=== PATIENT | male | born 1955 | race Asian ===

== ENCOUNTER 2017-01-07 10:03 | Emergency (ER) | payer MEDICARE ==
[~2017-01-07] VITALS: Ht 170.2 cm; Wt 93.2 kg
[~2017-01-07 10:03] MED LIST: AMLO5TAB2 PO; ASPI-973 PO; CALC0.257 PO; CLOP75TA28 PO; FURO-128 PO; INSU100I13 SQ; INSU100I18 SQ; METO25TA6 PO; SIMV40TA5 PO
[2017-01-07 10:14] VITALS: BP 191/102; PULSE 80; RESP 18; O2SAT 98
[2017-01-07] MEDS ORDERED: 0.9% Sodium Chloride 1,000 ML IV ONE (10:26)
--- NOTE | 2017-01-07 10:28 | ED.REPORT ---
HPI-Dizziness / Weakness Date of Service Jan 07, 2017 ED Provider: Cristobal Osorio MD 61 year old male with a history of ND, IDDM and HTN presents to the ER accompanied by his sister referred from urgent care complaining of dizziness onset this morning. Symptoms are described as "wooziness" with ambulation; the sensation of "getting off of a [id number]". Associated symptoms include diaphoresis, and nausea. Patient denies any chest pain, SOB, palpitations, weakness, numbness, tingling, changes in vision, and changes in speech. Currently symptoms are mostly resolved. Similar symptoms with prior ND. He also reports similar episodes in the past, most recently four days ago, but less severe than today. His metoprolol dose was recently adjusted. Nursing Notes Stated Complaint: DIZZY,SWEATING Chief Complaint: Neuro Symptoms/ Deficits Nursing Notes Reviewed: Yes Allergies: Coded Allergies: lisinopril (Verified Adverse Reaction, Unknown, cough, 08/21/16) Scheduled Amlodipine (Amlodipine) 5 Mg Tablet 5 MG PO DAILY Aspirin (Aspirin) 81 Mg Tablet 81 MG PO DAILY Calcitriol (Rocaltrol) 0.25 Mcg Capsule 0.25 MCG PO DAILY Clopidogrel (Clopidogrel) 75 Mg Tablet 75 MG PO DAILY Furosemide (Lasix) 40 Mg Tablet 20 MG PO DAILY Insulin Glargine (Lantus U100 Solostar Insulin Pen) 100 Unit/1 Ml Insuln.pen 40 UNITS SQ DAILY Insulin Lispro (HumaLOG U100 Insulin Pen) 100 Unit/1 Ml Insuln.pen SQ BIDWM Metoprolol Tartrate (Metoprolol Tartrate) 25 Mg Tablet 25 MG PO BID Simvastatin (Simvastatin) 40 Mg Tablet 40 MG PO DAILY General Time Seen by MD: 10:25 Chief Complaint Dizzy Hx Obtained From: Patient Arrived By: Walk-in Onset Occurred: 1 - 4 hours ago Symptom Duration: Since onset Associated with: Reports: Nausea, Denies: Chest pain, Palpitations, Speech problem, Vomiting Related History: Reports: Diabetes mellitus, Hypertension Recent Healthcare: Recent doctor visit Similar Sx Previous: Yes Past Medical History 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 Malave Past Medical History ND Reports: Diabetes mellitus, Hypertension Reports: Renal failure Past Surgical History none reported Smoking History Never Smoker Social History Alcohol Use: "Social" Other Social History: Good social support Ambulatory Status Independent Review of Systems Respiratory: Denies: Non-productive cough, Shortness of breath Cardiovascular: Denies: Chest pain, Palpitations GI: Reports: Nausea, Denies: Vomiting Skin: Reports Diaphoresis Neurologic: Reports: Dizziness, Problem walking, Spinning sensation, Denies: Focal weakness, Numbness, Slurred speech, Syncope Complete sys rev & neg: except as marked. Musculoskeletal: Denies: Extremity swelling Physical Exam Initial Vital Signs Vital Signs (First) Date Time Temp Pulse Resp B/P Pulse Ox O2 Delivery O2 Flow Rate FiO2 01/07/17 10:14 35.9 80 18 191/102 98 Room Air Initial VS: Reviewed Neck: Supple, Non-tender, Full range of motion Abdomen / GI: Soft, Non-tender, No guarding, No rebound, No distention Extremities: Vascular intact, Neuro intact, No swelling, No tenderness Skin: Warm, Dry, No cyanosis Psychiatric: Mood/affect normal, Behavior normal, Normal thought content General/Constitutional: Awake, Alert, Well developed, Well nourished Respiratory / Chest: Breath sounds NL, Breath sounds = bilat, No respiratory distress, No rales, No rhonchi, No wheezing Cardiovascular: Heart rate NL, Regular rhythm, Heart sounds NL, No murmurs, Cap refill not delayed, Peripheral circulation NL Neurologic: Oriented X3, Speech NL, No motor deficits, No sensory deficits, CN II - XII intact, Cerebellar NL Lexx Hallpike test negative. Interpretation & Diagnostics Lab Results Interpretation Result Diagram: 01/07/17 1041 01/07/17 1135 Test 01/07/17 10:41 01/07/17 11:35 01/07/17 13:00 White Blood Count 9.0th/mm3 (3.8-10.1) Red Blood Count 5.01mil/mm3 (4.40-5.80) Hemoglobin 14.5g/dL (13.8-17.2) Hematocrit 42.3% (41.0-50.0) Mean Corpuscular Volume 84.4fL (81-100) Mean Corpuscular Hemoglobin 28.9pg (27.0-35.0) Mean Corpuscular Hemoglobin Concent 34.3% (32.0-37.0) Red Cell Distribution Width 13.9% (12.3-15.4) Platelet Count 219bil/L (150-400) Neutrophils (%) (Auto) 78.4% (40-74) Lymphocytes (%) (Auto) 11.6% (14-46) Monocytes (%) (Auto) 7.8% (4-12) Eosinophils (%) (Auto) 1.9% (0-5) Basophils (%) (Auto) 0.1% (0-3) Sodium Level 138mEq/L (134-144) Potassium Level 4.0mEq/L (3.5-5.2) Chloride Level 104mEq/L (97-108) Carbon Dioxide Level 17mmol/L (18-29) Blood Urea Nitrogen 42mg/dL (8-27) Creatinine 3.15mg/dL (0.76-1.27) Estimat Glomerular Filtration Rate 21mL/min (>59) Glucose Level 267mg/dL (60-99) Calcium Level 8.5mg/dL (8.5-10.1) Magnesium Level 2.0mg/dL (1.6-2.6) Total Bilirubin 0.8mg/dL (0.0-1.2) Aspartate Amino Transf (AST/SGOT) 20U/L (0-50) Alanine Aminotransferase (ALT/SGPT) 21U/L (0-44) Alkaline Phosphatase 91U/L (25-160) Total Protein 6.6g/dL (6.4-8.4) Albumin 3.1g/dL (3.4-5.0) Troponin T 0.041ug/L (0.0-0.011) ECG Interpretation ECG Interpretation: Sinus rhythm, rate [address] T changes Time: 11:14 Interpreted by: ED physician X-Ray Chest Interpretation Chest Xray Interpretation: IMPRESSION: Low lung volumes, interstitial prominence, and cardiomegaly. These findings may be associated with mild fluid overload. Dictated by: Delphine Ford M.D. on 01/07/2017 at 10:52 Approved by: Delphine Ford M.D. on 01/07/2017 at 10:53 View: Portable, 1 view Interpretation / Wet Read by: Interpret - Radiologist Re-Eval/Medical Decision Med Decision/Clinical Course 61-year-old male history of hypertension, diabetes presenting complaining of dizziness today. On arrival his blood pressure was elevated. Gave anti-hypertensive here and his blood pressure was stabilized and his symptoms resolved. He has chronic kidney disease with creatinine of 3. He had initially elevated troponins 0.04. Repeat troponin 2 hours later unchanged. His dizziness resolved. Possibly due to hypertension. His orthostatics were normal. Discussed with cardiology who agrees with stable elevated troponins in the setting of chronic kidney disease okay to discharge home with planned follow-up with primary doctor tomorrow. Return precautions given. Source of Hx: Old records Re-Evaluation/Progress #1: Time of Eval: 10:52 Re-Evaluation/Progress Note: Updated patient on the plan of care. Re-Evaluation/Progress #2: Time of Eval: 15:40 Re-Evaluation/Progress Note: Discussed lab and radiology results and plan to discharge. Patient is amenable to the plan. Return precautions given. All other questions addressed. Consultation : Referral / Consult Name: Blayne Singh MD Consulted With: Cardiology Call Returned at: 15:15 Note: Ok to send home with plan for follow-up. Counseled Regarding: Diagnosis, Lab results, Need for follow-up, When/why to return to ED Patient Discharge & Departure Impression: Primary Impression: Dizziness Disposition: Home Discharge Condition All VS Reviewed: Yes Condition: Stable Additional Instructions: Your dizziness has resolved here in the ER. Call your primary care physician to arrange a follow-up appointment for tomorrow. Return to the ER if you develop worsening dizziness, visual changes, difficulty speaking or swallowing, chest pain, shortness of breath, weakness, tingling, numbness, or any other concerning symptoms. Referrals: Aaron Woods MD (PCP) Carla Rainey MD (Family) Aida Attestation Portions of this note were transcribed by Carlo Hernandez. I, Dr. Osorio, personally performed the history, physical exam and medical decision-making; I reviewed and confirmed the accuracy of the information in the transcribed note. Signed by: Aida Bonilla, 01/07/2017 and 15:36 Carla Rainey MD; Aaron Woods MD, Ben M MD Jan 07, 2017 10:28 CARLO HERNANDEZ Jan 07, 2017 10:50
--- NOTE | 2017-01-07 10:54 | DRSVH ---
PROCEDURE: X-RAY CHEST ONE VIEW, PORTABLE ([id number]) INDICATIONS: dizziness TECHNIQUE: One view of the chest was acquired. COMPARISON: [facility], CR, XR CHEST 1VW (PORTABLE), 08/21/2016, 0:58. FINDINGS: Surgical changes and devices: None. Lungs and pleura: Lung volumes are low. Streaky opacities are present in the bilateral lung bases. Th ere is diffuse interstitial prominence. Mediastinum: Mediastinal contours appear normal. Heart size is enlarged, as before. Bones and chest wall: No suspicious bony lesions. Overlying soft tissues appear unremarkable. IMPRESSION: Low lung volumes, interstitial prominence, and cardiomegaly. These findings may be associ ated with mild fluid overload. Dictated by: Delphine Ford M.D. on 01/07/2017 at 10:52 Approved by: Delphine Ford M.D. on 01/07/2017 at 10:53
[2017-01-07] MEDS ORDERED: hydrALAZINE 20 mg/mL Inj IV ONE (10:55)
[2017-01-07] MEDS ORDERED: Insulin GLARgine 100 Unit/mL Syringe SUBQ ONE (10:55)
[2017-01-07] MEDS ORDERED: Insulin LISPRO 300 Unit/3 mL Inj SUBQ ONE (10:55)
[2017-01-07 10:59] LABS: BASOPHILS % (AUTO) 0.1 % (0-3); EOSINOPHILS % (AUTO) 1.9 % (0-5); MONOCYTES % (AUTO) 7.8 % (4-12); Mean Corpuscular Hemoglobin 28.9 pg (27.0-35.0); Mean Corpuscular Volume 84.4 fL (81-100); NEUTROPHILS % (AUTO) 78.4 % (40-74); Platelet Count 219 bil/L (150-400)
[2017-01-07 11:01] VITALS: BP 166/93; PULSE 82; RESP 21; O2SAT 96
[2017-01-07 11:26] VITALS: BP_SYST 142; BP_SYST 159; BP_SYST 173; BP_DIAS 84; BP_DIAS 85
[2017-01-07 12:39] LABS: TROPONIN T 0.039 ug/L (0.0-0.011)
[2017-01-07 13:26] VITALS: PULSE 91; O2SAT 95
[2017-01-07 15:51] VITALS: BP 163/82; PULSE 88; RESP 20; O2SAT 96
[2017-03-14] MEDS ORDERED: SODI650T PO (10:04)
[2017-03-14] MEDS ORDERED: NITR0.4T SL (10:04)
== END 2017-01-07 15:51 | disposition home or self-care (01) ==
LOC: SED 10:03
DX: R42 Dizziness and giddiness (principal); R61 Generalized hyperhidrosis; R11.0 Nausea; I11.9 Hypertensive heart disease without heart failure; E11.59 Type 2 diabetes mellitus with other circulatory complications; I25.2 Old myocardial infarction; Z79.82 Long term (current) use of aspirin; Z79.4 Long term (current) use of insulin; Z88.8 Allergy status to other drugs, medicaments and biological substances
CPT/HCPCS: 36415; 71010; 80053; 82948; 83735; 84484; 85025; 93005; 96361; 96372; 96374; 99285; J0360; J1815; J7030

== ENCOUNTER 2017-01-27 03:03 | Inpatient (IN) | payer MEDICARE ==
[2017-01-27] VITALS (13 sets, daily range): BP systolic 127–173; BP diastolic 75–93; PULSE 70–109; RESP 20–36; O2SAT 89–98
[~2017-01-27] VITALS: Ht 170.2 cm; Wt 95.5 kg
[2017-01-27] MEDS ORDERED: Albuterol 2.5 mg/3 mL Inhalation Solution NEB ONE (03:19)
[2017-01-27] MEDS ORDERED: Albuterol-Ipratropium 3 mL Inhalation Solution ONE (03:19)
[2017-01-27 03:23] LABS: BASOPHILS % (AUTO) 0.2 % (0-3); EOSINOPHILS % (AUTO) 3.8 % (0-5); MONOCYTES % (AUTO) 10.4 % (4-12); Mean Corpuscular Hemoglobin 28.8 pg (27.0-35.0); Mean Corpuscular Volume 84.9 fL (81-100); NEUTROPHILS % (AUTO) 69.3 % (40-74); Platelet Count 280 bil/L (150-400)
--- NOTE | 2017-01-27 03:35 | ED.REPORT ---
HPI-General Illness Date of Service Jan 27, 2017 ED Provider: Suresh Martinez MD Patient is a 61 year old male with a history of coronary artery disease with prior NSTEMI, hypertension, hyperlipidemia, diabetes mellitus, and chronic kidney disease who presents to the ED via EMS complaining of increasing shortness of breath for the past 2-3 weeks. Patient is on a CPAP at night and states that he awoke from sleep this morning feeling very short of breath. The patient reports dyspnea on exertion, with even short stretches causing him to become short of breath. The patient admits to increased swelling in his legs in conjunction with his shortness of breath. He denies a productive cough, chest pain, fever, or chills. The patient was seen by his PCP on January 23 for this complaint. Nursing Notes Stated Complaint: SHORT OF BREATH Chief Complaint: Respiratory Distress Nursing Notes Reviewed: Yes Allergies: Coded Allergies: lisinopril (Verified Adverse Reaction, Unknown, cough, 01/27/17) Scheduled Amlodipine (Amlodipine) 5 Mg Tablet 5 MG PO BID Aspirin (Aspirin) 81 Mg Tablet 81 MG PO DAILY Atorvastatin (Lipitor) 40 Mg Tablet 40 MG PO HS Calcitriol (Rocaltrol) 0.25 Mcg Capsule 0.5 MCG PO DAILY Cholecalciferol (Vitamin D3) (Vitamin D3) 2,000 Unit Capsule 2,000 UNIT PO DAILY Clopidogrel (Clopidogrel) 75 Mg Tablet 75 MG PO DAILY Furosemide (Lasix) 40 Mg Tablet 20 MG PO DAILY Insulin Glargine (Lantus U100 Solostar Insulin Pen) 100 Unit/1 Ml Insuln.pen 45 UNITS SQ HS Insulin Lispro (HumaLOG U100 Insulin Pen) 100 Unit/1 Ml Insuln.pen SQ BIDWM 18-22 units subcutaneous route two times a day with meals for diabetes Metoprolol Tartrate (Metoprolol Tartrate) 25 Mg Tablet 50 MG PO BID General Time Seen by MD: 03:08 Chief Complaint Breathing problem Hx Obtained From: Patient Arrived By: Ambulance Sudden in Onset?: No Onset Occurred: More than a week ago... 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 Malave Past Medical History CKD stage 3 NSTEMI depression anxiety Reports: Coronary artery disease, Diabetes mellitus, Hypertension Reports: Renal failure Past Surgical History Cardiac Catheterization in 2008 kidney biopsy right toe amputation Smoking History Former Smoker Social History Alcohol Use: "Social" Other Social History: Good social support, Local resident Ambulatory Status Independent Review of Systems Full Review of Systems Constitutional: Denies: Chills, Fever Respiratory: Reports: Dyspnea on exertion, Shortness of breath, Denies: Prod cough, green, Prod cough, yellow Cardiovascular: Denies: Chest pain Musculoskeletal: Reports: Extremity swelling Complete sys rev & neg: except as marked. Physical Exam Vital Signs Vital Signs Date Time Temp Pulse Resp B/P Pulse Ox O2 Delivery O2 Flow Rate FiO2 01/27/17 03:54 84 26 158/75 98 7 01/27/17 03:27 92 30 98 Aerosol Mask 8 01/27/17 03:17 36 97 Nasal Cannula 4 01/27/17 03:11 36.7 92 33 171/93 89 Room Air Initial VS: Reviewed Skin: Warm, Dry, No cyanosis Neurologic: Alert, Oriented, Nonfocal Psychiatric: Mood/affect normal, Behavior normal, Normal thought content General/Constitutional: Awake, Alert, No acute distress Appearance / Presentation: Positive: Obese Head / Eyes: Atraumatic, Normocephalic, PERRL ENT: Airway patent, Mucous membranes moist Neck: Atraumatic, Supple Respiratory / Chest: No respiratory distress, No wheezing Rales / Rhonchi: Positive: Rales bilateral bases Cardiovascular: Heart rate NL, Regular rhythm, Heart sounds NL, No murmurs Abdomen: Soft, Non-tender, No guarding, No rebound Upper Extremities Upper Extremity / MS: No swelling, No edema Lower Extremity / Pelvis / MS: Neurologic intact, Vascular intact 2+ pitting edema to the legs bilaterally, with chronic skin changes Interpretation & Diagnostics Lab Results Interpretation Result Diagram: 01/27/17 0310 01/27/17 0310 Test 01/27/17 03:10 01/27/17 03:15 01/27/17 04:20 White Blood Count 9.1th/mm3 (3.8-10.1) Red Blood Count 4.96mil/mm3 (4.40-5.80) Hemoglobin 14.3g/dL (13.8-17.2) Hematocrit 42.1% (41.0-50.0) Mean Corpuscular Volume 84.9fL (81-100) Mean Corpuscular Hemoglobin 28.8pg (27.0-35.0) Mean Corpuscular Hemoglobin Concent 34.0% (32.0-37.0) Red Cell Distribution Width 14.5% (12.3-15.4) Platelet Count 280bil/L (150-400) Neutrophils (%) (Auto) 69.3% (40-74) Lymphocytes (%) (Auto) 16.0% (14-46) Monocytes (%) (Auto) 10.4% (4-12) Eosinophils (%) (Auto) 3.8% (0-5) Basophils (%) (Auto) 0.2% (0-3) Sodium Level 140mEq/L (134-144) Potassium Level 3.9mEq/L (3.5-5.2) Chloride Level 105mEq/L (97-108) Carbon Dioxide Level 16mmol/L (18-29) Blood Urea Nitrogen 78mg/dL (8-27) Creatinine 4.03mg/dL (0.76-1.27) Estimat Glomerular Filtration Rate 16mL/min (>59) Glucose Level 122mg/dL (60-99) Calcium Level 9.8mg/dL (8.5-10.1) Total Bilirubin 0.8mg/dL (0.0-1.2) Aspartate Amino Transf (AST/SGOT) 29U/L (0-50) Alanine Aminotransferase (ALT/SGPT) 26U/L (0-44) Alkaline Phosphatase 101U/L (25-160) Troponin T 0.072ug/L (0.0-0.011) Pro-B-Type Natriuretic Peptide 1289pg/mL (0-210) Total Protein 8.0g/dL (6.4-8.4) Albumin 4.1g/dL (3.4-5.0) Magnesium Level 2.4mg/dL (1.6-2.6) Hold [place] Top Tube Received (Received) ECG Interpretation ECG Interpretation: Sinus rhythm, Rate 90 Probable left atrial enlargement Right axis deviation Time: 03:30 Interpreted by: ED physician Normal ECG Interpretation: No acute ischemic changes X-Ray Chest Interpretation Chest Xray Interpretation: Impression: Left lower lobe pneumonia. Pleural effusions right lower lobe. Changes consistent with CHF. View: Portable Interpretation / Wet Read by: Wet read ED physician Reviewed Previous Films: Worse Re-Eval/Medical Decision Med Decision/Clinical Course 61-year-old presents with shortness of breath over a two week span worsening today, finally forced in here by female family members. Is a left lower lobe pneumonia on x-ray. Begun with community-acquired pneumonia meds. He will need admission, as he was fairly short of breath, and has acute kidney injury, worsening over the past several months, and some complicating CHF as an issue. Troponin is noted elevated, but probably concomitant with his renal failure. Transported in improved condition. Source of Hx: Old records Time of Eval: 04:13 Patient Status: Condition improved Re-Evaluation/Progress Note: The patient was informed that he has pneumonia. Patient will be admitted to the hospital for further care. Patient understands and agrees with this plan. All questions were addressed. Consultation : Referral / Consult Name: Mary Smith DO Consulted With: Hospitalist Call Returned at: 04:27 Lay Brother: Will see patient, Agrees with eval, Agrees with plan, Accepts admit Note: Spoke with Dr. Smith, hospitalist, who agrees to accept admit. Counseled Regarding: Diagnosis, Lab results, Need for admission Discharge & Departure Primary Impression: Pneumonia Pneumonia type: due to unspecified organism Laterality: left Lung location : lower lobe of lung Qualified Code: J18.9 - Pneumonia, unspecified organism Additional Impressions: CHF (congestive heart failure) Congestive heart failure type: unspecified congestive heart failure type Congestive heart failure chronicity: acute Qualified Code: I50.9 - Heart failure, unspecified Elevated troponin Disposition: ADMITTED TO HOSPITAL Discharge Condition All VS Reviewed: Yes Condition: Stable Referrals: Aaron Woods MD (PCP) Carla Rainey MD (Family) Aida Attestation Portions of this note were transcribed by Philomena Ludwig. I, Dr. Martinez personally performed the history, physical exam and medical decision-making; I reviewed and confirmed the accuracy of the information in the transcribed note. Signed by: Aida Whyte, 01/27/2017 0537 copies to: Aaron Woods MD, Christopher W MD Jan 27, 2017 03:35 Philomena Ludwig Jan 27, 2017 03:37
[2017-01-27] MEDS ORDERED: cefTRIAXone Inj 2,000 MG in Dextrose 5% Minibag Plus 50 ML IV ONE (04:05)
[2017-01-27] MEDS ORDERED: Azithromycin Inj 500 MG in Dextrose 5% w/Vial Mate 250 ML IV ONE (04:05)
[2017-01-27 04:23] LABS: TROPONIN T 0.072 ug/L (0.0-0.011)
[2017-01-27] MEDS ORDERED: Alum-Mag Hydrox-Simeth 30 mL Suspension PO PRN (04:30)
[2017-01-27] MEDS ORDERED: Polyethylene Glycol (PEG) 17 Gm Powder PO PRN (04:30)
[2017-01-27] MEDS ORDERED: Ondansetron 2 mg/mL 2 mL Inj IVPUSH PRN (04:30)
--- NOTE | 2017-01-27 05:23 | PCM.HPMED ---
Subjective Date of Service Jan 27, 2017 Primary Provider: Admitting Physician: Mary Smith DO Primary Care Physician: Aaron Woods MD Attending Physician: Mary Smith DO Admit Status: From the Emergency Department Chief Complaint: Shortness of breath History of Present Illness: 61 year old man with history of HTN, DM2 with retinopathy and neuropathy, hyperlipidemia, CAD s/p catheterization in 2007 and prior NSTEMI who presented to the ED via EMS with the complaint of shortness of breath for the last 2-3 weeks. Associated symptoms include dyspnea on exertion, worsening bilateral lower extremity edema and mild nausea. He states that he has never had anything like this before and he initially attibuted his shortness of breath to allergies with the change in weather. However, his symptoms gradually have become worse until today when he states that he could barely walk 10feet to the bathroom without significant difficulty breathing. He denies chest pain, fever, chills, productive cough, recent illness or sick contacts, change in medications , GI or symptoms. In the ED, afebrile with a temperature of 36.7, hypertensive with BP 171/93 and pulse of 84 and tachypneic with a respiratory rate of 26-33. SpO2 98% on 4L nasal cannula. Labs were significant for an initial troponin of 0.072, proBNP 1289, WBC of 9.1, Hgb/Hct of 14.3/42.1, sodium 140, potassium 3.9, chloride 105 , bicarb 16, BUN 78, creatinine 4.03, serum glucose of 122, magnesium 2.4. EKG showing sinus rhythm, rate 90 with right axis deviation and probable left atrial enlargement but no acute ischemic changes. Wet read of chest xray in the ED showing right-sided pleural effusion and LLL consolidation. Review of Systems: A comprehensive review of systems was conducted with the patient and found to be negative except as above in the History of Present Illness. Allergies Coded Allergies: lisinopril (Verified Adverse Reaction, Unknown, cough, 01/27/17) Home Medications Amlodipine 5 MG PO DAILY Aspirin 81 MG PO DAILY Calcitriol (Rocaltrol) 0.25 MCG PO DAILY Clopidogrel 75 MG PO DAILY Furosemide 20 MG PO DAILY Insulin Glargine 40 UNITS SQ DAILY Insulin Lispro 100 Unit/1 Ml Insuln.pen SQ BIDWM Metoprolol Tartrate 25 MG PO BID Simvastatin 40 MG PO DAILY PMH CKD stage 3 Coronary artery disease s/p catheterization in 2007 Diabetes mellitus type 2 w/retinopathy and neuropathy Hypertension Hyperlipidemia NSTEMI Obesity Surgical History Cardiac Catheterization in 2007 Family History Several close male relatives with DM2 Sister with breast cancer in remission Social History Hx Alcohol Use: Yes (socially) Hx Substance Use: No Hx Tobacco Use: No Smoking Status: Never Smoker Living Arrangement: with Family Exam Vital Signs Vital Sign - Last Date Time Temp Pulse Resp B/P Pulse Ox O2 Delivery O2 Flow Rate FiO2 01/27/17 03:54 84 26 158/75 98 7 01/27/17 03:27 Aerosol Mask 01/27/17 03:11 36.7 Exam General: Well-developed, well-nourished, in no acute distress, appropriately interactive HEENT: Normocephalic, atraumatic. PERRLA, anicteric sclerae, moist conjunctivae , and no lid lag. Oropharynx free of erythema and cobble stoning with moist mucosa. Neck: Supple with full range of motion. No jugular venous distension. No bruits. No lymphadenopathy or thyromegaly. Cardiovascular: Regular rate and rhythm with no murmurs, rubs, or gallops appreciated Pulmonary: Diminished breath sounds diminished at the bases bilaterally, crackles at the left base, no wheezes, no use of accessory muscles. Abdomen: Bowel tones present. Soft, nontender, nondistended. No hepatosplenomegaly or masses appreciated. Extremities: Bilateral pitting edema to the knee, chronic skin changes, no clubbing, cyanosis Skin: Normal temperature, turgor, and texture; no rash, ulcers, or subcutaneous nodules appreciated. Neurological: Cranial nerves grossly intact. Normal muscle strength, tone, and bulk. Reflexes, coordination, and sensory function within normal limits. No known gait impairment. Psychiatric: Normal mood and affect. Alert and oriented to person, place, and time. Lab and Diagnostics Labs Laboratory Tests Test 01/27/17 03:10 01/27/17 03:15 01/27/17 04:20 White Blood Count 9.1th/mm3 (3.8-10.1) Red Blood Count 4.96mil/mm3 (4.40-5.80) Hemoglobin 14.3g/dL (13.8-17.2) Hematocrit 42.1% (41.0-50.0) Mean Corpuscular Volume 84.9fL (81-100) Mean Corpuscular Hemoglobin 28.8pg (27.0-35.0) Mean Corpuscular Hemoglobin Concent 34.0% (32.0-37.0) Red Cell Distribution Width 14.5% (12.3-15.4) Platelet Count 280bil/L (150-400) Neutrophils (%) (Auto) 69.3% (40-74) Lymphocytes (%) (Auto) 16.0% (14-46) Monocytes (%) (Auto) 10.4% (4-12) Eosinophils (%) (Auto) 3.8% (0-5) Basophils (%) (Auto) 0.2% (0-3) Sodium Level 140mEq/L (134-144) Potassium Level 3.9mEq/L (3.5-5.2) Chloride Level 105mEq/L (97-108) Carbon Dioxide Level 16mmol/L (18-29) Blood Urea Nitrogen 78mg/dL (8-27) Creatinine 4.03mg/dL (0.76-1.27) Estimat Glomerular Filtration Rate 16mL/min (>59) Glucose Level 122mg/dL (60-99) Calcium Level 9.8mg/dL (8.5-10.1) Total Bilirubin 0.8mg/dL (0.0-1.2) Aspartate Amino Transf (AST/SGOT) 29U/L (0-50) Alanine Aminotransferase (ALT/SGPT) 26U/L (0-44) Alkaline Phosphatase 101U/L (25-160) Troponin T 0.072ug/L (0.0-0.011) Pro-B-Type Natriuretic Peptide 1289pg/mL (0-210) Total Protein 8.0g/dL (6.4-8.4) Albumin 4.1g/dL (3.4-5.0) Magnesium Level 2.4mg/dL (1.6-2.6) Hold [place] Top Tube Received (Received) Microbiology 01/27/17 Blood Culture, Received Pending Result Diagram: 01/27/1730901/27/17309 Microbiology Blood cultures- pending. Assessment & Plan 61 y/o male with DM2 insulin-using, hypertension, hyperlipidemia, CAD s/p catheterization in 2007, and CKD stage 3 who presented to the ED via EMS c/o SOB and admitted for further evaluation and treatment of possible community pneumonia, CHF exacerbation and possible NSTEMI. 1. Possible community acquired pneumonia, present on admission. Active. -Afebrile. WBC 9.1. Tachypneic on admission w/ SpO2 98% on 4L nasal cannula. -CXR w/initial read showing right-sided pleural effusion and possible LLL consolidation. -Received IV rocephin/azithromycin in the ED. -Blood cultures pending, sputum culture ordered. -Repeat CXR in am. -Continue IV antibiotics. 2. Probable CHF exacerbation, present on admission. Active. -Echo on 08/21/2016 showed mild-moderate LVH, EF 50-55%, grade 2 diastolic dysfunction. -Pt clinically hypervolemic w/ right-sided pleural effusion noted on initial CXR -Continue home amlodipine, metoprolol tartrate -Lasix 40 mg IV daily 3. Elevated troponin, present on admission. Active -Pt w/hx of prior NSTEMI, CAD s/p catheterization in 2007. -EKG with no acute ischemic changes and concern for NSTEMI. -Initial troponin 0.072, will trend. -Start telemetry, supplemental O2 as needed. -Continue home statin, aspirin and plavix. -Consider Cardiology consultation if Troponins trend upward 4. Acute kidney injury, present on admission. Active. -Etiology unclear, possibly ATN. 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 -Holding fluid resuscitation secondary to active diuresis -Consider Nephrology consult if creatinine trends up 5. Chronic diabetes mellitus type 2, insulin-using, present on admission. Active -Last A1c 7.3 on 08/21/16. Serum glucose on admission 122 -Home insulin regimen: Insulin Glargine 40 UNITS SQ DAILY; Insulin Lispro 100 Unit/1 Ml Insuln.pen SQ BIDWM -Lispro low dose correctional scale ordered. -Start insulin glargine for basal coverage, 20Units sq daily. 6. Chronic Hypertension, present on admission. Active. -BP on admission, 150s-170s/70s-90s. -Continue home dosing amlodipine, metoprolol -Lasix as above. 7. Chronic hyperlipidemia, present on admission. Presumed stable. -Continue home statin. - Acetaminophen as needed for mild pain/fever/headache - Bowel regimen as needed - Antiemetic as needed Patient is admitted under inpatient status with expected length of stay greater than 2 midnights due to severity of presenting symptoms, risk of adverse event, and complexity of treatment plan. Pain Evaluation: Adequate Pain Control VTE Prophylaxis Indicated: Meets Criteria for Anticoag Therapy VTE Prophylaxis: Sub-Q Heparin (Unfractionated) VTE Mechanical Devices: Intermittant Pneumatic CD Resuscitation Status: CPR: Attempt Resuscitation Attending Statement The patient was seen and examined together with house staff on 01/27/17 and I agree with the history, exam and plan as outlined in the note above. Radha Dalton DO Jan 27, 2017 05:23 Mary Smith DO Jan 28, 2017 05:47 -Start insulin glargine for basal coverage, 20Units sq daily. 6. Chronic Hypertension, present on admission. Active. -BP on admission, 150s-170s/70s-90s. -Continue home dosing amlodipine, metoprolol -Lasix as above. 7. Chronic hyperlipidemia, present on admission. Presumed stable. -Continue home statin. - Acetaminophen as needed for mild pain/fever/headache - Bowel regimen as needed - Antiemetic as needed Patient is admitted under inpatient status with expected length of stay greater than 2 midnights due to severity of presenting symptoms, risk of adverse event, and complexity of treatment plan. Pain Evaluation: Adequate Pain Control VTE Prophylaxis Indicated: Meets Criteria for Anticoag Therapy VTE Prophylaxis: Sub-Q Heparin (Unfractionated) VTE Mechanical Devices: Intermittant Pneumatic CD Resuscitation Status: CPR: Attempt Resuscitation Radha Dalton DO Jan 27, 2017 05:23 280bil/L (150-400) Neutrophils (%) (Auto) 69.3% (40-74) Lymphocytes (%) (Auto) 16.0% (14-46) Monocytes (%) (Auto) 10.4% (4-12) Eosinophils (%) (Auto) 3.8% (0-5) Basophils (%) (Auto) 0.2% (0-3) Sodium Level 140mEq/L (134-144) Potassium Level 3.9mEq/L (3.5-5.2) Chloride Level 105mEq/L (97-108) Carbon Dioxide Level 16mmol/L (18-29) Blood Urea Nitrogen 78mg/dL (8-27) Creatinine 4.03mg/dL (0.76-1.27) Estimat Glomerular Filtration Rate 16mL/min (>59) Glucose Level 122mg/dL (60-99) Calcium Level 9.8mg/dL (8.5-10.1) Total Bilirubin 0.8mg/dL (0.0-1.2) Aspartate Amino Transf (AST/SGOT) 29U/L (0-50) Alanine Aminotransferase (ALT/SGPT) 26U/L (0-44) Alkaline Phosphatase 101U/L (25-160) Troponin T 0.072ug/L (0.0-0.011) Pro-B-Type Natriuretic Peptide 1289pg/mL (0-210) Total Protein 8.0g/dL (6.4-8.4) Albumin 4.1g/dL (3.4-5.0) Magnesium Level 2.4mg/dL (1.6-2.6) Hold [place] Top Tube Received (Received) Microbiology 01/27/17 Blood Culture, Received Pending Result Diagram: 01/27/1730901/27/17309 Radha Dalton DO Jan 27, 2017 05:23
[2017-01-27] MEDS ORDERED: CHOL200047 PO (06:16)
[2017-01-27] MEDS ORDERED: LIP40 PO (06:18)
--- NOTE | 2017-01-27 07:24 | NUR ---
Arrival to [facility] Pt arrived to [facility] at 0550. Placed pt on tele. Pt on 4L O2 NC, RR 34, oxygen sat in the 90's. Med rec completed by med list. Admit questions not completed, report given to day shift RN.
[2017-01-27] MEDS: Heparin 5,000 Unit/mL Inj SUBQ SCH ×2 (08:11→16:59)
[2017-01-27] MEDS: Furosemide 10 mg/mL 4 mL Inj IVPUSH SCH (08:11)
--- NOTE | 2017-01-27 08:23 | DRSVH ---
PROCEDURE: X-RAY CHEST ONE VIEW, PORTABLE ([id number]) INDICATIONS: SOB TECHNIQUE: One view of the chest was acquired. COMPARISON: 07/18/2012 FINDINGS: Surgical changes and devices: None. Lungs and pleura: No pleural effusions or pneumothorax. There is mild interstitial prominence in the right lower lobe. Infiltrate and atelectasis is present in the left lower lobe, obscuring the descen ding aorta and portion of the left hemidiaphragm. Mediastinum: Mediastinal contours appear normal. Heart size is normal. Aortic calcifications. Bones and chest wall: No suspicious bony lesions. Thoracic spondylosis. Overlying soft tissues appe ar unremarkable. IMPRESSION: 1. Left lower lobe and possibly right lower lobe pneumonia Dictated by: George Garcia M.D. on 01/27/2017 at 8:20 Approved by: George Garcia M.D. on 01/27/2017 at 8:22
--- NOTE | 2017-01-27 10:04 | NUR ---
oxygen Lowered patient from 4.5L NC with Sp02 95% to 3L NC. Will re-check Sp02 at new level. RR 26 Addendum: 01/27/17 at 1338 by LATOYA MERLOS RN Re-assessed at 3L and pts Sp02 was at 96%. Lowered to 2L NC
[2017-01-27] MEDS ORDERED: Insulin LISPRO 300 Unit/3 mL Inj SUBQ PRN (13:45)
[2017-01-27] MEDS ORDERED: Furosemide 10 mg/mL 4 mL Inj IVPUSH ONE (13:45)
--- NOTE | 2017-01-27 13:45 | PCM.PNMED ---
Subjective Date of Service Jan 27, 2017 Subjective Overall feeling a bit better, did diurese with the IV Lasix. No productive cough or sputum production, Exam Vital Signs Vital Sign - Last Date Time Temp Pulse Resp B/P Pulse Ox O2 Delivery O2 Flow Rate FiO2 01/27/17 13:16 36.4 97 28 146/89 96 Nasal Cannula 3.00 Exam Eyes; jacques, eom intact ENMT; good hydration, moist mucus membranes CV; S1S2 present, soft systolic murmur, no S3 Resp; decreased breath sound bases, few crackles, no wheezing GI; soft and benign Skin; no rashes, dry Neuro; 2-12 intact, no focal motor defects Lab and Diagnostics Result Diagram: 01/27/1730901/27/17309 Microbiology Blood cultures- pending. Assessment & Plan 61 y/o male with DM2 insulin-using, hypertension, hyperlipidemia, CAD s/p catheterization in 2007, and CKD stage 3 who presented to the ED via EMS c/o SOB and admitted for further evaluation and treatment of possible community pneumonia, CHF exacerbation and possible NSTEMI. 1. Possible community acquired pneumonia, present on admission. Active. -given antibiotic in ER, then not continued. -Will continue to hold antibiotics and check a procalcitonin and CBC 2. Probable CHF exacerbation, present on admission. Active. -Echo on 08/21/2016 showed mild-moderate LVH, EF 50-55%, grade 2 diastolic dysfunction. -give additional dose lasix watch I&Os -repeat bnp and cxr in am 3. exertionl chest pain, present on admission, active -Pt w/hx of prior NSTEMI, CAD s/p catheterization in 2007. -EKG with no acute ischemic changes and concern for NSTEMI. -Initial troponin 0.072, will trend. -Start telemetry, supplemental O2 as needed. -Continue home statin, aspirin and plavix. -Consider Cardiology consultation 4. Acute on chronic kidney injury, present on admission. Active. 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 -will diurese and if creatinine does not iomprove consider nephrology consultation 5. Chronic diabetes mellitus type 2, insulin-using, present on admission. Active -Last A1c 7.3 on 08/21/16. Serum glucose on admission 122 -Home insulin regimen: Insulin Glargine 40 UNITS SQ AM; Humalog 12-22 unitics bid AC -Lantus 8 now then 45 q AM and Humalog 12-22 units AC tid patient to pick own dose 6. Chronic Hypertension, present on admission. Active. -BP on admission, 150s-170s/70s-90s. -Continue home dosing amlodipine, metoprolol -Lasix as above. 7. Chronic hyperlipidemia, present on admission. Presumed stable. -Continue home statin. - Acetaminophen as needed for mild pain/fever/headache - Bowel regimen as needed - Antiemetic as needed Patient is admitted under inpatient status with expected length of stay greater than 2 midnights due to severity of presenting symptoms, risk of adverse event, and complexity of treatment plan. VTE Prophylaxis: Sub-Q Heparin (Unfractionated) VTE Mechanical Devices: Intermittant Pneumatic CD Resuscitation Status: CPR: Attempt Resuscitation Julia Melo MD Jan 27, 2017 13:45
[2017-01-27] MEDS ORDERED: Insulin GLARgine 100 Unit/mL Syringe SUBQ ONE (15:00)
[2017-01-27 16:12] LABS: APPEARANCE,URINE CLEAR (CLEAR,HAZY); COLOR,URINE YELLOW (YELLOW); OCCULT BLOOD,URINE MODERATE (NEGATIVE)
[2017-01-27 16:13] LABS: UROBILINOGEN,URINE NORMAL (NORMAL)
--- NOTE | 2017-01-27 16:18 | NUR ---
Social Work - Initial Assessment Data:See initial assessment. Pt is a 61 y/o male who was admitted on 01/27/17 for community aacquired pneumonia per H&P. Pt's insurance is Medicare and PCP is Aaron Woods MD. EMR Reviewed. Pt's readmission score is not available. SW met with pt at bedside to discuss discharge planning, SW role explained. Pt is alert and oriented x3. Pt resides at home with mother for whom he provides 24/7 care in a single level home with one step to enter. Pt remains independent with basic ADLs, uses no DME and drives POV. Pt has no HH or SNF history. Pt reports he has completed DPOA/ advanced directive and SW requested he provide the hospital with a copy. Pt has skilled nursing care benefits and doesn't have VA benefits. Pt's sister to provide transport home at discharge. SW provided phone number and plan on white board in room. SW will continue to follow. Assessment:Pt who resides at home with mother and is independent at baseline. Plan:Pt to likely discharge home with no needs. SW will continue to follow. DALJIT Mulligan
--- NOTE | 2017-01-27 17:39 | NUR ---
Chest pain C/O sternum pain 01/03. Denies pain radiating to LUE. Pain does cause increased SOB. O2 increased to 4LPM NC. Lungs diminished anterior. Intermittent non productive cough. C/o increased lethargy. Per awake overnight monitor sinus 90's. notified. Stat EKG obtained. Nitro x 1 dose given at 1744. Lab notified to obtain stat PTT to start heparin GTT which was drawn.
[2017-01-27] MEDS: Heparin 25K Unit/500mL 0.45 NS 25,000 UNIT in IV Premix 1 EACH IV SCH (17:51)
--- NOTE | 2017-01-27 18:13 | NUR ---
chest pain resolved rechecked pt s bp after ntg and vs changed from BP 173/91 P102 RR30 Sp02 93% on 3L to BP 138/78 P94 RR33 Sp02 96% on 4L. Pt stated that chest pain was resolve 0. MD notified and nitro paste held. Heparin drip started after baseline PTT. Pt is eating food and has mp30 set up
[2017-01-27] MEDS ORDERED: Nitroglycerin 2% 1 Gm Ointment TOPICAL ONE (18:30)
[2017-01-28] VITALS (9 sets, daily range): BP systolic 108–151; BP diastolic 69–117; PULSE 66–85; RESP 19–23; O2SAT 86–95
[2017-01-28] MEDS: Heparin 5,000 Unit/mL Inj IVPUSH PRN ×3 (00:11→19:28)
--- NOTE | 2017-01-28 04:43 | NUR ---
Trops: Pt's troponin continues to climb. Cooks page sent to night resident, no new orders. Pt is on a heparin drip, denies chest pain through the night. Cardiology consult ordered. Pt states breathing seems to have improved since arriving to the hospital. While awake, pt was on 3.5L NC, sats mid 90s. Tolerated home CPAP thus far tonight, states this is fairly new for him. While sleeping with CPAP, sats mostly over 92%, at times dipping to 88% briefly.
[2017-01-28 06:45] LABS: BASOPHILS % (AUTO) 0.3 % (0-3); EOSINOPHILS % (AUTO) 5.4 % (0-5); MONOCYTES % (AUTO) 11.2 % (4-12); Mean Corpuscular Hemoglobin 28.7 pg (27.0-35.0); Mean Corpuscular Volume 85.6 fL (81-100); NEUTROPHILS % (AUTO) 63.6 % (40-74); Platelet Count 212 bil/L (150-400)
[2017-01-28 08:27] LABS: TROPONIN T 1.54 ug/L (0.0-0.011)
[2017-01-28] MEDS: Furosemide 10 mg/mL 4 mL Inj IVPUSH SCH (09:21)
--- NOTE | 2017-01-28 09:26 | DRSVH ---
PROCEDURE: X-RAY CHEST ONE VIEW, PORTABLE ([id number]) INDICATIONS: SHORT OF BREATH TECHNIQUE: One view of the chest was acquired. COMPARISON: 01/27/2017 FINDINGS: Surgical changes and devices: None. Lungs and pleura: Small bilateral pleural effusions, no pneumothorax. Bilateral lower lobe infiltrate s left greater than right with no significant change Mediastinum: Mediastinal contours appear normal. Heart size is normal. Bones and chest wall: No suspicious bony lesions. Overlying soft tissues appear unremarkable. IMPRESSION: Bilateral lower lobe pneumonia. Small bilateral parapneumonic effusions. Dictated by: George Garcia M.D. on 01/28/2017 at 9:24 Approved by: George Garcia M.D. on 01/28/2017 at 9:25
--- NOTE | 2017-01-28 09:28 | PCM.PNMED ---
Subjective Date of Service Jan 28, 2017 Subjective Late yesterday afternoon patient had chest pain that resolved with SL NTG,, patient now on a Heparin drip, troponin has gone up to 1.35. I again reviewed case with Dr. Moore this morning, he will see patient shortly and is updated. Overnight patient has done well with no further chest pain or other complaints. Exam Vital Signs Vital Sign - Last Date Time Temp Pulse Resp B/P Pulse Ox O2 Delivery O2 Flow Rate FiO2 01/28/17 06:52 36.6 67 23 151/88 94 CPAP 01/27/17 17:52 4.00 Intake and Output 01/27/17 01/27/17 01/28/17 Cumulative From/Thru 15:00 23:00 07:00 01/27/17 03:11 - 01/28/17 06:44 Intake Total 1293 ml 243 ml 1536 ml Output Total 2225 ml 2225 ml Balance -932 ml 243 ml -689 ml Intake Oral 1293 ml 1293 ml IV Total 243 ml 243 ml Output Urine Total 2225 ml 2225 ml # Bowel Movements 0 0 Exam Eyes; jacques, eom intact ENMT; good hydration, no lesions CV; S1S2 present with soft systolic murmur Resp; decreased breath sounds bases but less crackles and rales in bases GI: soft, non-acute benign, non tender Skin; no rashes, dry Neuro; 2-12 intact no motor defects IVs and Medications Medications Reviewed: Medications were reviewed in detail Lab and Diagnostics Result Diagram: 01/28/1762401/28/17624 Microbiology Blood cultures- pending. Assessment & Plan 61 y/o male with DM2 insulin-using, hypertension, hyperlipidemia, CAD s/p catheterization in 2007, and CKD stage 3 who presented to the ED via EMS c/o SOB and admitted for further evaluation and treatment of possible community pneumonia, CHF exacerbation and possible NSTEMI. 1. Possible community acquired pneumonia, present on admission. never had pneumonia -given antibiotic in ER, then not continued. -in retrospect patient did not have pneumonia 2. Probable CHF exacerbation, present on admission. Active. -Echo on 08/21/2016 showed mild-moderate LVH, EF 50-55%, grade 2 diastolic dysfunction. -diuresed a bit with the lasix, CXR no change -repeat echo pending, Cardiology will see 3.Acute NSTEMI, present on admission, active -Pt w/hx of prior NSTEMI, CAD s/p catheterization in 2007. -Continue home statin, aspirin, plavix, lipitor, IV Heparin -Cardiology will see 4. Acute on chronic kidney injury, present on admission. Active. 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 -creatinine worse today, 4.36 -discussed with nephrology who will see patient and advise, concern also is possible cardiac cath 5. Chronic diabetes mellitus type 2, insulin-using, present on admission. Active -Last A1c 7.3 on 08/21/16. Serum glucose on admission 122 -Home insulin regimen: Insulin Glargine 40 UNITS SQ AM; Humalog 12-22 unitics bid AC -Lantus 8 now then 45 q AM and Humalog 12-22 units AC tid patient to pick own dose 6. Chronic Hypertension, present on admission. Active. -BP on admission, 150s-170s/70s-90s. -Continue home dosing amlodipine, metoprolol -Lasix as above. 7. Chronic hyperlipidemia, present on admission. Presumed stable. -Continue home statin. - Acetaminophen as needed for mild pain/fever/headache - Bowel regimen as needed - Antiemetic as needed Patient is admitted under inpatient status with expected length of stay greater than 2 midnights due to severity of presenting symptoms, risk of adverse event, and complexity of treatment plan. VTE Prophylaxis: Sub-Q Heparin (Unfractionated) VTE Mechanical Devices: Intermittant Pneumatic CD Resuscitation Status: CPR: Attempt Resuscitation Julia Melo MD Jan 28, 2017 09:28 Julia Melo MD Jan 28, 2017 09:28
--- NOTE | 2017-01-28 10:55 | PCM.CHPMED ---
Subjective Date of Service: Jan 28, 2017 Provider requesting consult: Julia Melo MD Primary Physician: Admitting Physician: Mary Smith DO Primary Care Physician: Aaron Woods MD Attending Physician: Mary Smith DO Admit Status: From the Emergency Department Chief Complaint: Chief Complaint: shortness of breath and chest pressure History of Present Illness: Nephrology Consultation Note 61-year-old male with past medical history remarkable for chronic kidney disease stage [address] Ghotra, coronary artery disease and diastolic CHF followed by Dr. Friend, presents with 2 weeks of worsening shortness of breath culminating in severe dyspnea on exertion and chest pressure at 2 AM December 27. The patient states that he got up to go to the restroom at 2 AM and felt significant chest pressure with severe shortness of breath at which point he called his sister and EMS. The patient states that he was seen by his primary care physician a few days prior and was checked out without issue other than mild hypertension. The patient denies fever or chills, chronic cough, pain on inspiration or worsening leg swelling. The patient states that he does not regularly check his legs for swelling though. The patient has loss to toes on his right foot due to infections associated with his diabetes. The patient actually had a kidney biopsy done at [facility] by Dr. Ghotra but he is unsure of the results at this time. The patient states at that time Dr. Ghotra discontinued losartan and decreased his daily Lasix pill and increased his cholesterol pill. The patient admits that he seems to respond very well to Lasix and produces a lot of urine after being given this medication. The patient was on losartan which was stopped due to hyperkalemia. The patient has been a type two diabetic since college in the 1970s and states that he has had retinopathy and neuropathy. The patient was scheduled to see his front sight attacher Dr. Friend as an outpatient tomorrow. Review of Systems: A comprehensive review of systems was obtained and all are negative except for what is included in the history of present illness. 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 Coronary artery disease s/p catheterization in 2007 Diabetes mellitus type 2 w/retinopathy, neuropathy, and nephropathy Hypertension Hyperlipidemia NSTEMI Obesity diastolic CHF Obstructive Sleep Apnea Hx Diabetes: YesBedside Blood Glucose: 171 Surgical History Coronary artery catheterization in 2008 without PCI Kidney biopsy in 2016 at [facility] records requested Home Medications Amlodipine 5 MG PO BID Aspirin 81 MG PO DAILY Atorvastatin 40 MG PO HS Calcitriol 0.5 MCG PO DAILY Cholecalciferol 2,000 UNIT PO DAILY Clopidogrel 75 MG PO DAILY Furosemide 20 MG PO DAILY Insulin Glargine 45 UNITS SQ HS Insulin Lispro 18-22 units SQ BIDWM Metoprolol Tartrate 50 MG PO BID Allergies: Coded Allergies: lisinopril (Verified Adverse Reaction, Unknown, cough, 01/27/17) Family History Family History Several with DM2 Sister with breast cancer in remission Social History Hx Alcohol Use: Yes (socially)Hx Substance Use: NoHx Tobacco Use: No Smoking Status: Former Smoker Living Arrangement: with Family Exam Vital Signs Vital Sign - Last Date Time Temp Pulse Resp B/P Pulse Ox O2 Delivery O2 Flow Rate FiO2 01/28/17 10:42 73 01/28/17 09:26 20 132/117 86 Room Air 01/28/17 06:52 36.6 01/27/17 17:52 4.00 Intake and Output 01/27/17 01/27/17 01/28/17 Cumulative From/Thru 15:00 23:00 07:00 01/27/17 03:11 - 01/28/17 06:44 Intake Total 1293 ml 243 ml 1536 ml Output Total 2225 ml 2225 ml Balance -932 ml 243 ml -689 ml Intake Oral 1293 ml 1293 ml IV Total 243 ml 243 ml Output Urine Total 2225 ml 2225 ml # Bowel Movements 0 0 Additional Information: General: Well-developed, well-nourished, in no acute distress, appropriately interactive Eyes: Pupils equal round and reactive to light, anicteric sclera, noninjected conjunctiva HEENT: Normocephalic, atraumatic. Moist mucous membranes without central cyanosis,. Oropharynx free of erythema and cobble stoning Neck: Supple, short and thick neck No jugular venous distension. No bruits. No lymphadenopathy or thyromegaly. Cardiovascular: Distant heart sounds noted but Regular rate and rhythm with no murmurs, rubs, or gallops appreciated Pulmonary: Diminished breath sounds right worse than left at the bases bilaterally with crackles noted worse on the left base than the right, no wheezes, no use of accessory muscles. Abdomen: Bowel tones present. Soft, nontender, nondistended. No hepatosplenomegaly or masses appreciated. Extremities: Bilateral pitting edema above the knee, chronic skin changes, no clubbing, cyanosis, first and second digits amputated on the right lower extremity Skin: Minor venous stasis changes noted in the left lower extremity with darkening and mild induration noted. Warm and dry; no rash, ulcers, or subcutaneous nodules appreciated. Neurological: Cranial nerves grossly intact. Normal muscle strength, tone, and bulk. Reflexes, coordination, and sensory function within normal limits. No known gait impairment. Psychiatric: Normal mood and affect. Alert and oriented to person, place, and time. Lab and Diagnostics Result Diagram: 01/28/1762401/28/17 06 X-Rays, CTs and MRIs X-RAY CHEST ONE VIEW, PORTABLE IMPRESSION: 1. Left lower lobe and possibly right lower lobe pneumonia Dictated by: George Garcia M.D. on 01/27/2017 at 8:20 Approved by: George Garcia M.D. on 01/27/2017 at 8:22 X-RAY CHEST ONE VIEW, PORTABLE IMPRESSION: Bilateral lower lobe pneumonia. Small bilateral parapneumonic effusions. Dictated by: George Garcia M.D. on 01/28/2017 at 9:24 Approved by: George Garcia M.D. on 01/28/2017 at 9:25 12-lead ECG Sinus rhythm Borderline prolonged PA interval Biphasic P waves in V1 and V2 consistent with Left atrial enlargement Borderline Right axis deviation Nonspecific T abnormalities, lateral leads - terminally positive biphasic T waves in precordial lateral leads V5 and V6 mildly in V4 Additional Diagnostics: Echocardiogram ordered and pending Assessment & Plan Assessment 61-year-old male with past medical history remarkable for chronic kidney disease stage 4 and coronary artery disease and diastolic CHF presents with 2 weeks of worsening shortness of breath culminating in severe dyspnea on exertion and chest pressure at 2 AM December 27. Hospital Day 2 1. Likely Acute Kidney Injury on Chronic Kidney Disease, present on admission, under evaluation - Patient records indicate CKD is Stage 4 with last CMP preformed by his warp dresser Dr. 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 Possible Non-ST Segment Elevation Myocardial Infarction, present on admission - Troponins continue to rise now up to 1.5 which in not consistent with chronic troponin leak of CKD - nonspecific biphasic Twaves in precordial leads V4-V6 can indicate ischemia - cardiology consulted - if the patient requires a cardiac catheterization please limit the contrast volume given and please use isotonic contrast - Patient is already on a heparin drip, as well as aspirin, clopidogrel, atorvastatin, and metoprolol - nephrology service will defer to cardiology if a catheterization procedure is required 3. acute exacerbation of chronic diastolic congestive heart failure (HFpEF), present on admission - Patient is clinically mildly hypervolemic currently - patient has already received two doses of Lasix 40mg - Hold further diuretics given the likely possibility of cardiac catheterization 4. Diabetes Mellitus type 2, present on admission, chronic - continue patient's regular home insulin therapy including Lantus and Lispro 5. Obstructive Sleep Apnea, present on admission, chronic - continue CPAP at night Thank you for this very interesting consult. The Nephrology service will be available to coordinate care with the Cardiology team. Patient was seen and examined. Agreed with Dr. Goodman' assessment and plan as outlined. Thank you for the consultation. Problems: Pain Evaluation: Adequate Pain Control VTE Prophylaxis Indicated: Meets Criteria for Anticoag Therapy VTE Prophylaxis: Sub-Q Heparin (Unfractionated) VTE Mechanical Devices: Intermittant Pneumatic CD Resuscitation Status: CPR: Attempt Resuscitation Rashaad Goodman DO Jan 28, 2017 10:55 Estela Nichols MD Jan 29, 2017 08:46
[2017-01-28] MEDS: Insulin GLARgine 100 Unit/mL Syringe SUBQ SCH (12:15)
[2017-01-28] MEDS ORDERED: Furosemide 10 mg/mL 4 mL Inj IVPUSH ONE (14:10)
--- NOTE | 2017-01-28 14:43 | PCM.CHPCAR ---
Consult Subjective Date of service Jan 28, 2017 Date of admit Jan 27, 2017 at 05:00 Provider Requesting Consult Requesting Provider: Julia Melo MD Primary Care Physician Primary Care Physician: Aaron Woods MD Chief Complaint NSTEMI, heart failure History of Present Illness 61 yo M h/o diabetes, HTN, stage 4 CKD, and CAD admitted with NSTEMI. Patient states that he is relatively active at home at his baseline, including doing yard work. Over the past 2 weeks, patient started having chest pain and shortness of breath with exertion. This has progressively gotten worse to the point that she cannot even get out of bed. He came to [facility] emergency room for evaluation and management. Yesterday, he received IV furosemide 40 mg once and had a reasonable urine for about a liter. He felt a little better. Today, his dyspnea has gotten progressively worse again. His diuretics were stopped due to slight increase in his creatinine. Patient's other symptoms include lightheadedness with this chest discomfort, fatigue, and occasional nausea. Denies palpitations, syncope, vomiting, fevers , or chills. Review of Systems Review of Systems Per history of present illness and otherwise unremarkable PMH Past Medical History # CAD: Cath 2007 showed diffuse CAD including 70% stenosis of the proximal LCx, 70% stenosis of the OM2, and 50% stenosis of the OM3, 50% stenosis of the mid to distal LAD, and 70% stenosis of the small distal RCA. # HTN # Diabetes # Stage 4 CKD: not on HD Bedside Blood Glucose: 129 Scheduled Amlodipine (Amlodipine) 5 Mg Tablet 5 MG PO BID (Reported) Aspirin (Aspirin) 81 Mg Tablet 81 MG PO DAILY (Reported) Atorvastatin (Lipitor) 40 Mg Tablet 40 MG PO HS (Reported) Calcitriol (Rocaltrol) 0.25 Mcg Capsule 0.5 MCG PO DAILY (Reported) Cholecalciferol (Vitamin D3) (Vitamin D3) 2,000 Unit Capsule 2,000 UNIT PO DAILY (Reported) Clopidogrel (Clopidogrel) 75 Mg Tablet 75 MG PO DAILY Furosemide (Lasix) 40 Mg Tablet 20 MG PO DAILY (Reported) Insulin Glargine (Lantus U100 Solostar Insulin Pen) 100 Unit/1 Ml Insuln.pen 45 UNITS SQ HS (Reported) Insulin Lispro (HumaLOG U100 Insulin Pen) 100 Unit/1 Ml Insuln.pen SQ BIDWM ( Reported) 18-22 units subcutaneous route two times a day with meals for diabetes Metoprolol Tartrate (Metoprolol Tartrate) 25 Mg Tablet 50 MG PO BID (Reported) Discontinued Medications Simvastatin (Simvastatin) 40 Mg Tablet 40 MG PO DAILY (Reported) Current Inpatient Medications Current Medications Heparin Sodium (Porcine) 5,000 unit Q8 SUBQ Last administered on 01/27/17 16:59 ; Admin Dose 5,000 UNIT; Start 01/27/17 at 08:30; Stop 01/27/17 at 17:04; Status DC Al Hydrox/Mg Hydrox/Simethicone 30 ml Q6H PRN PO; Start 01/27/17 at 04:30 Ondansetron HCl 4 to 8 mg Q4H PRN IVPUSH; Start 01/27/17 at 04:30 Senna 17.2 mg BID PRN PO; Start 01/27/17 at 04:30 Polyethylene Glycol 17 gm DAILY PRN PO; Start 01/27/17 at 04:30 Acetaminophen 650 mg Q4H PRN PO; Start 01/27/17 at 04:30 Furosemide 40 mg DAILY IVPUSH Last administered on 01/28/17 09:21; Admin Dose 40 MG; Start 01/27/17 at 08:30 Insulin Glargine 45 unit MORNING SUBQ Last administered on 01/28/17 12:15; Admin Dose 45 UNIT; Start 01/28/17 at 08:30 Insulin Human Lispro patient to pick own dose TIDAC PRN SUBQ; Start 01/27/17 at 13:45 Amlodipine Besylate 5 mg BID PO Last administered on 01/28/17 09:21; Admin Dose 5 MG; Start 01/27/17 at 20:30 Aspirin 81 mg DAILY PO Last administered on 01/28/17 09:21; Admin Dose 81 MG; Start 01/28/17 at 08:30 Atorvastatin Calcium 40 mg HS PO Last administered on 01/27/17 19:48; Admin Dose 40 MG; Start 01/27/17 at 21:00 Calcitriol 0.5 mcg DAILY PO Last administered on 01/28/17 09:21; Admin Dose 0.5 MCG; Start 01/28/17 at 08:30 Clopidogrel Bisulfate 75 mg DAILY PO Last administered on 01/28/17 09:21; Admin Dose 75 MG; Start 01/28/17 at 08:30 Metoprolol Tartrate 50 mg BID PO Last administered on 01/28/17 09:21; Admin Dose 50 MG; Start 01/27/17 at 20:30 Cholecalciferol 2,000 unit DAILY PO Last administered on 01/28/17 09:21; Admin Dose 2,000 UNIT; Start 01/28/17 at 08:30 Heparin Sodium (Porcine) Per Protocol for a... PRN PRN IVPUSH Last administered on 01/28/17 12:24; Admin Dose 1,000 UNIT; Start 01/27/17 at 17:00 Nitroglycerin 0.4 mg Q5MIN PRN SL; Start 01/27/17 at 18:30 Allergies: Coded Allergies: lisinopril (Verified Adverse Reaction, Unknown, cough, 01/27/17) Family History Family History Dad had OK in his 40s and from HF and smoking related pulmonary issues Social History Hx Alcohol Use: Yes (socially)Hx Substance Use: NoHx Tobacco Use: No Smoking Status: Former Smoker Living Arrangement: with Family Exam Vital Signs Vital Sign - Last Date Time Temp Pulse Resp B/P Pulse Ox O2 Delivery O2 Flow Rate FiO2 01/28/17 12:48 37.0 70 22 136/79 94 Room Air 01/27/17 17:52 4.00 Intake and Output 01/27/17 01/27/17 01/28/17 Cumulative From/Thru 15:00 23:00 07:00 01/27/17 03:11 - 01/28/17 06:44 Intake Total 1293 ml 243 ml 1536 ml Output Total 2225 ml 2225 ml Balance -932 ml 243 ml -689 ml Intake Oral 1293 ml 1293 ml IV Total 243 ml 243 ml Output Urine Total 2225 ml 2225 ml # Bowel Movements 0 0 Objective General appearance: in mild respiratory distress, well-nourished, pleasant, cooperative HEET: Normocephalic atraumatic, no scleral icterus, tongue midline, mucous membranes moist Neck: supple, no carotid bruits Cardiovascular: RRR, normal S1 and normal S2, no murmurs/ rubs/gallops, PMI nondisplaced, no JVD, 1+ peripheral edema Respiratory: poor aeration, speaking in 4 word sentences, diffuse rhonchi, coarse diffusely, tight Abdomen: Soft, nontender, nondistended, + bowel sounds Neuro: Alert, no facial droop, tongue midline, no gross motor deficits Psych: appropriate affect Skin: no rashes on face, neck, and lower extremities Lab and Diagnostics Labs Troponin 0.073 -> 0.24 -> 0.42 -> 0.35 -> 1.54 Result Diagram: 01/28/1762401/28/17624 X-Rays, CTs and MRIs CXR on admission shows interstitial and pulmonary edema Assessment & Plan Assessment 61 yo M h/o diabetes, HTN, stage 4 CKD, and CAD admitted with NSTEMI # NSTEMI: Patient has known coronary artery disease and is presenting with typical symptoms of angina and dyspnea for heart failure related to ischemic cardiomyopathy. Troponin rising and now at 1.54. Cath 2007 showed diffuse CAD including 70% stenosis of the proximal LCx, 70% stenosis of the OM2, and 50% stenosis of the OM3, 50% stenosis of the mid to distal LAD, and 70% stenosis of the small distal RCA. I spent significant time the patient about his condition and he prefers to undergo invasive procedures to make him more comfortable. I also spoke with Dr. Bhakta (primary team) and Dr. Friend (primary economic research assistant) who recommended that we diuresed the patient so that he can lay flat for that patient undergo coronary angiography. Nephrology is aware and is willing to start the patient on dialysis which will likely happen sooner especially if we proceed with coronary angiography. Plan as below: - Continue aspirin 81mg daily - Continue heparin gtt - Continue atorvastatin 40mg qhs - Continue amlodipine 5mg bid - Echo pending - Once patient able to lay flat, he can proceed with coronary angiography with Dr. Friend # HF, acute: from ischemic cardiomyopathy. EF unknown at this time but was low normal last year. He is NYHA class IV. Plan: - Echo pending - Diurese with IV furosemide to improve his dyspnea. # HTN: well controlled. # Diabetes: on insulin. Defer to primary team. # Stage 4 CKD: not on HD yet. Etiology is diabetic and hypertensive nephropathy. Defer to nephrology for management but suspect that the patient will need dialysis soon. Thank you for the interesting consultation. Cardiology will continue to follow. Pain Evaluation: Adequate Pain Control VTE Prophylaxis Indicated: Meets Criteria for Anticoag Therapy VTE Prophylaxis: Sub-Q Heparin (Unfractionated) VTE Mechanical Devices: Intermittant Pneumatic CD Resuscitation Status: CPR: Attempt Resuscitation Narcisa Moore MD Jan 28, 2017 14:43
--- NOTE | 2017-01-28 16:17 | NUR ---
Shift: VSS, tele SR 60s-80s, RA O2 sats 86%, pt reminded to keep oxygen on, O2 sats 94% on 4L NC. Pt has had two BMs this shift, guaiac sent, up to BSC with SBA. Heparin gtt continues infusing, see flowsheet for details, echo completed, report in chart. Lantus given late r/t delivery delay, blood sugars WNL. Pt turns independently in bed, care ongoing.
[2017-01-28] MEDS: Heparin 25K Unit/500mL 0.45 NS 25,000 UNIT in IV Premix 1 EACH IV SCH (17:37)
[2017-01-29] VITALS (7 sets, daily range): BP systolic 103–134; BP diastolic 61–88; PULSE 58–75; RESP 12–20; O2SAT 92–93
--- NOTE | 2017-01-29 01:28 | NUR ---
Resp Pt had required 2-3 L oxygen via NC earlier this evening. CPAP currently in place. No oxygen bleed. Saturations are 95% Will cont to monitor
--- NOTE | 2017-01-29 04:46 | NUR ---
Blood Sugar Blood sugar is 86. Pt is asymptomatic. Given cranberry juice. Plan to retake in one hour
[2017-01-29 06:54] LABS: BASOPHILS % (AUTO) 0.1 % (0-3); EOSINOPHILS % (AUTO) 6.9 % (0-5); MONOCYTES % (AUTO) 7.3 % (4-12); Mean Corpuscular Hemoglobin 28.3 pg (27.0-35.0); Mean Corpuscular Volume 85.6 fL (81-100); Platelet Count 218 bil/L (150-400)
[2017-01-29] MEDS: Furosemide 10 mg/mL 4 mL Inj IVPUSH SCH (08:16)
[2017-01-29] MEDS: Insulin GLARgine 100 Unit/mL Syringe SUBQ SCH (08:17)
--- NOTE | 2017-01-29 08:23 | PCM.PNNEPH ---
Subjective Date of Service Jan 29, 2017 Subjective The patient today says that his legs seem significantly improved from yesterday. The patient states that his breathing is better today but admits that yesterday after he was seen by nephrology he became acutely short of breath in the afternoon and was given a second dose of Lasix. The patient is unsure if he will have a cardiac catheterization today. The patient understands the plan will be for cardiology to dictate if he needs to have a cardiac catheterization and the nephrology service will respond appropriately to his kidney function after any cardiac procedures. Exam Vital Signs Vital Sign - Last Date Time Temp Pulse Resp B/P Pulse Ox O2 Delivery O2 Flow Rate FiO2 01/29/17 04:39 36.8 68 18 133/88 92 Room Air 01/27/17 17:52 4.00 Intake and Output 01/28/17 01/28/17 01/29/17 Cumulative From/Thru 15:00 23:00 07:00 01/27/17 03:11 - 01/29/17 06:11 Intake Total 1025 ml 1398 ml 650 ml 4609 ml Output Total 1400 ml 1475 ml 1025 ml 6125 ml Balance -375 ml -77 ml -375 ml -1516 ml Intake Oral 1025 ml 1140 ml 400 ml 3858 ml IV Total 258 ml 250 ml 751 ml Output Urine Total 1400 ml 1475 ml 1025 ml 6125 ml # Bowel Movements 3 1 4 Exam General: Well-developed, well-nourished, in no acute distress, appropriately interactive Eyes: Pupils equal round and reactive to light, anicteric sclera, noninjected conjunctiva HEENT: Normocephalic, atraumatic. Moist mucous membranes without central cyanosis,. Oropharynx free of erythema and cobble stoning Neck: Supple, short and thick neck No jugular venous distension. No bruits. No lymphadenopathy or thyromegaly. Cardiovascular: Distant heart sounds noted but Regular rate and rhythm with no murmurs, rubs, or gallops appreciated Pulmonary: Diminished breath sounds right worse than left at the bases bilaterally with crackles noted worse on the left base than the right, no wheezes, no use of accessory muscles. Abdomen: Bowel tones present. Soft, nontender, nondistended. No hepatosplenomegaly or masses appreciated. Extremities: improved mild bilateral pitting edema below the knee, chronic skin changes, no clubbing, cyanosis, first and second digits amputated on the right lower extremity Skin: Minor venous stasis changes noted in the left lower extremity with darkening and mild induration noted. Warm and dry; no rash, ulcers, or subcutaneous nodules appreciated. Neurological: Cranial nerves grossly intact. Normal muscle strength, tone, and bulk. Reflexes, coordination, and sensory function within normal limits. No known gait impairment. Psychiatric: Normal mood and affect. Alert and oriented to person, place, and time. IVs and Medications Medications Reviewed: Medications were reviewed in detail Lab and Diagnostics Result Diagram: 01/29/17 0635 01/28/17 0625 Microbiology Blood cultures- negative to date Viral Nasal PCR negative X-Rays, CTs and MRIs X-RAY CHEST ONE VIEW, PORTABLE ([id number]) IMPRESSION: Bilateral lower lobe pneumonia. Small bilateral parapneumonic effusions. Dictated by: George Garcia M.D. on 01/28/2017 at 9:24 Approved by: George Garcia M.D. on 01/28/2017 at 9:25 Cardiac Echo Impressions Echocardiogram Report Interpretation Summary The left ventricle is normal in size. Left ventricular systolic function is borderline reduced. The ejection fraction is estimated to be 50-55%. There has been no significant change since the previous study. There is hypokinesis along the basal to mid inferior wall and akinesis along the basal to mid anterolateral and inferolateral wall. LV wall motion has not changed significantly. Assessment of diastolic parameters indicates a restrictive filling pattern of the left ventricle consistent with significantly elevated filling pressures. Diastolic function has decreased since prior echo study. The right ventricle is normal size. Right ventricular systolic function is borderline reduced. Pulmonary artery pressures cannot be estimated because of the lack of a measurable TR jet velocity. The left atrium is moderately dilated. Right atrial size is normal. There is no significant valvular heart disease. The aortic root is normal size. There are moderate-sized bilateral pleural effusions noted. Reading Physician:GABRIELA Hernández Impression 61-year-old male with past medical history remarkable for chronic kidney disease stage 4 and coronary artery disease and diastolic CHF presents with 2 weeks of worsening shortness of breath culminating in severe dyspnea on exertion and chest pressure at 2 AM December 27. 1. Likely Acute Kidney Injury on Chronic Kidney Disease, present on admission, under evaluation stable 2. Possible Non-ST Segment Elevation Myocardial Infarction, present on admission 3. acute exacerbation of chronic diastolic congestive heart failure (HFpEF), present on admission 4. Diabetes Mellitus type 2, present on admission, chronic 5. Obstructive Sleep Apnea, present on admission, chronic Plan: 1. Likely Acute Kidney Injury on Chronic Kidney Disease, present on admission, under evaluation - Patient records indicate CKD is Stage 4 with last CMP preformed by his food service lead Dr. 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, IgA nephropathy - DAJUAN may be likely cardiorenal due to poor cardiac output with possible acute NSTEMI/acute CHF exacerbation - Patient has VERY mild hypervolemia right now with mild peripheral edema, moderate bilateral pleural effusions with will not likely respond dramatically to aggressive diuresis, and no JVD - HOLD Diuretics until cardiology decides how to proceed with their CAD evaluation, this patient will need to be well hydrated to avoid significant contrast induced nephropathy, and the bilateral pleural effusions which are causing some dyspnea will not dramatically respond to diuretics even if over diuresed. Pleural effusions will need time to resolve or require thoracentesis. 2. Possible Non-ST Segment Elevation Myocardial Infarction, present on admission - Troponins continue to rise now up to 1.5 which in not consistent with chronic troponin leak of CKD - nonspecific biphasic Twaves in precordial leads V4-V6 can indicate ischemia - cardiology consulted - if the patient requires a cardiac catheterization please limit the contrast volume given and please use isotonic contrast - Patient is already on a heparin drip, as well as aspirin, clopidogrel, atorvastatin, and metoprolol - nephrology service will defer to cardiology if a catheterization procedure is required 3. acute exacerbation of chronic diastolic congestive heart failure (HFpEF), present on admission - Patient is clinically Very mildly hypervolemic currently not accounting for the moderate sized pleural effusions which respond slowly to diuretics - patient has already received several doses of Lasix over the course of this hospitalization - Echo shows worsening diastolic dysfunction with intact EF - Hold further diuretics given the likely possibility of cardiac catheterization 4. Diabetes Mellitus type 2, present on admission, chronic - continue patient's regular home insulin therapy including Lantus and Lispro 5. Obstructive Sleep Apnea, present on admission, chronic - continue CPAP at night Thank you for this very interesting consult. The Nephrology service will be available to coordinate care with the Cardiology team. Rashaad Goodman DO Jan 29, 2017 08:23
[2017-01-29 08:29] LABS: TROPONIN T 0.829 ug/L (0.0-0.011)
--- NOTE | 2017-01-29 09:07 | DRSVH ---
[facility] [address] [place] [address] Echocardiogram Report Name: NAZIA STEVEN LStudy Date : 01/28/2017 Height: 67 in Hospital Exam Location: [facility] Weight: 210 lb Gender: Male BSA: 2.1 m2 : 1955 Age: 61 yrs BP: 151/88 mmHg Reason For Study: SHORTNESS OF BREATH, EDEMA, CHF Ordering Physician: HOSPITALIST [facility] Performed By: Chance Quinn Referring Physician: Lianet SERRATO Interpretation Summary The left ventricle is normal in size. Left ventricular systolic function is borderline reduced. The ejection fraction is estimated to be 50-55%. There has been no significant change since the previous study. There is hypokinesis along the basal to mid inferior wall and akinesis along the basal to mid anterolateral and inferolateral wall. LV wall motion has not changed significantly. Assessment of diastolic parameters indicates a restrictive filling pattern of the left ventricle consistent with significantly elevated filling pressures. Diastolic function has decreased since prior echo study. The right ventricle is normal size. Right ventricular systolic function is borderline reduced. Pulmonary artery pressures cannot be estimated because of the lack of a measurable TR jet velocity. The left atrium is moderately dilated. Right atrial size is normal. There is no significant valvular heart disease. The aortic root is normal size. There are moderate-sized bilateral pleural effusions noted. Procedure: A two-dimensional transthoracic echocardiogram with color flow and Doppler was performed. The study quality was technically adequate. Comparison is made with the echocardiogram of 08/21/16. A contrast injection of Definity was performed to improve assessment of LV function. The patient was in normal sinus rhythm during the exam. Left Ventricle: The left ventricle is normal in size. There is mild asymmetric left ventricular hypertrophy. Left ventricular systolic function is borderline reduced. The ejection fraction is estimated to be 50-55%. There has been no significant change since the previous study. There is hypokinesis along the basal to mid inferior wall and akinesis along the basal to mid anterolateral and inferolateral wall. LV wall motion has not changed significantly. Assessment of diastolic parameters indicates a restrictive filling pattern of the left ventricle consistent with significantly elevated filling pressures. Right Ventricle: The right ventricle is normal size. Right ventricular systolic function is borderline reduced. Atria: The left atrium is moderately dilated. Right atrial size is normal. The interatrial septum is intact with no evidence for an atrial septal defect. Mitral Valve: The mitral valve is normal in structure and function. There is mild mitral annular calcification. There is trace mitral regurgitation. Aortic Valve: The aortic valve is trileaflet. The aortic valve is mildly calcified. The aortic valve opens well. No aortic regurgitation is present. Tricuspid Valve: The tricuspid valve is normal in structure and function. There is trace tricuspid regurgitation. Pulmonary artery pressures cannot be estimated because of the lack of a measurable TR jet velocity. Pulmonic Valve: The pulmonic valve is normal in structure and function. There is trace pulmonic regurgitation. There is no significant valvular heart disease. Great Vessels: The aortic root is normal size. The dimensions of the ascending aorta are normal. The pulmonary artery is normal size. The IVC is dilated (diameter is greater than 2.1 cm) yet it collapses greater than 50% with a sniff. This suggests a right atrial pressure of 8 mm Hg. Pericardium/ Pleura There is no pericardial effusion. There are moderate- sized bilateral pleural effusions noted. MMode/2D Measurements & Calculations LVIDd: 4.8 cm LA dimension: 4.1 cm RA long axis: 5.2 cm LVOT diam LVIDs: 3.5 cm FS: 27.5 % LA A2 area: 25.2 cm RA area: 18.9 cm Ao root diam EPSS: 0.77 cm LA A4 area: 26.0 cm RA vol: 58.3 ml IVSd: 1.4 cm LA length (vol): 6.5 cm RA : 28.2 ml/m2 Aortic Jxn LVPWd: 1.0 cm LA vol: 85.7 ml LA vol index asc Aorta Diam: 2.8 cm IVC diam: 2.6 cm EDV(MOD-sp2) LV mota. diameter/BSA LV sys. diameter/BSA RVD1 (basal) : 115.3 ml (cm/m^2): 2.3 (cm/m^2): 1.7 : 4.1 cm RVD2 (mid) : 3.5 cm Doppler Measurements & Calculations Ao V2 max MV E max andrea MV E/A: 4.1 PA V2 max : 115.1 cm/sec : 126.3 cm/sec Med Peak E' Andrea : 59.4 cm/sec Ao max P.3 mmHg MV A max andrea PA mean PG Ao mean P.1 mmHg : 30.6 cm/sec E/E' med: 28.7 : 0.96 mmHg LVOT Max Andrea Lat Peak E' Andrea PA Accel Time : 94.4 cm/sec MVA(VTI): 2.9 cm2 : 0.08 sec E/E' lat: 16.1 BAR(I,D): 2.5 cm E/e' average sev ratio: 0.73 Pulm A Revs Dur MV A dur : 0.08 sec MV V2 mean Ao V2 mean LV V1 max PG PA V2 mean : 52.8 cm/sec : 85.1 cm/sec : 47.8 cm/sec MV mean P.7 mmHg Ao V2 VTI: 23.6 cm LV V1 VTI PA pr(Accel) MV V2 VTI: 19.9 cm : 17.1 cm : 41.6 mmHg MV dec time: 0.13 secAVA(V,D): 2.8 cm2 BAR indexed to BSA Pulm A Revs Dur - MV A (cm^2/m^2): 1.2 Dur: 0.01 msec Reading Physician:GABRIELA
--- NOTE | 2017-01-29 11:25 | PCM.PNMED ---
Subjective Date of Service Jan 29, 2017 Subjective Overall feeling better. No CP. Off O2 now. I discussed patient with nephrology today. No new problems. Exam Vital Signs Vital Sign - Last Date Time Temp Pulse Resp B/P Pulse Ox O2 Delivery O2 Flow Rate FiO2 01/29/17 10:26 36.6 67 20 103/61 92 Room Air 01/27/17 17:52 4.00 Intake and Output 01/28/17 01/28/17 01/29/17 Cumulative From/Thru 15:00 23:00 07:00 01/27/17 03:11 - 01/29/17 06:11 Intake Total 1025 ml 1398 ml 650 ml 4609 ml Output Total 1400 ml 1475 ml 1025 ml 6125 ml Balance -375 ml -77 ml -375 ml -1516 ml Intake Oral 1025 ml 1140 ml 400 ml 3858 ml IV Total 258 ml 250 ml 751 ml Output Urine Total 1400 ml 1475 ml 1025 ml 6125 ml # Bowel Movements 3 1 4 Exam Eyes; jacques, eom intact ENMT; good hydration, no lesions CV; S1S2 present with soft systolic murmur, no obvious JVD Resp; decreased breath sounds bases but less crackles and rales in bases GI: soft, non-acute benign, non tender Skin; no rashes, dry Neuro; 2-12 intact no motor defects Lab and Diagnostics Result Diagram: 01/29/1735 01/29/17634 Microbiology Blood cultures- negative to date Viral Nasal PCR negative X-Rays, CTs and MRIs X-RAY CHEST ONE VIEW, PORTABLE ([id number]) IMPRESSION: Bilateral lower lobe pneumonia. Small bilateral parapneumonic effusions. Dictated by: George Garcia M.D. on 01/28/2017 at 9:24 Approved by: George Garcia M.D. on 01/28/2017 at 9:25 Assessment & Plan 61 y/o male with DM2 insulin-using, hypertension, hyperlipidemia, CAD s/p catheterization in 2007, and CKD stage 3 who presented to the ED via EMS c/o SOB and admitted for further evaluation and treatment of possible community pneumonia, CHF exacerbation and possible NSTEMI. 1. Possible community acquired pneumonia, present on admission. never had pneumonia -given antibiotic in ER, then not continued. -in retrospect patient did not have pneumonia 2. Probable CHF exacerbation secondary to diastolic dysfunction, present on admission. Active. -Echo on 08/21/2016 showed mild-moderate LVH, EF 50-55%, grade 2 diastolic dysfunction. -diuresed a bit with the lasix, CXR no change -echo show normal LV function but increased diastolic dysfunction 3.Acute NSTEMI, present on admission, active -Pt w/hx of prior NSTEMI, CAD s/p catheterization in 2007. -Continue home statin, aspirin, plavix, lipitor, IV Heparin -Cardiology deciding to possible do cath, talking with nephrology 4. Acute on chronic kidney injury, present on admission. Active. -base line creatinine runs 2 to 3 -Pt w/ CKD stage 3, [employer]- Dr. Rainey. -creatinine worse today, 4.36 -discussed with nephrology who will see patient and advise, concern also is possible cardiac cath 5. Chronic diabetes mellitus type 2, insulin-using, present on admission. Active -Last A1c 7.3 on 08/21/16. Serum glucose on admission 122 -Home insulin regimen: Insulin Glargine 40 UNITS SQ AM; Humalog 12-22 unitics bid AC -Lantus 8 now then 45 q AM and Humalog 12-22 units AC tid patient to pick own dose 6. Chronic Hypertension, present on admission. Active. -BP on admission, 150s-170s/70s-90s. -Continue home dosing amlodipine, metoprolol -Lasix as above. 7. Chronic hyperlipidemia, present on admission. Presumed stable. -Continue home statin. - Acetaminophen as needed for mild pain/fever/headache - Bowel regimen as needed - Antiemetic as needed Patient is admitted under inpatient status with expected length of stay greater than 2 midnights due to severity of presenting symptoms, risk of adverse event, and complexity of treatment plan. VTE Prophylaxis: Sub-Q Heparin (Unfractionated) VTE Mechanical Devices: Intermittant Pneumatic CD Resuscitation Status: CPR: Attempt Resuscitation Attending Statement 1. Possible community acquired pneumonia, present on admission. never had pneumonia -given antibiotic in ER, then not continued. -in retrospect patient did not have pneumonia 2. Probable CHF exacerbation, present on admission. Active. -Echo on 08/21/2016 showed mild-moderate LVH, EF 50-55%, grade 2 diastolic dysfunction. -diuresed a bit with the lasix, CXR no change 3.Acute NSTEMI, present on admission, active -Pt w/hx of prior NSTEMI, CAD s/p catheterization in 2007. -Continue home statin, aspirin, plavix, lipitor, IV Heparin -Cardiology will see 4. Acute on chronic kidney injury, present on admission. Active. -base line creatinine runs 2 to 3 -Pt w/ CKD stage 3, [employer]- Dr. Rainey. -creatinine worse today, 4.36 -discussed with nephrology who will see patient and advise, concern also is possible cardiac cath 5. Chronic diabetes mellitus type 2, insulin-using, present on admission. Active -Last A1c 7.3 on 08/21/16. Serum glucose on admission 122 -Home insulin regimen: Insulin Glargine 40 UNITS SQ AM; Humalog 12-22 unitics bid AC -Lantus 8 now then 45 q AM and Humalog 12-22 units AC tid patient to pick own dose 6. Chronic Hypertension, present on admission. Active. -BP on admission, 150s-170s/70s-90s. -Continue home dosing amlodipine, metoprolol -Lasix as above. 7. Chronic hyperlipidemia, present on admission. Presumed stable. -Continue home statin. - Acetaminophen as needed for mild pain/fever/headache - Bowel regimen as needed - Antiemetic as needed Patient is admitted under inpatient status with expected length of stay greater than 2 midnights due to severity of presenting symptoms, risk of adverse event, and complexity of treatment plan. VTE Prophylaxis: Sub-Q Heparin (Unfractionated) VTE Mechanical Devices: Intermittant Pneumatic CD Resuscitation Status: CPR: Attempt Resuscitation Julia Melo MD Jan 29, 2017 11:25
[2017-01-29] MEDS: Heparin 25K Unit/500mL 0.45 NS 25,000 UNIT in IV Premix 1 EACH IV SCH (14:20)
[2017-01-29] MEDS: Heparin 5,000 Unit/mL Inj IVPUSH PRN (16:08)
--- NOTE | 2017-01-29 17:11 | PCM.PNCARD ---
Subjective Date of service Jan 29, 2017 Chief Complaint NSTEMI, heart failure History of Present Illness 61 yo M h/o diabetes, HTN, stage 4 CKD, and CAD admitted with NSTEMI. Patient states that he is relatively active at home at his baseline, including doing yard work. Over the past 2 weeks, patient started having chest pain and shortness of breath with exertion. This has progressively gotten worse to the point that she cannot even get out of bed. He came to [facility] emergency room for evaluation and management. Yesterday, he received IV furosemide 40 mg once and had a reasonable urine for about a liter. He felt a little better. Today, his dyspnea has gotten progressively worse again. His diuretics were stopped due to slight increase in his creatinine. Patient's other symptoms include lightheadedness with this chest discomfort, fatigue, and occasional nausea. Denies palpitations, syncope, vomiting, fevers , or chills. Subjective: With IV diuresis, patient feels much better from breathing standpoint. He is no longer needing oxygen and can lay flat without any difficulty. PROBLEM LIST: # CAD: Cath 2007 showed diffuse CAD including 70% stenosis of the proximal LCx, 70% stenosis of the OM2, and 50% stenosis of the OM3, 50% stenosis of the mid to distal LAD, and 70% stenosis of the small distal RCA. # HTN # Diabetes # Stage 4 CKD: not on HD Exam Vital Signs Vital Sign - Last Date Time Temp Pulse Resp B/P Pulse Ox O2 Delivery O2 Flow Rate FiO2 01/29/17 13:49 36.7 64 18 117/66 92 Room Air 01/27/17 17:52 4.00 Intake and Output 01/28/17 01/28/17 01/29/17 Cumulative From/Thru 15:00 23:00 07:00 01/27/17 03:11 - 01/29/17 06:11 Intake Total 1025 ml 1398 ml 650 ml 4609 ml Output Total 1400 ml 1475 ml 1025 ml 6125 ml Balance -375 ml -77 ml -375 ml -1516 ml Intake Oral 1025 ml 1140 ml 400 ml 3858 ml IV Total 258 ml 250 ml 751 ml Output Urine Total 1400 ml 1475 ml 1025 ml 6125 ml # Bowel Movements 3 1 4 General appearance: NAD, well-nourished, pleasant, cooperative HEET: Normocephalic atraumatic, no scleral icterus, tongue midline, mucous membranes moist Neck: supple, no carotid bruits Cardiovascular: RRR, normal S1 and normal S2, no murmurs/ rubs/gallops, PMI nondisplaced, JVP +11cm H20, trace peripheral edema Respiratory: fair aeration, able to talk in complete sentences, diffuse rhonchi , coarse diffusely Abdomen: Soft, nontender, nondistended, + bowel sounds Neuro: Alert, no facial droop, tongue midline, no gross motor deficits Psych: appropriate affect Lab and Diagnostics Labs Troponin 0.073 -> 0.24 -> 0.42 -> 0.35 -> 1.54 -> 0.83 Result Diagram: 01/29/17 0635 01/29/1735 X-Rays, CTs and MRIs Echo 01/28/2017: The left ventricle is normal in size. Left ventricular systolic function is borderline reduced. The ejection fraction is estimated to be 50-55%. There has been no significant change since the previous study. There is hypokinesis along the basal to mid inferior wall and akinesis along the basal to mid anterolateral and inferolateral wall. LV wall motion has not changed significantly. Assessment of diastolic parameters indicates a restrictive filling pattern of the left ventricle consistent with significantly elevated filling pressures. Diastolic function has decreased since prior echo study. The right ventricle is normal size. Right ventricular systolic function is borderline reduced. Pulmonary artery pressures cannot be estimated because of the lack of a measurable TR jet velocity. The left atrium is moderately dilated. Right atrial size is normal. There is no significant valvular heart disease. The aortic root is normal size. There are moderate-sized bilateral pleural effusions noted. Assessment & Plan Assessment 61 yo M h/o diabetes, HTN, stage 4 CKD, and CAD admitted with NSTEMI # NSTEMI: Patient has known coronary artery disease and is presenting with typical symptoms of angina and dyspnea for heart failure related to ischemic cardiomyopathy. Troponin T peaked at 1.54 and now downtrending. Cath 2008 showed diffuse CAD including 70% stenosis of the proximal LCx, 70% stenosis of the OM2, and 50% stenosis of the OM3, 50% stenosis of the mid to distal LAD, and 70% stenosis of the small distal RCA. I spent significant time the patient about his condition and he prefers to undergo invasive procedures to make him more comfortable. I also spoke with Dr. Bhakta (primary team) and Dr. Friend ( primary audit manager) who recommended that we diuresed the patient so that he can lay flat for that patient undergo coronary angiography. Nephrology is aware and is willing to start the patient on dialysis which will likely happen sooner especially if we proceed with coronary angiography. Plan as below: - Continue aspirin 81mg daily - Continue heparin gtt - Continue atorvastatin 40mg qhs - Continue amlodipine 5mg bid - Coronary angiography with Dr. Friend on 01/31/2017 with the hope that Cr may improve in the next 24-48 hours # HF, acute: from ischemia and diastolic heart failure. Patient's dyspnea has improved significantly with IV diuresis. He is NYHA class III now. He remains hypervolemic but nephrology doesn't want to diurese him further to prevent DAJUAN. Plan: - Consider low dose IV furosemide tomorrow if BUN/Cr allow # HTN: well controlled. # Diabetes: on insulin. Defer to primary team. # Stage 4 CKD: not on HD yet. Etiology is diabetic and hypertensive nephropathy. Defer to nephrology for management but suspect that the patient will need dialysis soon. Thank you for the interesting consultation. Problems: Pain Evaluation: Adequate Pain Control VTE Prophylaxis: Sub-Q Heparin (Unfractionated) VTE Mechanical Devices: Intermittant Pneumatic CD Resuscitation Status: CPR: Attempt Resuscitation Narcisa Moore MD Jan 29, 2017 17:11
--- NOTE | 2017-01-29 17:13 | NUR ---
Heparin drip Pt has remained free from chest pain this shift. VS have remained stable. Continues to have heparin drip infusion. At start of shift, drip was infusing at 1225 units/hr. 0900 PTT 56.3, drip increased to 1250 unit/hr. PTT redrawn at 1500, with result 40.1. 3000 unit heparin bolus given, and rate increased to 1350 units/hr. Next PTT to be drawn at 2100.
[2017-01-30] VITALS (8 sets, daily range): BP systolic 110–153; BP diastolic 69–82; PULSE 48–72; RESP 18–24; O2SAT 93–97
--- NOTE | 2017-01-30 04:54 | NUR ---
Activity Pt independent to BSC. Pt denies chest pain. CPAP while sleeping. Heparin drip infusing at 1350 units/hour. Call light within reach, frequent rounding.
[2017-01-30] MEDS: Insulin GLARgine 100 Unit/mL Syringe SUBQ SCH (08:08)
[2017-01-30] MEDS: Heparin 25K Unit/500mL 0.45 NS 25,000 UNIT in IV Premix 1 EACH IV SCH (09:16)
--- NOTE | 2017-01-30 14:16 | NUR ---
Social Work: Readiness for d/c Data: Pt is on day 3 of hospitalization. EMR reviewed. Pt discussed in rounds. MD states that pt likely to d/c in 1-2 days. Cath scheduled for tomorrow per MD. No d/c planning needs anticipated at this time. HUMAN RESOURCES ASSOCIATE will continue to follow if needs arise. Assessment: Pt who is independent at baseline. Plan: Pt will d/c home via POV when medically stable, likely in 1-2 days per MD. No d/c planning needs anticipated at this time. HUMAN RESOURCES ASSOCIATE will continue to follow if needs arise. DALJIT Kaur
--- NOTE | 2017-01-30 16:01 | PCM.PNMED ---
Subjective Date of Service Jan 30, 2017 Subjective Clinically doing pretty well, more stable. Off O2, up for a few hours in chair , and ambulating around room with no further chest pain. Creatinine a bit better, not worse today. Plan is for cath in AM. Exam Vital Signs Vital Sign - Last Date Time Temp Pulse Resp B/P Pulse Ox O2 Delivery O2 Flow Rate FiO2 01/30/17 13:40 36.7 51 20 125/71 97 Room Air 01/27/17 17:52 4.00 Intake and Output 01/29/17 01/29/17 01/30/17 Cumulative From/Thru 15:00 23:00 07:00 01/27/17 03:11 - 01/30/17 06:37 Intake Total 1557 ml 591 ml 6757 ml Output Total 1075 ml 525 ml 7725 ml Balance 482 ml 66 ml -968 ml Intake Oral 1237 ml 250 ml 5345 ml IV Total 320 ml 341 ml 1412 ml Output Urine Total 1075 ml 525 ml 7725 ml # Bowel Movements 2 6 Exam Eyes; jacques, eom intact ENMT; good hydration, no lesions CV; S1S2 present with soft systolic murmur, no obvious JVD, 1+ edema Resp; decreased breath sounds bases, corse breath sound, no rales today GI: soft, non-acute benign, non tender Skin; no rashes, dry Neuro; 2-12 intact no motor defects Lab and Diagnostics Result Diagram: 01/29/17 0635 01/30/17 0548 Microbiology Blood cultures- negative to date Viral Nasal PCR negative X-Rays, CTs and MRIs X-RAY CHEST ONE VIEW, PORTABLE ([id number]) IMPRESSION: Bilateral lower lobe pneumonia. Small bilateral parapneumonic effusions. Dictated by: George Garcia M.D. on 01/28/2017 at 9:24 Approved by: George Garcia M.D. on 01/28/2017 at 9:25 Cardiac Echo Impressions Echocardiogram Report Interpretation Summary The left ventricle is normal in size. Left ventricular systolic function is borderline reduced. The ejection fraction is estimated to be 50-55%. There has been no significant change since the previous study. There is hypokinesis along the basal to mid inferior wall and akinesis along the basal to mid anterolateral and inferolateral wall. LV wall motion has not changed significantly. Assessment of diastolic parameters indicates a restrictive filling pattern of the left ventricle consistent with significantly elevated filling pressures. Diastolic function has decreased since prior echo study. The right ventricle is normal size. Right ventricular systolic function is borderline reduced. Pulmonary artery pressures cannot be estimated because of the lack of a measurable TR jet velocity. The left atrium is moderately dilated. Right atrial size is normal. There is no significant valvular heart disease. The aortic root is normal size. There are moderate-sized bilateral pleural effusions noted. Reading Physician:GABRIELA Assessment & Plan 61 y/o male with DM2 insulin-using, hypertension, hyperlipidemia, CAD s/p catheterization in 2007, and CKD stage 3 who presented to the ED via EMS c/o SOB and admitted for further evaluation and treatment of possible community pneumonia, CHF exacerbation and possible NSTEMI. 1. Acute CHF exacerbation secondary to diastolic dysfunction, present on admission. improving. -Echo on 08/21/2016 showed mild-moderate LVH, EF 50-55%, grade 2 diastolic dysfunction. -diuresed a bit with the lasix, CXR no change -echo show normal LV function but increased diastolic dysfunction -continue with current po lasix today 2.Acute NSTEMI, present on admission, improving -Pt w/hx of prior NSTEMI, CAD s/p catheterization in 2007. -Continue home statin, aspirin, plavix, lipitor, IV Heparin -tentative heart cath in am 3. Acute on chronic kidney injury, present on admission. Active. 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 -creatinine worse today, 4.36 -discussed with nephrology who will see patient and advise, concern also is possible cardiac cath 4. Chronic diabetes mellitus type 2, insulin-using, present on admission. Active -Last A1c 7.3 on 08/21/16. Serum glucose on admission 122 -Home insulin regimen: Insulin Glargine 40 UNITS SQ AM; Humalog 12-22 unitics bid AC -Lantus 8 now then 45 q AM and Humalog 12-22 units AC tid patient to pick own dose 5. Chronic Hypertension, present on admission. Active. -BP on admission, 150s-170s/70s-90s. -Continue home dosing amlodipine, metoprolol -Lasix as above. 6- Chronic hyperlipidemia, present on admission. Presumed stable. -Continue home statin. 8. Possible community acquired pneumonia, present on admission. never had pneumonia -given antibiotic in ER, then not continued. -in retrospect patient did not have pneumonia - Acetaminophen as needed for mild pain/fever/headache - Bowel regimen as needed - Antiemetic as needed Patient is admitted under inpatient status with expected length of stay greater than 2 midnights due to severity of presenting symptoms, risk of adverse event, and complexity of treatment plan. VTE Prophylaxis: Sub-Q Heparin (Unfractionated) VTE Mechanical Devices: Intermittant Pneumatic CD Resuscitation Status: CPR: Attempt Resuscitation Julia Melo MD Jan 30, 2017 16:01
--- NOTE | 2017-01-30 17:30 | PCM.PNNEPH ---
Subjective Date of Service Jan 30, 2017 Subjective The patient states that he is pain-free today and has had no further chest pain. Discussed with cardiology and the plans for cardiac catheterization and with the patient the wrist of benefit. At this point he is also already at stage V chronic kidney disease or dialysis is not that far away. Ultimately he can live without his renal function however he cannot live without his cardiac function and this was explained to the patient. The patient and his sister both understood this and wished to proceed. Exam Vital Signs Vital Sign - Last Date Time Temp Pulse Resp B/P Pulse Ox O2 Delivery O2 Flow Rate FiO2 01/30/17 13:40 36.7 51 20 125/71 97 Room Air 01/27/17 17:52 4.00 Intake and Output 01/29/17 01/29/17 01/30/17 Cumulative From/Thru 15:00 23:00 07:00 01/27/17 03:11 - 01/30/17 06:37 Intake Total 1557 ml 591 ml 6757 ml Output Total 1075 ml 525 ml 7725 ml Balance 482 ml 66 ml -968 ml Intake Oral 1237 ml 250 ml 5345 ml IV Total 320 ml 341 ml 1412 ml Output Urine Total 1075 ml 525 ml 7725 ml # Bowel Movements 2 6 Exam Neck is supple without adenopathy, thyromegaly, or jugular venous distention. Lungs were clear to auscultation. Heart is regular rhythm with a soft systolic murmur. Abdomen is soft without any tenderness rebound guarding masses or hepatosplenomegaly. Extremities show any evidence of any clubbing cyanosis there is some mild edema. His skin SHOWS evidence of extensive brawny induration of both distal lower extremities and lipodystrophy diabetic chloroma. Lab and Diagnostics Result Diagram: 01/29/17 0635 01/30/17 0548 Microbiology Blood cultures- negative to date Viral Nasal PCR negative X-Rays, CTs and MRIs X-RAY CHEST ONE VIEW, PORTABLE ([id number]) IMPRESSION: Bilateral lower lobe pneumonia. Small bilateral parapneumonic effusions. Dictated by: George Garcia M.D. on 01/28/2017 at 9:24 Approved by: George Garcia M.D. on 01/28/2017 at 9:25 Cardiac Echo Impressions Echocardiogram Report Interpretation Summary The left ventricle is normal in size. Left ventricular systolic function is borderline reduced. The ejection fraction is estimated to be 50-55%. There has been no significant change since the previous study. There is hypokinesis along the basal to mid inferior wall and akinesis along the basal to mid anterolateral and inferolateral wall. LV wall motion has not changed significantly. Assessment of diastolic parameters indicates a restrictive filling pattern of the left ventricle consistent with significantly elevated filling pressures. Diastolic function has decreased since prior echo study. The right ventricle is normal size. Right ventricular systolic function is borderline reduced. Pulmonary artery pressures cannot be estimated because of the lack of a measurable TR jet velocity. The left atrium is moderately dilated. Right atrial size is normal. There is no significant valvular heart disease. The aortic root is normal size. There are moderate-sized bilateral pleural effusions noted. Reading Physician:GABRIELA Plan Impression Impression #1 diabetic nephropathy with stage V kidney disease #2 type IV renal tubular acidosis #3 hypertension with hypertensive heart disease and hypertensive nephrosclerosis and coronary artery disease Recommendations #1 continued follow his renal function quite closely following his cardiac catheterization would be my hope with improved cardiac function we may delay the inevitable end stage renal disease however we need to observe the patient over the next few days following his cath. Burak Herrera DO Jan 30, 2017 17:30
[2017-01-31] VITALS (14 sets, daily range): BP systolic 116–163; BP diastolic 69–87; PULSE 47–69; RESP 16–23; O2SAT 92–97
[2017-01-31] MEDS: Heparin 25K Unit/500mL 0.45 NS 25,000 UNIT in IV Premix 1 EACH IV SCH (05:20)
--- NOTE | 2017-01-31 06:05 | NUR ---
Heart Rate Pt's heart rate dropped to 30's while sleeping per satellite project site monitor, did not sustain. Pt otherwise S-maggie HR in the 40-50's while sleeping. Call light within reach, frequent rounding.
[2017-01-31] MEDS ORDERED: Heparin 1,000 Unit/mL 10 mL Inj ONE ×2 (08:25→11:57)
[2017-01-31] MEDS ORDERED: Heparin 1,000 Units/500 mL NS Premix IV ONE ×4 (08:25→14:03)
[2017-01-31] MEDS ORDERED: Heparin 5,000 Units/500 mL NS Premix IV ONE ×2 (08:25→11:24)
[2017-01-31] MEDS ORDERED: Nitroglycerin 50,000 mcg/250 mL D5W Premix IV ONE ×2 (08:25→11:57)
[2017-01-31] MEDS ORDERED: Sodium Bicarb 8.4% 150 mEq/1,000 mL D5W IV ONE ×2 (10:10)
[2017-01-31] MEDS: Insulin GLARgine 100 Unit/mL Syringe SUBQ SCH (10:39)
[2017-01-31] MEDS ORDERED: 0.9% Sodium Chloride 2,000 ML ONE (11:57)
--- NOTE | 2017-01-31 12:29 | NUR ---
Pre-Heart Cath Pt denied any pain or discomfort today, VSS, SpO2 95% on RA. Pt now taken to labor commissioner.
[2017-01-31] MEDS ORDERED: fentaNYL-PF 50 mCg/mL 2 mL Inj ONE ×2 (12:42→14:00)
--- NOTE | 2017-01-31 13:09 | PCM.PNMED ---
Subjective Date of Service Jan 31, 2017 Subjective No problems overnight. No chest pain. Creatinine better this AM at 4.08. Patient going for cardiac cath today. Exam Vital Signs Vital Sign - Last Date Time Temp Pulse Resp B/P Pulse Ox O2 Delivery O2 Flow Rate FiO2 01/31/17 10:05 36.8 67 20 140/71 95 Room Air 01/31/17 04:49 21 01/27/17 17:52 4.00 Intake and Output 01/30/17 01/30/17 01/31/17 Cumulative From/Thru 15:00 23:00 07:00 01/27/17 03:11 - 01/31/17 06:17 Intake Total 1769 ml 336 ml 8862 ml Output Total 200 ml 600 ml 8525 ml Balance -200 ml 1169 ml 336 ml 337 ml Intake Oral 1460 ml 6805 ml IV Total 309 ml 336 ml 2057 ml Output Urine Total 200 ml 350 ml 8275 ml Urine/Stool Mix 250 ml 250 ml # Bowel Movements 1 7 Exam Eyes; jacques, eom intact ENMT; good hydration, no lesions CV; S1S2 present with soft systolic murmur, no obvious JVD, 1+ edema Resp; decreased breath sounds bases, corse breath sound, scattered crackles GI: soft, non-acute benign, non tender Skin; no rashes, dry Neuro; 2-12 intact no motor defects Lab and Diagnostics Result Diagram: 01/29/17 0635 01/31/17 0625 Microbiology Blood cultures- negative to date Viral Nasal PCR negative X-Rays, CTs and MRIs X-RAY CHEST ONE VIEW, PORTABLE ([id number]) IMPRESSION: Bilateral lower lobe pneumonia. Small bilateral parapneumonic effusions. Dictated by: George Garcia M.D. on 01/28/2017 at 9:24 Approved by: George Garcia M.D. on 01/28/2017 at 9:25 Cardiac Echo Impressions Echocardiogram Report Interpretation Summary The left ventricle is normal in size. Left ventricular systolic function is borderline reduced. The ejection fraction is estimated to be 50-55%. There has been no significant change since the previous study. There is hypokinesis along the basal to mid inferior wall and akinesis along the basal to mid anterolateral and inferolateral wall. LV wall motion has not changed significantly. Assessment of diastolic parameters indicates a restrictive filling pattern of the left ventricle consistent with significantly elevated filling pressures. Diastolic function has decreased since prior echo study. The right ventricle is normal size. Right ventricular systolic function is borderline reduced. Pulmonary artery pressures cannot be estimated because of the lack of a measurable TR jet velocity. The left atrium is moderately dilated. Right atrial size is normal. There is no significant valvular heart disease. The aortic root is normal size. There are moderate-sized bilateral pleural effusions noted. Reading Physician:AM Assessment & Plan 61 y/o male with DM2 insulin-using, hypertension, hyperlipidemia, CAD s/p catheterization in 2007, and CKD stage 3 who presented to the ED via EMS c/o SOB and admitted for further evaluation and treatment of possible community pneumonia, CHF exacerbation and possible NSTEMI. 1. Acute CHF exacerbation secondary to diastolic dysfunction, present on admission. improving. -Echo on 08/21/2016 showed mild-moderate LVH, EF 50-55%, grade 2 diastolic dysfunction. -diuresed a bit with the lasix, CXR no change -echo show normal LV function but increased diastolic dysfunction -continue with current po lasix 2.Acute NSTEMI, present on admission, improving -Pt w/hx of prior NSTEMI, CAD s/p catheterization in 2007. -Continue home statin, aspirin, plavix, lipitor, IV Heparin -heart cath today 3. Acute on chronic kidney injury, present on admission. Active. 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 -creatinine better today 4.08 -discussed with nephrology who will see patient and advise, concern also is possible cardiac cath 4. Chronic diabetes mellitus type 2, insulin-using, present on admission. Active -Last A1c 7.3 on 08/21/16. Serum glucose on admission 122 -Home insulin regimen: Insulin Glargine 40 UNITS SQ AM; Humalog 12-22 unitics bid AC -Lantus 8 now then 45 q AM and Humalog 12-22 units AC tid patient to pick own dose 5. Chronic Hypertension, present on admission. Active. -BP on admission, 150s-170s/70s-90s. -Continue home dosing amlodipine, metoprolol -Lasix as above. 6- Chronic hyperlipidemia, present on admission. Presumed stable. -Continue home statin. 8. Possible community acquired pneumonia, present on admission. never had pneumonia -given antibiotic in ER, then not continued. -in retrospect patient did not have pneumonia - Acetaminophen as needed for mild pain/fever/headache - Bowel regimen as needed - Antiemetic as needed Patient is admitted under inpatient status with expected length of stay greater than 2 midnights due to severity of presenting symptoms, risk of adverse event, and complexity of treatment plan. VTE Prophylaxis: Sub-Q Heparin (Unfractionated) VTE Mechanical Devices: Intermittant Pneumatic CD Resuscitation Status: CPR: Attempt Resuscitation Julia Melo MD Jan 31, 2017 13:09
--- NOTE | 2017-01-31 13:55 | NUR ---
[facility]I PT WAS RECEIVED FROM COMBAT SYSTEMS OPERATOR [facility] AT 1345. RIGHT GROIN PERCLOSE COVERED WITH OPSITE IS SOFT, NON TENDER, NO BLEEDING NOTED. RIGHT DP 2+. BICARB IV RUNNING AT 50ML/HR. PT IS ALERT AND TAKING SOME SIPS PO FLUIDS. HE IS AWARE OF ACTIVITY RESTRICTIONS. CONTINUE TO MONITOR CLOSELY.
--- NOTE | 2017-01-31 14:08 | CS94 ---
[address] [address] DIAGNOSTIC CARDIAC CATHETERIZATION PATIENT: NAZIA STEVEN : 1955 MR#: [id number] ADMIT: 01/27/2017 JOB ID: [id number] SERVICE DATE: 01/31/2017 PATIENT PROFILE: The patient is a 61-year-old male with history of diabetes, hypertension, hyperlipidemia. He has chronic kidney disease, stage IV. The patient presented with non ST elevated myocardial infarction. PROCEDURE: 1. Retrograde left heart catheterization. 2. Selective coronary angiography. VASCULAR CLOSURE DEVICE: Perclose. COMPLICATION: None. METHOD: Retrograde left heart catheterization was performed from the right groin under 1% lidocaine local anesthesia using a 6-Greenlandic sheath. Selective coronary angiogram was performed in multiple projections, including cranial caudal angulations with hand injected contrast via JL4 and 3DRC catheters. A 5-Greenlandic angulated pigtail catheter was advanced to the left ventricle and left ventricular pressure was obtained. Right femoral angiogram was performed. Following sheath removal, hemostasis was achieved by using a Perclose device. The patient tolerated the procedure well. He was transferred to ICU in good condition. TOTAL CONTRAST USED: 25 cc. FLUOROSCOPY TIME: 0.7 minutes. TOTAL RADIATION DOSE: 285 mGy. RESULTS: 1. Selective coronary angiogram: a. Left main coronary artery is calcified and has minor irregularity. b. The left anterior descending artery is transapical with heavy tubular calcification throughout the entire artery with diffuse irregularity and 70%-80% stenosis in the mid to distal portion. All diagonal branches are quite small and have diffuse disease. c. The circumflex artery has 95% stenosis in the mid portion with heavy calcification. The obtuse marginal branches are quite small and have diffuse disease. d. The dominant right coronary artery is heavily calcified and has diffuse disease of 50%-70% stenosis. 2. Aortic pressure is 157/75 mmHg. Left ventricular pressure is 157/9 mmHg. 3. Left ventricular end-diastolic is 43 mmHg. CONCLUSION: 1. Heavily calcified coronary arteries with diffuse disease. 2. Small vessel disease. 3. LVEDP is 43 mmHg. PLAN: Conservative medical management. His anatomy is not too suitable for percutaneous coronary intervention or coronary bypass surgery. [facility] CENTERJulia
--- NOTE | 2017-01-31 14:30 | PCM.PNNEPH ---
Subjective Date of Service Jan 31, 2017 Subjective Mr. Gutierrez is doing well as morning. His cath is scheduled for today and he is going to be given a short course of IV fluids. In light of his proteinuria as well as renal and heart status I would caution in excessive amounts of fluid. Otherwise he denies any chest pain or shortness of breath, cough or wheezing. Exam Vital Signs Vital Sign - Last Date Time Temp Pulse Resp B/P Pulse Ox O2 Delivery O2 Flow Rate FiO2 01/31/17 14:15 51 21 122/70 92 Room Air 01/31/17 10:05 36.8 01/31/17 04:49 21 01/27/17 17:52 4.00 Intake and Output 01/30/17 01/30/17 01/31/17 Cumulative From/Thru 15:00 23:00 07:00 01/27/17 03:11 - 01/31/17 06:17 Intake Total 1769 ml 336 ml 8862 ml Output Total 200 ml 600 ml 8525 ml Balance -200 ml 1169 ml 336 ml 337 ml Intake Oral 1460 ml 6805 ml IV Total 309 ml 336 ml 2057 ml Output Urine Total 200 ml 350 ml 8275 ml Urine/Stool Mix 250 ml 250 ml # Bowel Movements 1 7 Exam Neck is supple without adenopathy thyromegaly or jugular venous distention. Once again the patient demonstrates extensive acanthosis nigricans throughout his neck. Lungs were clear to auscultations are somewhat diminished. Heart is regular with a soft systolic murmur. Abdomen is soft without any tenderness or rebound guarding masses or hepatosplenomegaly. Extremities showed some mild pitting lower extremity edema with chronic skin changes. Lab and Diagnostics Result Diagram: 01/29/17 0635 01/31/17 0625 Microbiology Blood cultures- negative to date Viral Nasal PCR negative X-Rays, CTs and MRIs X-RAY CHEST ONE VIEW, PORTABLE ([id number]) IMPRESSION: Bilateral lower lobe pneumonia. Small bilateral parapneumonic effusions. Dictated by: George Garcia M.D. on 01/28/2017 at 9:24 Approved by: George Garcia M.D. on 01/28/2017 at 9:25 Cardiac Echo Impressions Echocardiogram Report Interpretation Summary The left ventricle is normal in size. Left ventricular systolic function is borderline reduced. The ejection fraction is estimated to be 50-55%. There has been no significant change since the previous study. There is hypokinesis along the basal to mid inferior wall and akinesis along the basal to mid anterolateral and inferolateral wall. LV wall motion has not changed significantly. Assessment of diastolic parameters indicates a restrictive filling pattern of the left ventricle consistent with significantly elevated filling pressures. Diastolic function has decreased since prior echo study. The right ventricle is normal size. Right ventricular systolic function is borderline reduced. Pulmonary artery pressures cannot be estimated because of the lack of a measurable TR jet velocity. The left atrium is moderately dilated. Right atrial size is normal. There is no significant valvular heart disease. The aortic root is normal size. There are moderate-sized bilateral pleural effusions noted. Reading Physician:GABRIELA Hernández Impression Impression #1 chronic kidney disease stage V #2 diabetic nephropathy #3 hypertension with hypertensive heart disease hypertensive nephrosclerosis #4 coronary artery disease Recommendations #1 we will continue to follow his lab along with his intake and output over the next several days. Burak Herrera DO Jan 31, 2017 14:30
--- NOTE | 2017-01-31 15:18 | NUR ---
[facility] TRANSFER REPORT CALLED TO BILLIE Dowd RN AND PT AND HIS NURSING CARE WERE TRANSFERRED BACK TO ROOM 3030 AT 1520. BEDREST UNTIL 1730.
--- NOTE | 2017-01-31 16:31 | NUR ---
Assumed Care/BG: Received report from Ame @approx 1500. Patient arrived to room @ approx 1530. Alert & oriented, denies pain, cath site check C/D/I, no bleeding, bruising or swelling. Bedrest until 173. Patient aware. BG check 60. Cranberry juice provided. Patient states he feels "shaky". Will continue to monitor. Addendum: 01/31/17 at 1722 by BILLIE WILDE RN Recheck of BG 104. Patient now eating dinner.
[2017-02-01] VITALS (8 sets, daily range): BP systolic 114–146; BP diastolic 62–80; PULSE 50–68; RESP 16–20; O2SAT 93–97
[2017-02-01] MEDS: Insulin GLARgine 100 Unit/mL Syringe SUBQ SCH (08:23)
--- NOTE | 2017-02-01 09:00 | PCM.PNMED ---
Subjective Date of Service Feb 01, 2017 Subjective No roblems overnight. Cath done. Creatinine actually better this AM. No CP. Other lab OK. Exam Vital Signs Vital Sign - Last Date Time Temp Pulse Resp B/P Pulse Ox O2 Delivery O2 Flow Rate FiO2 02/01/17 05:58 21 02/01/17 05:38 68 02/01/17 05:05 36.8 18 142/80 93 Room Air 01/27/17 17:52 4.00 Intake and Output 01/31/17 01/31/17 02/01/17 Cumulative From/Thru 15:00 23:00 07:00 01/27/17 03:11 - 02/01/17 05:36 Intake Total 986 ml 1055 ml 400 ml 49010 ml Output Total 1050 ml 1000 ml 950 ml 22701 ml Balance -64 ml 55 ml -550 ml -222 ml Intake Oral 600 ml 520 ml 400 ml 8325 ml IV Total 386 ml 535 ml 2978 ml Output Urine Total 1050 ml 1000 ml 950 ml 21199 ml Urine/Stool Mix 250 ml # Bowel Movements 0 7 Exam Eyes; jacques, eom intact ENMT; good hydration, no lesions CV; S1S2 present with soft systolic murmur, no obvious JVD, minimal edema today Resp; decreased breath sounds bases, coarse breath sound, scattered crackles GI: soft, non-acute benign, non tender Skin; no rashes, dry Neuro; 2-12 intact no motor defects Lab and Diagnostics Result Diagram: 02/01/17 0536 02/01/17 0536 Microbiology Blood cultures- negative to date Viral Nasal PCR negative X-Rays, CTs and MRIs X-RAY CHEST ONE VIEW, PORTABLE ([id number]) IMPRESSION: Bilateral lower lobe pneumonia. Small bilateral parapneumonic effusions. Dictated by: George Garcia M.D. on 01/28/2017 at 9:24 Approved by: George Garcia M.D. on 01/28/2017 at 9:25 Cardiac Echo Impressions Echocardiogram Report Interpretation Summary The left ventricle is normal in size. Left ventricular systolic function is borderline reduced. The ejection fraction is estimated to be 50-55%. There has been no significant change since the previous study. There is hypokinesis along the basal to mid inferior wall and akinesis along the basal to mid anterolateral and inferolateral wall. LV wall motion has not changed significantly. Assessment of diastolic parameters indicates a restrictive filling pattern of the left ventricle consistent with significantly elevated filling pressures. Diastolic function has decreased since prior echo study. The right ventricle is normal size. Right ventricular systolic function is borderline reduced. Pulmonary artery pressures cannot be estimated because of the lack of a measurable TR jet velocity. The left atrium is moderately dilated. Right atrial size is normal. There is no significant valvular heart disease. The aortic root is normal size. There are moderate-sized bilateral pleural effusions noted. Reading Physician:GABRIELA Assessment & Plan 61 y/o male with DM2 insulin-using, hypertension, hyperlipidemia, CAD s/p catheterization in 2007, and CKD stage 3 who presented to the ED via EMS c/o SOB and admitted for further evaluation and treatment of possible community pneumonia, CHF exacerbation and possible NSTEMI. 1. Acute CHF exacerbation secondary to diastolic dysfunction, present on admission. improving. -Echo on 08/21/2016 showed mild-moderate LVH, EF 50-55%, grade 2 diastolic dysfunction. -echo show normal LV function but increased diastolic dysfunction -lasix on hold for Cath, resume soon 2.Acute NSTEMI, present on admission, improving -Pt w/hx of prior NSTEMI, CAD s/p catheterization in 2007. -Continue home statin, aspirin, plavix, lipitor -IV heparin discontinued -heart cath, not cantidate for stent or CABG -maximize medical management (statin, asa, plavix, b princess 3. Acute on chronic kidney injury, present on admission. improving. -base line creatinine runs 2 to 3 -Pt w/ CKD stage 3, [employer]- Dr. Rainey. -creatinine better today 3.75 4. Chronic diabetes mellitus type 2, insulin-using, present on admission. Active -Last A1c 7.3 on 08/21/16. Serum glucose on admission 122 -Home insulin regimen: Insulin Glargine 40 UNITS SQ AM; Humalog 12-22 unitics bid AC -Lantus 8 now then 45 q AM and Humalog 12-22 units AC tid patient to pick own dose 5. Chronic Hypertension, present on admission. Active. -BP on admission, 150s-170s/70s-90s. -Continue home dosing amlodipine, metoprolol 6- Chronic hyperlipidemia, present on admission. Presumed stable. -Continue home statin. 8. Possible community acquired pneumonia, present on admission. never had pneumonia -given antibiotic in ER, then not continued. -in retrospect patient did not have pneumonia - Acetaminophen as needed for mild pain/fever/headache - Bowel regimen as needed - Antiemetic as needed Patient is admitted under inpatient status with expected length of stay greater than 2 midnights due to severity of presenting symptoms, risk of adverse event, and complexity of treatment plan. VTE Prophylaxis: Sub-Q Heparin (Unfractionated) VTE Mechanical Devices: Intermittant Pneumatic CD Resuscitation Status: CPR: Attempt Resuscitation Julia Melo MD Feb 01, 2017 09:00
--- NOTE | 2017-02-01 12:18 | PCM.PNNEPH ---
Subjective Date of Service Feb 01, 2017 Subjective I have reviewed the cardiac catheterization report and appears there is nothing that is easily amenable to any type of therapy. Patient states that he feels well estimated today and denies any chest pain shortness of breath or wheezing. Cecal E his creatinine improved somewhat to a level III.75 today. I strongly suspect this is more due to pre-and postcatheterization hydration. The last 24 hours he has had 23 7710 and 2050 out. His blood pressures have been good. Exam Vital Signs Vital Sign - Last Date Time Temp Pulse Resp B/P Pulse Ox O2 Delivery O2 Flow Rate FiO2 02/01/17 10:12 64 02/01/17 09:38 36.9 20 118/68 95 Room Air 02/01/17 05:58 21 01/27/17 17:52 4.00 Intake and Output 01/31/17 01/31/17 02/01/17 Cumulative From/Thru 15:00 23:00 07:00 01/27/17 03:11 - 02/01/17 05:36 Intake Total 986 ml 1055 ml 400 ml 75840 ml Output Total 1050 ml 1000 ml 950 ml 57306 ml Balance -64 ml 55 ml -550 ml -222 ml Intake Oral 600 ml 520 ml 400 ml 8325 ml IV Total 386 ml 535 ml 2978 ml Output Urine Total 1050 ml 1000 ml 950 ml 13322 ml Urine/Stool Mix 250 ml # Bowel Movements 0 7 Exam Neck is supple without adenopathy thyromegaly or jugular venous distention. Lungs are clear to auscultation. Heart is regular and rhythmical with a soft systolic murmur. Abdomen is soft without any tenderness rebound guarding masses or hepatosplenomegaly. Extremities do not show any evidence of any clubbing cyanosis or edema. Skin turgor is good. Lab and Diagnostics Result Diagram: 02/01/17 0536 02/01/17 0536 Microbiology Blood cultures- negative to date Viral Nasal PCR negative X-Rays, CTs and MRIs X-RAY CHEST ONE VIEW, PORTABLE ([id number]) IMPRESSION: Bilateral lower lobe pneumonia. Small bilateral parapneumonic effusions. Dictated by: George Garcia M.D. on 01/28/2017 at 9:24 Approved by: George Garcia M.D. on 01/28/2017 at 9:25 Cardiac Echo Impressions Echocardiogram Report Interpretation Summary The left ventricle is normal in size. Left ventricular systolic function is borderline reduced. The ejection fraction is estimated to be 50-55%. There has been no significant change since the previous study. There is hypokinesis along the basal to mid inferior wall and akinesis along the basal to mid anterolateral and inferolateral wall. LV wall motion has not changed significantly. Assessment of diastolic parameters indicates a restrictive filling pattern of the left ventricle consistent with significantly elevated filling pressures. Diastolic function has decreased since prior echo study. The right ventricle is normal size. Right ventricular systolic function is borderline reduced. Pulmonary artery pressures cannot be estimated because of the lack of a measurable TR jet velocity. The left atrium is moderately dilated. Right atrial size is normal. There is no significant valvular heart disease. The aortic root is normal size. There are moderate-sized bilateral pleural effusions noted. Reading Physician:GABRIELA Plan Impression Impression #1 stage V chronic kidney disease #2 coronary artery disease #3 diabetic nephropathy #4 hypertension with hypertensive heart disease and hypertensive nephrosclerosis. Mentation #1 would like to continue to monitor his lab values and if these are stable he can be discharged tomorrow. Burak Herrera DO Feb 01, 2017 12:18
--- NOTE | 2017-02-01 16:19 | NUR ---
Cardiac/Activity Pt HR SB high 50s to 60s, per electromechanical technician. Post scheduled PO metoprolol pt SB high 40s-low 60s. Pt denies dizziness/lightheadedness. R groin site soft, no oozing, distal pulses palpable, denies pain. Denies CP/Pressure. Up in room independently, gait steady. SpO2 mid 90s on RA.
[2017-02-02 00:09] VITALS: BP 176/81; PULSE 71; RESP 18; O2SAT 95
[2017-02-02 04:48] VITALS: BP 114/76; PULSE 52; RESP 18; O2SAT 96
--- NOTE | 2017-02-02 05:27 | NUR ---
Heart Rate Patients heart rate 48-55's over night. HS dose of metoprolol held due to low HR. patient non-symptomatic. BP stable. Will continue to monitor.
[2017-02-02 06:23] VITALS: PULSE 56
--- NOTE | 2017-02-02 09:00 | NUR ---
SAMARA signed. DALJIT Mulligan
[2017-02-02 09:17] VITALS: PULSE 80
[2017-02-02] MEDS: Insulin GLARgine 100 Unit/mL Syringe SUBQ SCH (09:22)
[2017-02-02 10:18] VITALS: BP 129/72; PULSE 52; RESP 18; O2SAT 98
--- NOTE | 2017-02-02 11:44 | PCM.DIMED ---
Discharge Instructions Date of Service Feb 02, 2017 Dates of Hospitalization Jan 27, 2017 at 05:00 Discharge Diagnosis Discharge Diagnosis 1. Acute CHF exacerbation secondary to diastolic dysfunction, present on admission. improving. 2.Acute NSTEMI, present on admission, improving 3. Acute on chronic kidney injury, present on admission. improving. 4. Chronic diabetes mellitus type 2, insulin-using, present on admission. Active 5. Chronic Hypertension, present on admission. Active. 6- Chronic hyperlipidemia, present on admission. Presumed stable. 8. Possible community acquired pneumonia, present on admission. never had pneumonia Diet Low fat, Low Sodium Activity Limited until seen by PCP Patient Instructions Weigh yourself every morning nd lópez down the weight on your John, you can adjust you diuretic to keep you weight stable. Take these weights to you doctors office so he can review. Follow-up plan Follow up with Dr. Brandin low. Also follow up with you primary care provider. Follow-up with PCP in: 1 week Julia Melo MD Feb 02, 2017 11:44
--- NOTE | 2017-02-02 11:51 | PCM.DC.MED ---
Discharge Summary Date of Service Feb 02, 2017 Dates of Hospitalization Date of Hospital Admission Jan 27, 2017 at 05:00 Date of Discharge: Feb 02, 2017 Providers: Admitting Physician: Mary Smith DO Primary Care Physician: Aaron Woods MD Attending Physician: Mary Smith DO Diagnosis at Time of Discharge Diagnosis at Time of Discharge 1. Acute CHF exacerbation secondary to diastolic dysfunction, present on admission. improving. 2. Acute NSTEMI, present on admission, improving 3. Acute on chronic kidney injury, stage 4, present on admission. improving. 4. Chronic diabetes mellitus type 2, insulin-using, present on admission. Active 5. Chronic Hypertension, present on admission. Active. 6- Chronic hyperlipidemia, present on admission. Presumed stable. 8. Possible community acquired pneumonia, present on admission. never had pneumonia Consultations Consult Subjective Date of service Jan 28, 2017 Date of admit Jan 27, 2017 at 05:00 Provider Requesting Consult Requesting Provider: Julia Melo MD Primary Care Physician Primary Care Physician: Aaron Woods MD Chief Complaint NSTEMI, heart failure History of Present Illness 61 yo M h/o diabetes, HTN, stage 4 CKD, and CAD admitted with NSTEMI. Patient states that he is relatively active at home at his baseline, including doing yard work. Over the past 2 weeks, patient started having chest pain and shortness of breath with exertion. This has progressively gotten worse to the point that she cannot even get out of bed. He came to [facility] emergency room for evaluation and management. Yesterday, he received IV furosemide 40 mg once and had a reasonable urine for about a liter. He felt a little better. Today, his dyspnea has gotten progressively worse again. His diuretics were stopped due to slight increase in his creatinine. Patient's other symptoms include lightheadedness with this chest discomfort, fatigue, and occasional nausea. Denies palpitations, syncope, vomiting, fevers , or chills. Review of Systems Review of Systems Per history of present illness and otherwise unremarkable H Past Medical History # CAD: Cath 2008 showed diffuse CAD including 70% stenosis of the proximal LCx, 70% stenosis of the OM2, and 50% stenosis of the OM3, 50% stenosis of the mid to distal LAD, and 70% stenosis of the small distal RCA. # HTN # Diabetes # Stage 4 CKD: not on HD Bedside Blood Glucose: 129 Scheduled Amlodipine (Amlodipine) 5 Mg Tablet 5 MG PO BID (Reported) Aspirin (Aspirin) 81 Mg Tablet 81 MG PO DAILY (Reported) Atorvastatin (Lipitor) 40 Mg Tablet 40 MG PO HS (Reported) Calcitriol (Rocaltrol) 0.25 Mcg Capsule 0.5 MCG PO DAILY (Reported) Cholecalciferol (Vitamin D3) (Vitamin D3) 2,000 Unit Capsule 2,000 UNIT PO DAILY (Reported) Clopidogrel (Clopidogrel) 75 Mg Tablet 75 MG PO DAILY Furosemide (Lasix) 40 Mg Tablet 20 MG PO DAILY (Reported) Insulin Glargine (Lantus U100 Solostar Insulin Pen) 100 Unit/1 Ml Insuln.pen 45 UNITS SQ HS (Reported) Insulin Lispro (HumaLOG U100 Insulin Pen) 100 Unit/1 Ml Insuln.pen SQ BIDWM ( Reported) 18-22 units subcutaneous route two times a day with meals for diabetes Metoprolol Tartrate (Metoprolol Tartrate) 25 Mg Tablet 50 MG PO BID (Reported) Discontinued Medications Simvastatin (Simvastatin) 40 Mg Tablet 40 MG PO DAILY (Reported) Current Inpatient Medications Current Medications Heparin Sodium (Porcine) 5,000 unit Q8 SUBQ Last administered on 01/27/17 16:59 ; Admin Dose 5,000 UNIT; Start 01/27/17 at 08:30; Stop 01/27/17 at 17:04; Status DC Al Hydrox/Mg Hydrox/Simethicone 30 ml Q6H PRN PO; Start 01/27/17 at 04:30 Ondansetron HCl 4 to 8 mg Q4H PRN IVPUSH; Start 01/27/17 at 04:30 Senna 17.2 mg BID PRN PO; Start 01/27/17 at 04:30 Polyethylene Glycol 17 gm DAILY PRN PO; Start 01/27/17 at 04:30 Acetaminophen 650 mg Q4H PRN PO; Start 01/27/17 at 04:30 Furosemide 40 mg DAILY IVPUSH Last administered on 01/28/17 09:21; Admin Dose 40 MG; Start 01/27/17 at 08:30 Insulin Glargine 45 unit MORNING SUBQ Last administered on 01/28/17 12:15; Admin Dose 45 UNIT; Start 01/28/17 at 08:30 Insulin Human Lispro patient to pick own dose TIDAC PRN SUBQ; Start 01/27/17 at 13:45 Amlodipine Besylate 5 mg BID PO Last administered on 01/28/17 09:21; Admin Dose 5 MG; Start 01/27/17 at 20:30 Aspirin 81 mg DAILY PO Last administered on 01/28/17 09:21; Admin Dose 81 MG; Start 01/28/17 at 08:30 Atorvastatin Calcium 40 mg HS PO Last administered on 01/27/17 19:48; Admin Dose 40 MG; Start 01/27/17 at 21:00 Calcitriol 0.5 mcg DAILY PO Last administered on 01/28/17 09:21; Admin Dose 0.5 MCG; Start 01/28/17 at 08:30 Clopidogrel Bisulfate 75 mg DAILY PO Last administered on 01/28/17 09:21; Admin Dose 75 MG; Start 01/28/17 at 08:30 Metoprolol Tartrate 50 mg BID PO Last administered on 01/28/17 09:21; Admin Dose 50 MG; Start 01/27/17 at 20:30 Cholecalciferol 2,000 unit DAILY PO Last administered on 01/28/17 09:21; Admin Dose 2,000 UNIT; Start 01/28/17 at 08:30 Heparin Sodium (Porcine) Per Protocol for a... PRN PRN IVPUSH Last administered on 01/28/17 12:24; Admin Dose 1,000 UNIT; Start 01/27/17 at 17:00 Nitroglycerin 0.4 mg Q5MIN PRN SL; Start 01/27/17 at 18:30 Allergies: Coded Allergies: lisinopril (Verified Adverse Reaction, Unknown, cough, 01/27/17) Family History Family History Dad had IA in his 40s and from HF and smoking related pulmonary issues Social History Hx Alcohol Use: Yes (socially)Hx Substance Use: NoHx Tobacco Use: No Smoking Status: Former Smoker Living Arrangement: with Family Exam Vital Signs Vital Sign - Last Date Time Temp Pulse Resp B/P Pulse Ox O2 Delivery O2 Flow Rate FiO2 01/28/17 12:48 37.0 70 22 136/79 94 Room Air 01/27/17 17:52 4.00 Intake and Output 01/27/17 01/27/17 01/28/17 Cumulative From/Thru 15:00 23:00 07:00 01/27/17 03:11 - 01/28/17 06:44 Intake Total 1293 ml 243 ml 1536 ml Output Total 2225 ml 2225 ml Balance -932 ml 243 ml -689 ml Intake Oral 1293 ml 1293 ml IV Total 243 ml 243 ml Output Urine Total 2225 ml 2225 ml # Bowel Movements 0 0 Objective General appearance: in mild respiratory distress, well-nourished, pleasant, cooperative HEET: Normocephalic atraumatic, no scleral icterus, tongue midline, mucous membranes moist Neck: supple, no carotid bruits Cardiovascular: RRR, normal S1 and normal S2, no murmurs/ rubs/gallops, PMI nondisplaced, no JVD, 1+ peripheral edema Respiratory: poor aeration, speaking in 4 word sentences, diffuse rhonchi, coarse diffusely, tight Abdomen: Soft, nontender, nondistended, + bowel sounds Neuro: Alert, no facial droop, tongue midline, no gross motor deficits Psych: appropriate affect Skin: no rashes on face, neck, and lower extremities Lab and Diagnostics Labs Troponin 0.073 -> 0.24 -> 0.42 -> 0.35 -> 1.54 Result Diagram: 01/28/1762401/28/17624 X-Rays, CTs and MRIs CXR on admission shows interstitial and pulmonary edema Assessment & Plan Assessment 61 yo M h/o diabetes, HTN, stage 4 CKD, and CAD admitted with NSTEMI # NSTEMI: Patient has known coronary artery disease and is presenting with typical symptoms of angina and dyspnea for heart failure related to ischemic cardiomyopathy. Troponin rising and now at 1.54. Cath 2007 showed diffuse CAD including 70% stenosis of the proximal LCx, 70% stenosis of the OM2, and 50% stenosis of the OM3, 50% stenosis of the mid to distal LAD, and 70% stenosis of the small distal RCA. I spent significant time the patient about his condition and he prefers to undergo invasive procedures to make him more comfortable. I also spoke with Dr. Bhakta (primary team) and Dr. Friend (primary advertising photographer) who recommended that we diuresed the patient so that he can lay flat for that patient undergo coronary angiography. Nephrology is aware and is willing to start the patient on dialysis which will likely happen sooner especially if we proceed with coronary angiography. Plan as below: - Continue aspirin 81mg daily - Continue heparin gtt - Continue atorvastatin 40mg qhs - Continue amlodipine 5mg bid - Echo pending - Once patient able to lay flat, he can proceed with coronary angiography with Dr. Friend # HF, acute: from ischemic cardiomyopathy. EF unknown at this time but was low normal last year. He is NYHA class IV. Plan: - Echo pending - Diurese with IV furosemide to improve his dyspnea. # HTN: well controlled. # Diabetes: on insulin. Defer to primary team. # Stage 4 CKD: not on HD yet. Etiology is diabetic and hypertensive nephropathy. Defer to nephrology for management but suspect that the patient will need dialysis soon. Thank you for the interesting consultation. Cardiology will continue to follow. Pain Evaluation: Adequate Pain Control VTE Prophylaxis Indicated: Meets Criteria for Anticoag Therapy VTE Prophylaxis: Sub-Q Heparin (Unfractionated) VTE Mechanical Devices: Intermittant Pneumatic CD Resuscitation Status: CPR: Attempt Resuscitation Narcisa Moore MD History of Present Illness: Nephrology Consultation Note 61-year-old male with past medical history remarkable for chronic kidney disease stage [address] Ghotra, coronary artery disease and diastolic CHF followed by Dr. Friend, presents with 2 weeks of worsening shortness of breath culminating in severe dyspnea on exertion and chest pressure at 2 AM December 27. The patient states that he got up to go to the restroom at 2 AM and felt significant chest pressure with severe shortness of breath at which point he called his sister and EMS. The patient states that he was seen by his primary care physician a few days prior and was checked out without issue other than mild hypertension. The patient denies fever or chills, chronic cough, pain on inspiration or worsening leg swelling. The patient states that he does not regularly check his legs for swelling though. The patient has loss to toes on his right foot due to infections associated with his diabetes. The patient actually had a kidney biopsy done at [facility] by Dr. Ghotra but he is unsure of the results at this time. The patient states at that time Dr. Ghotra discontinued losartan and decreased his daily Lasix pill and increased his cholesterol pill. The patient admits that he seems to respond very well to Lasix and produces a lot of urine after being given this medication. The patient was on losartan which was stopped due to hyperkalemia. The patient has been a type two diabetic since college in the 1970s and states that he has had retinopathy and neuropathy. The patient was scheduled to see his advertising photographer Dr. Friend as an outpatient tomorrow. Review of Systems: A comprehensive review of systems was obtained and all are negative except for what is included in the history of present illness. 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 Coronary artery disease s/p catheterization in 2007 Diabetes mellitus type 2 w/retinopathy, neuropathy, and nephropathy Hypertension Hyperlipidemia NSTEMI Obesity diastolic CHF Obstructive Sleep Apnea Hx Diabetes: YesBedside Blood Glucose: 171 Surgical History Coronary artery catheterization in 2007 without PCI Kidney biopsy in 2016 at [facility] records requested Home Medications Amlodipine 5 MG PO BID Aspirin 81 MG PO DAILY Atorvastatin 40 MG PO HS Calcitriol 0.5 MCG PO DAILY Cholecalciferol 2,000 UNIT PO DAILY Clopidogrel 75 MG PO DAILY Furosemide 20 MG PO DAILY Insulin Glargine 45 UNITS SQ HS Insulin Lispro 18-22 units SQ BIDWM Metoprolol Tartrate 50 MG PO BID Allergies: Coded Allergies: lisinopril (Verified Adverse Reaction, Unknown, cough, 01/27/17) Family History Family History Several with DM2 Sister with breast cancer in remission Social History Hx Alcohol Use: Yes (socially)Hx Substance Use: NoHx Tobacco Use: No Smoking Status: Former Smoker Living Arrangement: with Family Exam Vital Signs Vital Sign - Last Date Time Temp Pulse Resp B/P Pulse Ox O2 Delivery O2 Flow Rate FiO2 01/28/17 10:42 73 01/28/17 09:26 20 132/117 86 Room Air 01/28/17 06:52 36.6 01/27/17 17:52 4.00 Intake and Output 01/27/17 01/27/17 01/28/17 Cumulative From/Thru 15:00 23:00 07:00 01/27/17 03:11 - 01/28/17 06:44 Intake Total 1293 ml 243 ml 1536 ml Output Total 2225 ml 2225 ml Balance -932 ml 243 ml -689 ml Intake Oral 1293 ml 1293 ml IV Total 243 ml 243 ml Output Urine Total 2225 ml 2225 ml # Bowel Movements 0 0 Additional Information: General: Well-developed, well-nourished, in no acute distress, appropriately interactive Eyes: Pupils equal round and reactive to light, anicteric sclera, noninjected conjunctiva HEENT: Normocephalic, atraumatic. Moist mucous membranes without central cyanosis,. Oropharynx free of erythema and cobble stoning Neck: Supple, short and thick neck No jugular venous distension. No bruits. No lymphadenopathy or thyromegaly. Cardiovascular: Distant heart sounds noted but Regular rate and rhythm with no murmurs, rubs, or gallops appreciated Pulmonary: Diminished breath sounds right worse than left at the bases bilaterally with crackles noted worse on the left base than the right, no wheezes, no use of accessory muscles. Abdomen: Bowel tones present. Soft, nontender, nondistended. No hepatosplenomegaly or masses appreciated. Extremities: Bilateral pitting edema above the knee, chronic skin changes, no clubbing, cyanosis, first and second digits amputated on the right lower extremity Skin: Minor venous stasis changes noted in the left lower extremity with darkening and mild induration noted. Warm and dry; no rash, ulcers, or subcutaneous nodules appreciated. Neurological: Cranial nerves grossly intact. Normal muscle strength, tone, and bulk. Reflexes, coordination, and sensory function within normal limits. No known gait impairment. Psychiatric: Normal mood and affect. Alert and oriented to person, place, and time. Lab and Diagnostics Result Diagram: 01/28/1762401/28/17624 X-Rays, CTs and MRIs X-RAY CHEST ONE VIEW, PORTABLE IMPRESSION: 1. Left lower lobe and possibly right lower lobe pneumonia Dictated by: George Garcia M.D. on 01/27/2017 at 8:20 Approved by: George Garcia M.D. on 01/27/2017 at 8:22 X-RAY CHEST ONE VIEW, PORTABLE IMPRESSION: Bilateral lower lobe pneumonia. Small bilateral parapneumonic effusions. Dictated by: George Garcia M.D. on 01/28/2017 at 9:24 Approved by: George Garcia M.D. on 01/28/2017 at 9:25 12-lead ECG Sinus rhythm Borderline prolonged SD interval Biphasic P waves in V1 and V2 consistent with Left atrial enlargement Borderline Right axis deviation Nonspecific T abnormalities, lateral leads - terminally positive biphasic T waves in precordial lateral leads V5 and V6 mildly in V4 Additional Diagnostics: Echocardiogram ordered and pending Assessment & Plan Assessment 61-year-old male with past medical history remarkable for chronic kidney disease stage 4 and coronary artery disease and diastolic CHF presents with 2 weeks of worsening shortness of breath culminating in severe dyspnea on exertion and chest pressure at 2 AM December 3. Hospital Day 2 1. Likely Acute Kidney Injury on Chronic Kidney Disease, present on admission, under evaluation - Patient records indicate CKD is Stage 4 with last CMP preformed by his instrument room technician Dr. 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 Possible Non-ST Segment Elevation Myocardial Infarction, present on admission - Troponins continue to rise now up to 1.5 which in not consistent with chronic troponin leak of CKD - nonspecific biphasic Twaves in precordial leads V4-V6 can indicate ischemia - cardiology consulted - if the patient requires a cardiac catheterization please limit the contrast volume given and please use isotonic contrast - Patient is already on a heparin drip, as well as aspirin, clopidogrel, atorvastatin, and metoprolol - nephrology service will defer to cardiology if a catheterization procedure is required 3. acute exacerbation of chronic diastolic congestive heart failure (HFpEF), present on admission - Patient is clinically mildly hypervolemic currently - patient has already received two doses of Lasix 40mg - Hold further diuretics given the likely possibility of cardiac catheterization 4. Diabetes Mellitus type 2, present on admission, chronic - continue patient's regular home insulin therapy including Lantus and Lispro 5. Obstructive Sleep Apnea, present on admission, chronic - continue CPAP at night Thank you for this very interesting consult. The Nephrology service will be available to coordinate care with the Cardiology team. Patient was seen and examined. Agreed with Dr. Goodman' assessment and plan as outlined. Thank you for the consultation. Problems: Pain Evaluation: Adequate Pain Control VTE Prophylaxis Indicated: Meets Criteria for Anticoag Therapy VTE Prophylaxis: Sub-Q Heparin (Unfractionated) VTE Mechanical Devices: Intermittant Pneumatic CD Resuscitation Status: CPR: Attempt Resuscitation Rashaad Goodman DO Jan 28, 2017 10:55 Estela Nichols MD Procedures XRay, CTs & MRIs X-RAY CHEST ONE VIEW, PORTABLE ([id number]) IMPRESSION: Bilateral lower lobe pneumonia. Small bilateral parapneumonic effusions. Dictated by: George Garcia M.D. on 01/28/2017 at 9:24 Approved by: George Garcia M.D. on 01/28/2017 at 9:25 Cardiac Echo Impression Echocardiogram Report Interpretation Summary The left ventricle is normal in size. Left ventricular systolic function is borderline reduced. The ejection fraction is estimated to be 50-55%. There has been no significant change since the previous study. There is hypokinesis along the basal to mid inferior wall and akinesis along the basal to mid anterolateral and inferolateral wall. LV wall motion has not changed significantly. Assessment of diastolic parameters indicates a restrictive filling pattern of the left ventricle consistent with significantly elevated filling pressures. Diastolic function has decreased since prior echo study. The right ventricle is normal size. Right ventricular systolic function is borderline reduced. Pulmonary artery pressures cannot be estimated because of the lack of a measurable TR jet velocity. The left atrium is moderately dilated. Right atrial size is normal. There is no significant valvular heart disease. The aortic root is normal size. There are moderate-sized bilateral pleural effusions noted. Reading Physician:GABRIELA Invasive Procedures DIAGNOSTIC CARDIAC CATHETERIZATION PATIENT: NAZIA STEVEN : 1955 MR#: [id number] ADMIT: 01/27/2017 JOB ID: [id number] SERVICE DATE: 01/31/2017 PATIENT PROFILE: The patient is a 61-year-old male with history of diabetes, hypertension, hyperlipidemia. He has chronic kidney disease, stage IV. The patient presented with non ST elevated myocardial infarction. PROCEDURE: 1. Retrograde left heart catheterization. 2. Selective coronary angiography. VASCULAR CLOSURE DEVICE: Perclose. COMPLICATION: None. METHOD: Retrograde left heart catheterization was performed from the right groin under 1% lidocaine local anesthesia using a 6-Pashto sheath. Selective coronary angiogram was performed in multiple projections, including cranial caudal angulations with hand injected contrast via JL4 and 3DRC catheters. A 5-Pashto angulated pigtail catheter was advanced to the left ventricle and left ventricular pressure was obtained. Right femoral angiogram was performed. Following sheath removal, hemostasis was achieved by using a Perclose device. The patient tolerated the procedure well. He was transferred to ICU in good condition. TOTAL CONTRAST USED: 25 cc. FLUOROSCOPY TIME: 0.7 minutes. TOTAL RADIATION DOSE: 285 mGy. RESULTS: 1. Selective coronary angiogram: a. Left main coronary artery is calcified and has minor irregularity. b. The left anterior descending artery is transapical with heavy tubular calcification throughout the entire artery with diffuse irregularity and 70%-80% stenosis in the mid to distal portion. All diagonal branches are quite small and have diffuse disease. c. The circumflex artery has 95% stenosis in the mid portion with heavy calcification. The obtuse marginal branches are quite small and have diffuse disease. d. The dominant right coronary artery is heavily calcified and has diffuse disease of 50%-70% stenosis. 2. Aortic pressure is 157/75 mmHg. Left ventricular pressure is 157/9 mmHg. 3. Left ventricular end-diastolic is 43 mmHg. CONCLUSION: 1. Heavily calcified coronary arteries with diffuse disease. 2. Small vessel disease. 3. LVEDP is 43 mmHg. PLAN: Conservative medical management. His anatomy is not too suitable for percutaneous coronary intervention or coronary bypass surgery. Madhuri Eckert MD 01/31/17 0171 Brief History 61 yo M h/o diabetes, HTN, stage 4 CKD, and CAD admitted with NSTEMI. Patient states that he is relatively active at home at his baseline, including doing yard work. Over the past 2 weeks, patient started having chest pain and shortness of breath with exertion. This has progressively gotten worse to the point that she cannot even get out of bed. He came to [facility] emergency room for evaluation and management. Yesterday, he received IV furosemide 40 mg once and had a reasonable urine for about a liter. He felt a little better. Today, his dyspnea has gotten progressively worse again. His diuretics were stopped due to slight increase in his creatinine. Patient's other symptoms include lightheadedness with this chest discomfort, fatigue, and occasional nausea. Denies palpitations, syncope, vomiting, fevers , or chills. Hospital Course 61 y/o male with DM2 insulin-using, hypertension, hyperlipidemia, CAD s/p catheterization in 2007, and CKD stage 3 who presented to the ED via EMS c/o SOB and admitted for further evaluation and treatment of possible community pneumonia, CHF exacerbation and possible NSTEMI. 1. Acute CHF exacerbation secondary to diastolic dysfunction, present on admission. improving. -Echo on 08/21/2016 showed mild-moderate LVH, EF 50-55%, grade 2 diastolic dysfunction. -echo show normal LV function but increased diastolic dysfunction -dc home, weigh yourself daily and take those weights to your doctors office -I have increased the lasix from 20 to 40 daily 2.Acute NSTEMI, present on admission, improving -Pt w/hx of prior NSTEMI, CAD s/p catheterization in 2007. -Continue home statin, aspirin, plavix, lipitor -IV heparin discontinued -heart cath, not candidate for stent or CABG -maximize medical management (statin, asa, plavix, b princess) 3. Acute on chronic kidney injury, present on admission. improving. -base line creatinine runs 2 to 3 -Pt w/ CKD stage 4, Is/It Project Manager- Dr. Rainey. -creatinine better today 3.75 4. Chronic diabetes mellitus type 2, insulin-using, present on admission. Active -Last A1c 7.3 on 08/21/16. Serum glucose on admission 122 -Home insulin regimen: Insulin Glargine 40 UNITS SQ AM; Humalog 12-22 unitics bid AC 5. Chronic Hypertension, present on admission. Active. -BP on admission, 150s-170s/70s-90s. -Continue home dosing amlodipine, metoprolol 6- Chronic hyperlipidemia, present on admission. Presumed stable. -Continue home statin. 8. Possible community acquired pneumonia, present on admission. never had pneumonia -given antibiotic in ER, then not continued. -in retrospect patient did not have pneumonia - Acetaminophen as needed for mild pain/fever/headache - Bowel regimen as needed - Antiemetic as needed Patient is admitted under inpatient status with expected length of stay greater than 2 midnights due to severity of presenting symptoms, risk of adverse event, and complexity of treatment plan. Exam Vital Signs (Last) Date Time Temp Pulse Resp B/P Pulse Ox O2 Delivery O2 Flow Rate FiO2 02/02/17 10:18 36.8 52 18 129/72 98 Room Air 02/01/17 05:58 21 01/27/17 17:52 4.00 Exam Eyes; jacques, eom intact ENMT; good hydration, no lesions CV; S1S2 present with soft systolic murmur, no obvious JVD, minimal edema today Resp; decreased breath sounds bases, coarse breath sound GI: soft, non-acute benign, non tender Skin; no rashes, dry Neuro; 2-12 intact no motor defects Looks good ambulating off O2 in the room with no difficulty Test 01/27/17 03:10 01/27/17 03:15 01/27/17 04:20 01/27/17 15:46 Hemoglobin A1c 6.9% (4.8-5.6) Total Bilirubin 0.8mg/dL (0.0-1.2) Aspartate Amino Transf (AST/SGOT) 29U/L (0-50) Alanine Aminotransferase (ALT/SGPT) 26U/L (0-44) Alkaline Phosphatase 101U/L (25-160) Total Protein 8.0g/dL (6.4-8.4) Albumin 4.1g/dL (3.4-5.0) Magnesium Level 2.4mg/dL (1.6-2.6) Hold [place] Top Tube Received (Received) Urine Color Yellow (YELLOW) Urine Appearance Clear (CLEAR,HAZY) Urine pH 5.0 (5.0-8.0) Urine Specific Dowell 1.025 (1.003-1.035) Urine Protein 100mg/dL (NEG,TRACE) Urine Glucose (UA) 250mg/dL (NEGATIVE) Urine Ketones Negativemg/dL (NEGATIVE) Urine Occult Blood Moderate (NEGATIVE) Urine Nitrite Negative (NEGATIVE) Urine Bilirubin Negative (NEGATIVE) Urine Urobilinogen Normalmg/dL (NORMAL) Urine Leukocyte Esterase Negative (NEGATIVE) Urine RBC 3-10/hpf (0-2) Urine WBC 0-5/hpf (0-5) Urine Epithelial Cells Few/hpf (NONE-MOD) Urine Crystals Amorphous urates (NONE Urine Bacteria Few/hpf (NONE-FEW) Urine Hyaline Casts None/lpf (NONE) Urine Granular Casts None seen (NONE SEEN) Urine Waxy Casts None seen (NONE SEEN) Urine Red Blood Cell Casts None seen (NONE SEEN) Urine White Blood Cell Casts None seen (NONE SEEN) Urine Mucus None seen (None Seen) Urine Trichomonas None seen (NONE SEEN) Urine Yeast None (NONE SEEN) Urinalysis Comment None Urine Culture Reflexed Not indicated Test 01/28/17 06:25 01/29/17 06:35 01/29/17 11:10 02/01/17 05:36 Pro-B-Type Natriuretic Peptide 1479pg/mL (0-210) Procalcitonin 0.16ng/mL (0.00-0.08) White Blood Count 7.1th/mm3 (3.8-10.1) Red Blood Count 4.31mil/mm3 (4.40-5.80) Mean Corpuscular Volume 85.6fL (81-100) Mean Corpuscular Hemoglobin 28.3pg (27.0-35.0) Mean Corpuscular Hemoglobin Concent 33.1% (32.0-37.0) Red Cell Distribution Width 14.4% (12.3-15.4) Platelet Count 218bil/L (150-400) Neutrophils (%) (Auto) 63.0% (40-74) Lymphocytes (%) (Auto) 22.4% (14-46) Monocytes (%) (Auto) 7.3% (4-12) Eosinophils (%) (Auto) 6.9% (0-5) Basophils (%) (Auto) 0.1% (0-3) Phosphorus Level 5.1mg/dL (2.5-4.9) Total Creatine Kinase 364U/L (21-232) Troponin T 0.829ug/L (0.0-0.011) Vitamin D 25-Hydroxy 31.9ng/mL (30.0-100.0) Parathyroid Hormone (Intact) 99pg/mL (15-65) Hemoglobin 12.6g/dL (13.8-17.2) Hematocrit 38.1% (41.0-50.0) Activated Partial Thromboplast Time 26.2sec (22.8-33.0) Test 02/02/17 06:46 Sodium Level 137mEq/L (134-144) Potassium Level 5.2mEq/L (3.5-5.2) Chloride Level 104mEq/L (97-108) Carbon Dioxide Level 17mmol/L (18-29) Blood Urea Nitrogen 48mg/dL (8-27) Creatinine 3.80mg/dL (0.76-1.27) Estimat Glomerular Filtration Rate 17mL/min (>59) Glucose Level 102mg/dL (60-99) Calcium Level 9.3mg/dL (8.5-10.1) Microbiology Results Blood cultures- negative to date Viral Nasal PCR negative Discharge Medications Discharge Medications Amlodipine (Amlodipine) 5 Mg Tablet 5 MG PO BID (Reported) Aspirin (Aspirin) 81 Mg Tablet 81 MG PO DAILY (Reported) Atorvastatin (Lipitor) 40 Mg Tablet 40 MG PO HS (Reported) Calcitriol (Rocaltrol) 0.25 Mcg Capsule 0.5 MCG PO DAILY (Reported) Cholecalciferol (Vitamin D3) (Vitamin D3) 2,000 Unit Capsule 2,000 UNIT PO DAILY (Reported) Clopidogrel (Clopidogrel) 75 Mg Tablet 75 MG PO DAILY Prescribed by: BREA RAMIREZ DO Furosemide (Lasix) 40 Mg Tablet 40 MG PO DAILY Prescribed by: Julia MELO MD Insulin Glargine (Lantus U100 Solostar Insulin Pen) 100 Unit/1 Ml Insuln.pen 45 UNITS SQ HS (Reported) Insulin Lispro (HumaLOG U100 Insulin Pen) 100 Unit/1 Ml Insuln.pen SQ BIDWM ( Reported) 18-22 units subcutaneous route two times a day with meals for diabetes Metoprolol Tartrate (Metoprolol Tartrate) 25 Mg Tablet 50 MG PO BID (Reported) Followup Plan Follow-up plan Follow up with Dr. Brandin low. Also follow up with you primary care provider. Discharge Diet: Low fat, Low Sodium Discharge Activity: Limited until seen by PCP Patient Instructions Weigh yourself every morning nd lópez down the weight on your John, you can adjust you diuretic to keep you weight stable. Take these weights to you doctors office so he can review. Follow-up with PCP in: 1 week Time spent I spent 40 minutes time discharging patient today, current time is 11:57 am. copies to: Carla Rainey MD; Aaron Woods MD, D Geoffrey MD Feb 02, 2017 11:51
[2017-02-02] MEDS ORDERED: FURO-128 PO (11:55)
--- NOTE | 2017-02-02 12:00 | NUR ---
Social Work - Discharge Data: Pt is on day 6 of hospitalization for RLL community acquired pneumonia. EMR reviewed. Pt has been medically cleared to discharge and is up and independent in room. SW met with pt to confirm plan to discharge home via family.No d/c planning needs anticipated at this time. Assessment: Pt who is independent at baseline. Plan: Pt will d/c home via POV. No d/c planning needs anticipated at this time. DALJIT Mulligan
--- NOTE | 2017-02-02 12:04 | PCM.PNNEPH ---
Subjective Date of Service Feb 02, 2017 Subjective Patient continues to improve. Offers no new complaints and denies any chest pain, shortness of breath, nausea or vomiting. His blood pressures are good and his intake and output last 24 hours shows 1276 in and 1450 out. This morning his sodium is 137, potassium 5.2, chloride of 104, bicarbonate of 17 and his creatinine is 3.8. Exam Vital Signs Vital Sign - Last Date Time Temp Pulse Resp B/P Pulse Ox O2 Delivery O2 Flow Rate FiO2 02/02/17 10:18 36.8 52 18 129/72 98 Room Air 02/01/17 05:58 21 01/27/17 17:52 4.00 Intake and Output 02/01/17 02/01/17 02/02/17 Cumulative From/Thru 15:00 23:00 07:00 01/27/17 03:11 - 02/02/17 04:48 Intake Total 876 ml 350 ml 48357 ml Output Total 500 ml 500 ml 56556 ml Balance 376 ml -150 ml 4 ml Intake Oral 876 ml 350 ml 9551 ml IV Total 2978 ml Output Urine Total 500 ml 500 ml 09979 ml Urine/Stool Mix 250 ml # Bowel Movements 1 8 Exam HEENT examination is remarkable for pale sclera. Lungs are somewhat diminished. Heart is regular and rhythmical with a soft systolic murmur. Abdomen soft without any tenderness rebound guarding masses or hepatosplenomegaly. Extremities show any evidence of any clubbing cyanosis or edema. Lab and Diagnostics Result Diagram: 02/01/17 0536 02/02/17 0646 Microbiology Blood cultures- negative to date Viral Nasal PCR negative X-Rays, CTs and MRIs X-RAY CHEST ONE VIEW, PORTABLE ([id number]) IMPRESSION: Bilateral lower lobe pneumonia. Small bilateral parapneumonic effusions. Dictated by: George Garcia M.D. on 01/28/2017 at 9:24 Approved by: George Garcia M.D. on 01/28/2017 at 9:25 Cardiac Echo Impressions Echocardiogram Report Interpretation Summary The left ventricle is normal in size. Left ventricular systolic function is borderline reduced. The ejection fraction is estimated to be 50-55%. There has been no significant change since the previous study. There is hypokinesis along the basal to mid inferior wall and akinesis along the basal to mid anterolateral and inferolateral wall. LV wall motion has not changed significantly. Assessment of diastolic parameters indicates a restrictive filling pattern of the left ventricle consistent with significantly elevated filling pressures. Diastolic function has decreased since prior echo study. The right ventricle is normal size. Right ventricular systolic function is borderline reduced. Pulmonary artery pressures cannot be estimated because of the lack of a measurable TR jet velocity. The left atrium is moderately dilated. Right atrial size is normal. There is no significant valvular heart disease. The aortic root is normal size. There are moderate-sized bilateral pleural effusions noted. Reading Physician:GABRIELA Plan Impression Impression #1 stage V kidney disease number to diabetic nephropathy #3 hypertension with hypertensive heart disease and hypertensive nephrosclerosis for anemia secondary to chronic kidney disease Recommendations #1 from my point of view he will be discharged today with recommendations to follow up with nephrology in a month. Most likely he would need to be continued on his erythropoietin. Burak Herrera DO Feb 02, 2017 12:04
--- NOTE | 2017-02-02 13:50 | NUR ---
Discharge Patient discharge to home with all belongings at 1252. Explained to patient new medications (Lasix), when next medications are due and discharge instructions. Patient verbalized understanding. Dc'd IV intact x2. Dc'd telemetry. Vitals stable. Patient left floor via wheelchair accompanied by daughter and REHAB THERAPY MANAGER with no signs of distress.
[2017-03-14] MEDS ORDERED: NITR0.4T SL (10:04)
[2017-03-14] MEDS ORDERED: SODI650T PO (10:04)
== END 2017-02-02 12:52 | disposition home or self-care (01) | DRG 280 ==
LOC: SED 03:03 → MPC 05:00
PROVIDERS: ADMIT Internal Medicine; ATTEND Internal Medicine
PROC: 4A023N7 Measurement of Cardiac Sampling and Pressure, Left Heart, Percutaneous Approach (ICD-10-PCS; principal; 2017-01-31)
PROC: B2111ZZ Fluoroscopy of Multiple Coronary Arteries using Low Osmolar Contrast (ICD-10-PCS; 2017-01-31)
DX: I21.4 Non-ST elevation (NSTEMI) myocardial infarction (principal); I50.33 Acute on chronic diastolic (congestive) heart failure; N17.0 Acute kidney failure with tubular necrosis; I13.2 Hypertensive heart and chronic kidney disease with heart failure and with stage 5 chronic kidney disease, or end stage renal disease; N18.5 Chronic kidney disease, stage 5; Z79.4 Long term (current) use of insulin; Z87.891 Personal history of nicotine dependence; E11.40 Type 2 diabetes mellitus with diabetic neuropathy, unspecified; E11.319 Type 2 diabetes mellitus with unspecified diabetic retinopathy without macular edema; E78.5 Hyperlipidemia, unspecified; I25.10 Atherosclerotic heart disease of native coronary artery without angina pectoris; G47.33 Obstructive sleep apnea (adult) (pediatric)

== ENCOUNTER 2017-03-19 12:50 | Day surgery (SDC) | payer MEDICARE ==
--- NOTE | 2017-03-14 14:24 | PCM.ANEPRE ---
Anesthesia Pre-Op Review Reason for Review: CARDIAC HX/PNEUMONIA 01/2017 Additional Comments 61 year old male with history of DM, HTN, stage 4 kidney disease, and CAD scheduled for right arm AV fistula creation. He was admitted to hospital for non-STEMI, CHF,and pneumonia. Echocardiogram 01/28/2017 shows LVEF = 50-55 % with some diastolic dysfunction. Cardiac cath 01-31-17 significant stenosis not amenable to stenting and/or bypass. No further cardiac testing would be beneficial. He is at above average risk of niyah-operative ischemia (NSQIP estimates 0.6%) but no additional treatment will improve suitability. Surgery may be performed under MAC with local anesthesia pending update exam by anesthesiologist on DOS, Chart Reviewed by: Joshua Oakes MD March 14, 2017 14:24
[~2017-03-19] VITALS: Ht 170.2 cm; Wt 89.5 kg
[~2017-03-19 12:50] MED LIST changes: +0.9% Sodium Chloride 500 ML IV SCH; +CHOL200047 PO; +Dexamethasone 4 mg/mL Inj IVPUSH PRN; +EPHEDrine Sulfate 50 mg/mL Inj IVPUSH PRN; +HYDROmorphone 1 mg/mL Inj IVPUSH PRN; +LIP40 PO; +Labetalol 5 mg/mL 4 mL Inj IV PRN; +Lactated Ringer's 1,000 ML IV SCH; +Lactated Ringer's 500 ML IV PRN; +MetoCLOpramide 5 mg/mL 2 mL Inj IVPUSH PRN; +NITR0.4T SL; +Ondansetron 2 mg/mL 2 mL Inj IVPUSH PRN; +Phenylephrine 10,000 mCg/mL Inj IVPUSH PRN; -SIMV40TA5 PO; +SODI650T PO; +fentaNYL-PF 50 mCg/mL 2 mL Inj IVPUSH PRN; +hydrALAZINE 20 mg/mL Inj IVPUSH PRN
[2017-03-19 13:25] VITALS: BP 153/86; PULSE 58; RESP 16; O2SAT 98
[2017-03-19] MEDS ORDERED: Dextrose 10% 250 ML IV ONE (15:00)
== END 2017-03-19 23:59 | disposition home or self-care (01) ==
LOC: SAS 12:50
PROVIDERS: ATTEND Surgery
DX: N18.4 Chronic kidney disease, stage 4 (severe) (principal); Z53.8 Procedure and treatment not carried out for other reasons

== ENCOUNTER 2017-04-01 12:33 | Day surgery (SDC) | payer MEDICARE ==
[~2017-04-01] VITALS: Ht 170.2 cm; Wt 86.8 kg
[~2017-04-01 12:33] MED LIST changes: -Dexamethasone 4 mg/mL Inj IVPUSH PRN; -EPHEDrine Sulfate 50 mg/mL Inj IVPUSH PRN; -HYDROmorphone 1 mg/mL Inj IVPUSH PRN; -Labetalol 5 mg/mL 4 mL Inj IV PRN; -Lactated Ringer's 1,000 ML IV SCH; -Lactated Ringer's 500 ML IV PRN; -MetoCLOpramide 5 mg/mL 2 mL Inj IVPUSH PRN; -Ondansetron 2 mg/mL 2 mL Inj IVPUSH PRN; -Phenylephrine 10,000 mCg/mL Inj IVPUSH PRN; -fentaNYL-PF 50 mCg/mL 2 mL Inj IVPUSH PRN; -hydrALAZINE 20 mg/mL Inj IVPUSH PRN
[2017-04-01] MEDS ORDERED: Dexamethasone 4 mg/mL Inj ONE (12:34)
[2017-04-01] MEDS ORDERED: fentaNYL-PF 50 mCg/mL 2 mL Inj ONE (12:34)
[2017-04-01] MEDS ORDERED: Propofol 10,000 mCg/mL 20 mL Inj ONE (12:34)
[2017-04-01] MEDS ORDERED: Dextrose 10% 250 ML IV ONE (13:25)
[2017-04-01] MEDS ORDERED: Dextrose 10% 250 ML IV SCH (13:30)
[2017-04-01 13:50] VITALS: BP 138/73; PULSE 60; RESP 16; O2SAT 97
[2017-04-01] MEDS ORDERED: 0.9% Sodium Chloride 250 ML IV PRN (15:38)
[2017-04-01] MEDS ORDERED: Atropine 0.4 mg/mL Inj IVPUSH PRN (15:40)
[2017-04-01] MEDS ORDERED: Labetalol 5 mg/mL 4 mL Inj IV PRN (15:40)
[2017-04-01] MEDS ORDERED: EPHEDrine Sulfate 50 mg/mL Inj IVPUSH PRN (15:40)
[2017-04-01] MEDS ORDERED: Bupivacaine 0.5% 50 mL Inj INFILTRATE ONE (15:40)
[2017-04-01] MEDS ORDERED: Heparin 1,000 Unit/mL 10 mL Inj IRRIGATION ONE (15:40)
[2017-04-01] MEDS ORDERED: fentaNYL-PF 50 mCg/mL 2 mL Inj IVPUSH PRN (15:40)
[2017-04-01] MEDS ORDERED: Phenylephrine 10,000 mCg/mL Inj IVPUSH PRN (15:40)
--- NOTE | 2017-04-01 15:40 | PCM.HPANE ---
Patient Data Surgeon Admitting Provider: Attending Provider:Ayana Berry MD Primary Care Physician:Aaron Woods MD Other Provider:Temi Rosasingham Anesthesia Reason for Visit Chronic Kidney Disease Ht/WT & BMI Height (Feet): 5 Height (Inches): 5 Weight (Kilograms): 89.5 Body Mass Index 32.00 Allergies Coded Allergies: lisinopril (Verified Adverse Reaction, Severe, cough, 03/14/17) Uncoded Allergies: DAIRY (Adverse Reaction, Severe, DIARRHEA, 03/14/17) Past Anesthesia History Anesthesia History: Denies:: Abnormal Airway, Anesthesia Reactions, Difficult Intubation, Fam Anesthesia Reaction, Fam Malignant Hypertherm, Malignant Hyperthermia Diabetes History Hx Diabetes?: Yes Type of Diabetes: Type II Glycemic Control: Insulin Dependent MRSA MRSA: No Medications Blood Thinner: Aspirin, Plavix Active Scripts Furosemide (Lasix)40 Mg [id number] Mg PO DAILY #60 TABLET Ref 0 Prov:Julia Melo MD 02/02/17 Clopidogrel 75 Mg [id number] Mg PO DAILY #30 TABLET Prov:BREA RAMIREZ DO 08/23/16 Reported Medications Sodium Bicarbonate 650 Mg Tablet1,300 Mg PO BID 03/14/17 Nitroglycerin SL (Nitrostat)0.4 Mg Tab.subl0.4 Mg SL Q5MIN PRN CHEST PAIN #1 BOTTLE 03/14/17 Atorvastatin (Lipitor)40 Mg [id number] Mg PO HS Ref 0 01/27/17 Cholecalciferol (Vitamin D3) (Vitamin D3)2,000 Unit Capsule2,000 Unit PO DAILY 01/27/17 Calcitriol (Rocaltrol)0.25 Mcg Capsule0.5 Mcg PO DAILY #30 08/21/16 Aspirin 81 Mg [id number] Mg PO DAILY Ref 0 08/21/16 Insulin Lispro (HumaLOG U100 Insulin Pen)100 Unit/1 Ml Insuln.pen Sq Bidwm #30 18-22 units subcutaneous route two times a day with meals for diabetes 08/21/16 Insulin Glargine (Lantus U100 Solostar Insulin Pen)100 Unit/1 Ml Insuln.pen45 Units SQ HS #15 08/21/16 Metoprolol Tartrate 25 Mg Ayrjya86 Mg PO BID #60 08/21/16 Amlodipine 5 Mg Tablet5 Mg PO BID #30 08/21/16 History History of ENT Problems?: Yes HEENT History: Positive for:: Cataracts (bilateral) Sinus Problem Denies:: Abnormal Airway Difficult Intubation Dysphagia Glaucoma Hearing Problem TMJ Denture Type: None Teeth Condition: Within Normal Limits Hx of Heart Problems?: Yes Cardiovascular History: Positive for:: Cardiac Surgery (S/P HEART CATH 02/2008 , 01/2017) Chest Pain Congestive Heart Failure Coronary Artery Disease (s/p NSTEMI) Edema (ankles) Hypertension (HYPERLIPIDEMIA) Denies:: AICD Abdominal Aortic Aneurism Atrial Fibrillation Heart Murmur (ECHO 01/2017 EF 50-55%) Irregular Heartbeat Pacemaker Peripheral Vascular Rheumatic Fever Thrombophlebitis Valvular Heart Disease Hx of Respiratory Problem?: Yes Respiratory History: Positive for:: Dyspnea (R/T CHF) Pneumonia Use of C-PAP Machine (DARRICK+ SLEEP STUDY 12/2016 ??CPAP) Denies:: Asthma COPD Chest Surgery Cough Emphysema Hemoptysis Oxygen Administration Pulmonary Embolism Tuberculosis Use of Inhalers / NEBS Hx Neurologic Problems?: Yes Neurological History: Positive for:: Dizziness Denies:: Alzheimer's Disease CVA Dementia Headaches Multiple Sclerosis Parkinson's Disease Peripheral Neuropathy Seizures TIA Hx of GI Problems?: Yes Gastrointestinal History: Denies:: Cirrhosis Diverticulitis Gall Bladder Disease Gastroesphageal Reflux Gastrointestinal Bleeding Heartburn Hepatitis Hiatal Hernia Liver Disease Rectal Bleeding Hx of Problems?: Yes Genitourinary History: Denies:: HX of Hemodialysis (STAGE 4 CKD/DIALYSIS ACCESS=CURRENT PROBLEM SEES DR. SHEFFIELD) Kidney Stones Urinary Tract Infection HX of Peritoneal Dialysis: No Male Hx: Positive for:: Prostate Problems (BPH) Denies:: Scrotal Mass Testicular Surgery Skin History: Denies:: History Skin Disorders? Pressure Ulcers Hx Musculoskeletal Problems?: Yes Musculoskeletal History: Positive for:: Back Injury ("sprained my back a couple weeks ago") Musculoskeletal Trauma (S/P I&D ABCESS TOES) Denies:: Degenerative Joint Fibromyalgia Joint Replacement Myasthenia Gravis Osteoarthritis Rheumatoid Arthritis Systemic Lupus Hx of Psycho/Social Problems?: Yes Psycho Social History: Positive for:: Anxiety Hx Depression Denies:: Bipolar Disorder Suicide Attempt Hx Surgeries?: Yes (HEART CATH X2 [id number],I&D ABCESS TOES,KIDNEY BX) Hx Any Other Health Problems?: Yes Other History: Positive for:: Hospitalization (HEART CATH 01/2017/PNEUMONIA) Denies:: Cancer Endocrine Disease Thyroid Disease History Blood Transfusions: Denies:: Blood Transfuse Reaction Blood Transfusions Hx Diabetes: Yes Hx Alcohol Use: Yes (QUIT 1983)Hx Substance Use: No Smoking Status: Former Smoker Have You Smoked inLast 12 mo: No Stop/Bang B- Body Mass Index > 35 kg/m2: No A- Age over 50: Yes N- Neck Large Circumference: No G- Gender Male: Yes Risk Assessment Category Category 1A: Patient has history of documented sleep apnea, and HAS NOT received any narcotic, sedative or anesthesia administration during this stay. Category 1B: Patient has history of documented sleep apnea, and HAS received any narcotic , sedative or anesthesia administration during this stay Category 2: Patient has SUSPECTED Obstructive Sleep Apnea, and HAS received any narcotic , sedative or anesthesia administration during this stay. Category 3: Patient has SUSPECTED Obstructive Sleep Apnea and HAS NOT received narcotic, sedative or anesthesia administration during this stay. Category 4: Outpatient in Procedural Areas with known sleep apnea or who screen positive for High Risk via the STOP/BANG questionnaire. Exam Exam General Appearance: Alert, Oriented X3, Cooperative, No Acute Distress HEENT/AIRWAY: MP 2, Neck Movement (FROM), Mouth Opening (3 FBMO) Lungs: Clear to Auscultation, Normal Air Movement Heart: Exam Unremarkable, Regular Rate/Rhythm, No Murmurs/Rubs/Gallops Plan Impression Patient chart reviewed, patient interviewed and anesthestic plan with risks, benefits, and alternatives discussed, and informed consent obtained. NPO per Anesth. Guidelines: Yes ASA Physical Status: ASA4 Life Threatening Anesthetic Plan: GA, MAC Bene/Risks/Altern/Consents: Yes HP Complete Prior to Induction: Yes Luis E Lord MD Apr 01, 2017 13:15
[2017-04-01] MEDS ORDERED: Papaverine 30 mg/mL 2 mL Inj IV ONE (15:53)
[2017-04-01 17:50] VITALS: BP 99/62; PULSE 44; RESP 14; O2SAT 99
[2017-04-01 17:55] VITALS: BP 117/66; PULSE 46; RESP 14; O2SAT 98
[2017-04-01] MEDS ORDERED: oxyCODONE-Acetamin 5-325 mg Tablet PO PRN (17:55)
--- NOTE | 2017-04-01 17:56 | PCM.ANEP1 ---
Post Anesthesia PACU Phase 1 Assessment Vital Signs Vital Signs Date Time Temp Pulse Resp B/P Pulse Ox O2 Delivery O2 Flow Rate FiO2 04/01/17 13:50 36.6 60 16 138/73 97 Room Air Anesthetic Administered: GA, MAC Level of Alertness: Awake, talking ASHLEY's with Equal Strength: Yes Pain: No Nausea or Vomiting: No CV Function & Hydration Stable: Yes Airway Device: Oxygen Delivery: Room Air Lungs: Clear to Auscultation, Normal Air Movement Dermatome Level: Full Sensation PACU Phase 2 Assessment Complications: No Follow up Care: N/A Patient Instructions Provided: N/A Luis E Lord MD Apr 01, 2017 17:56
[2017-04-01 18:30] VITALS: BP 115/64; PULSE 48; RESP 16; O2SAT 96
[2017-04-01 19:00] VITALS: BP 115/65; PULSE 52; RESP 16; O2SAT 95
--- NOTE | 2017-04-01 23:51 | OP ---
[address] [address] OPERATIVE REPORT PATIENT: NAZIA STEVEN : 1955 MR#: [id number] ADMIT: 04/01/2017 JOB ID: [id number] DATE OF SURGERY: 04/01/2017 Entered in error. [facility]
--- NOTE | 2017-04-02 00:03 | OP ---
[address] [address] OPERATIVE REPORT PATIENT: NAZIA STEVEN : 1955 MR#: [id number] ADMIT: 04/01/2017 JOB ID: [id number] DATE OF SURGERY: 04/01/2017 PREOPERATIVE DIAGNOSIS(ES): End-stage renal disease secondary to diabetic nephropathy, not yet on dialysis. POSTOPERATIVE DIAGNOSIS(ES): End-stage renal disease secondary to diabetic nephropathy, not yet on dialysis. PROCEDURE PERFORMED: Left radiocephalic (Alexey) fistula. SURGEON: Ayana Berry MD MOTH PROOFER: Torsten Woods MD; Sarai Mota MS3 HISTORY OF PRESENT ILLNESS: This is a 62-year-old man with progressively declining renal function and a GFR of less than 25 mL/minute. Due to his progressive nephropathy and likely need for dialysis in the near future, arteriovenous fistula creation was recommended. Of note, the patient had a non-ST elevation MN in January 2017. He underwent a thorough cardiac evaluation, was found to have diffuse coronary artery disease, not amenable to percutaneous intervention or bypass, and therefore the recommendation was made by his master coastwise yacht to proceed with surgery given the progression of his nephropathy. FINDINGS: Adequate right radial and right cephalic vein to create a sizable anastomosis with good thrill at the end of the case. DESCRIPTION OF PROCEDURE: The patient was brought to the operating room and placed in supine position. Moderate anesthesia was induced. A warming blanket and SCDs were placed. The operative field was prepped and draped in sterile fashion. Preop pause was performed to confirm the correct patient, procedure, site, and side. A longitudinal incision was made just lateral to the right radial artery, 4 cm in length. The artery was easily identified and the dissection proceeded in order to identify the right cephalic vein, which was found to be large enough to create an adequate fistula. The vein was dissected proximally and distally, as was the artery. The radial artery had a small branch, and vessel loops were placed around the branch and the proximal and distal ends of the main artery. The distal end of the vein was tied off and the vein was brought over and there was significant laxity in the vein. An arteriotomy was created and the ends of the artery and vein were flushed with heparinized saline. An anastomosis was created from the side of the artery to the end of the vein using a running 6-0 Prolene suture. The anastomosis itself was approximately 1.5 cm in length. A single additional stitch was placed near the knot at the end of the case to control a small leak. There was a good thrill and pulsatile flow on Doppler at the end of the case through the anastomosis. The skin was closed with a running 4-0 Vicryl stitch. Dermabond was placed. A Doppler was used to listen for a bruit at the end of the case, which was present. The patient was awakened from moderate sedation and taken to the post procedure unit in good condition. ESTIMATED BLOOD LOSS: 5 mL. COMPLICATIONS: None. SPECIMENS: None.
== END 2017-04-01 23:59 | disposition home or self-care (01) ==
LOC: SAS 12:33
PROVIDERS: ATTEND Surgery
DX: I13.0 Hypertensive heart and chronic kidney disease with heart failure and stage 1 through stage 4 chronic kidney disease, or unspecified chronic kidney disease (principal); E11.22 Type 2 diabetes mellitus with diabetic chronic kidney disease; N18.4 Chronic kidney disease, stage 4 (severe); I50.9 Heart failure, unspecified; I25.10 Atherosclerotic heart disease of native coronary artery without angina pectoris; E78.5 Hyperlipidemia, unspecified; E11.21 Type 2 diabetes mellitus with diabetic nephropathy; I25.2 Old myocardial infarction; G47.33 Obstructive sleep apnea (adult) (pediatric); F41.8 Other specified anxiety disorders; Z87.891 Personal history of nicotine dependence; Z79.4 Long term (current) use of insulin; Z79.82 Long term (current) use of aspirin; Z79.02 Long term (current) use of antithrombotics/antiplatelets; Z95.5 Presence of coronary angioplasty implant and graft
CPT/HCPCS: 36818; J0131; J1100; J1644; J3010; J7040

== ENCOUNTER 2017-04-05 00:42 | Inpatient (IN) | payer MEDICARE ==
[~2017-04-05] VITALS: Ht 170.2 cm; Wt 88.5 kg
[2017-04-05] VITALS (16 sets, daily range): BP systolic 115–200; BP diastolic 63–100; PULSE 69–114; RESP 21–45; O2SAT 90–100
[~2017-04-05 00:42] MED LIST changes: -0.9% Sodium Chloride 500 ML IV SCH
--- NOTE | 2017-04-05 00:46 | ED.REPORT ---
HPI-General Illness Date of Service Apr 05, 2017 ED Provider: Suresh Martinez MD The patient is a 62 year old male with a medical history including CAD, DM, hypertension, CHF, CKD stage 4, and recent NSTEMI (01/2017) who presents to the ED via EMS on BiPAP in respiratory distress onset this evening. The patient had been feeling ill for the past few days but became acutely short of breath tonight. He denies chest pain. EMS found the patient with a BP of 155/85, a pulse of 100, a respiration rate in the 50's, and a pulse ox in the low 80's on RA. He is not on home O2. The patient is not yet on dialysis but had a left radiocephalic fistula placed on 04/01/17. His symptoms are similar to his recent CO. History is limited due to patient's respiratory distress. Nursing Notes Stated Complaint: RESPIRATORY DISTRESSED Chief Complaint: Respiratory Distress Nursing Notes Reviewed: Yes Allergies: Coded Allergies: lisinopril (Verified Adverse Reaction, Severe, cough, 04/05/17) Uncoded Allergies: DAIRY (Adverse Reaction, Severe, DIARRHEA, 03/14/17) Scheduled Amlodipine (Amlodipine) 5 Mg Tablet 5 MG PO BID Aspirin (Aspirin) 81 Mg Tablet 81 MG PO DAILY Atorvastatin (Lipitor) 40 Mg Tablet 40 MG PO HS Calcitriol (Rocaltrol) 0.25 Mcg Capsule 0.5 MCG PO DAILY Cholecalciferol (Vitamin D3) (Vitamin D3) 2,000 Unit Capsule 2,000 UNIT PO DAILY Clopidogrel (Clopidogrel) 75 Mg Tablet 75 MG PO DAILY Furosemide (Furosemide) 40 Mg Tablet 40 MG PO BID Insulin Glargine (Lantus U100 Insulin Vial) 100 Unit/Ml Vial 40 UNIT SUBQ HS Metoprolol Tartrate (Metoprolol Tartrate) 25 Mg Tablet 50 MG PO BID Sodium Bicarbonate (Sodium Bicarbonate) 650 Mg Tablet 1,300 MG PO BID Scheduled PRN Nitroglycerin SL (Nitrostat) 0.4 Mg Tab.subl 0.4 MG SL Q5MIN PRN PRN CHEST PAIN Miscellaneous Medications Insulin Aspart (NovoLOG U-100 Pen) 100 Unit/Ml Insuln.pen General Time Seen by MD: 00:41 Chief Complaint Breathing problem Hx Obtained From: EMS Unable to Obtain Hx: Patient condition Arrived By: Ambulance Sudden in Onset?: No Onset Occurred: 3 days ago (Worsening tonight) Symptom Duration: Since onset Location: No: Chest Severity: Current: No pain currently Severity: Maximum: No pain Pertinent Negative: Relieved by nothing Context Related History: Reports Coronary artery disease, Reports Diabetes mellitus Recent Healthcare: Recent doctor visit, Previous surgery Similar Sx Previous: Yes Past Medical History Past Medical History Notes: 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 Rainey PCP: Dr. 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 Hypertension Hyperlipidemia NSTEMI 01/2017 Obesity CHF CKD stage 4 Depression Anxiety Reports: Coronary artery disease, Diabetes mellitus, Hypertension Reports: Renal failure Past Surgical History Cardiac Catheterization in 2007 Kidney biopsy Right toe amputation Family History Several close male relatives with DM2 Sister with breast cancer in remission Smoking History Former Smoker Social History Alcohol Use: "Social" Other Social History: Good social support, Local resident Ambulatory Status Independent Review of Systems Unable to Obtain ROS Patient condition Physical Exam Vital Signs Vital Signs Date Time Temp Pulse Resp B/P Pulse Ox O2 Delivery O2 Flow Rate FiO2 04/05/17 01:15 103 44 192/95 100 BiPAP 04/05/17 01:07 38 100 90 04/05/17 01:00 103 45 200/95 100 BiPAP 04/05/17 00:50 38 190/100 100 BiPAP 15 04/05/17 00:42 37.6 114 44 195/98 90 BiPAP Initial VS: Reviewed Head / Eyes: Atraumatic, Normocephalic ENT: Conjunctiva normal, No scleral icterus Neck: Supple, Full range of motion Abdomen / GI: Soft, Non-tender Skin: Warm, Dry, No cyanosis Neurologic: Alert, Oriented, Nonfocal General/Constitutional: Awake, Alert Distress / Hydration: Positive: Distress moderate Respiratory / Chest: Breath sounds = bilat Resp Distress / Stridor: Positive: Resp distress moderate Wheezing / Retractions: Positive: Accessory muscle use mod Hyperpneic Tachypneic Crackles and bubbling respirations bilaterally Lower Ext Edema: Positive: Bilateral 3+ (Chronic) CARDIOVASCULAR: Heart nearly inaudible due to respiratory sounds Interpretation & Diagnostics Arterial Blood Gas Report: Time: 00:48 pH 7.350 pCO2 35 pO2 303.0 cHCO3 19.1 cBase -5.9 Lab Results Interpretation Result Diagram: 04/05/17 0050 04/05/17 0050 Test 6/10/17 00:50 White Blood Count 13.7th/mm3 (3.8-10.1) Red Blood Count 4.35mil/mm3 (4.40-5.80) Hemoglobin 12.6g/dL (13.8-17.2) Hematocrit 37.3% (41.0-50.0) Mean Corpuscular Volume 85.7fL (81-100) Mean Corpuscular Hemoglobin 29.0pg (27.0-35.0) Mean Corpuscular Hemoglobin Concent 33.8% (32.0-37.0) Red Cell Distribution Width 13.3% (12.3-15.4) Platelet Count 211bil/L (150-400) Neutrophils (%) (Auto) 83.2% (40-74) Lymphocytes (%) (Auto) 7.5% (14-46) Monocytes (%) (Auto) 7.6% (4-12) Eosinophils (%) (Auto) 1.2% (0-5) Basophils (%) (Auto) 0.1% (0-3) Prothrombin Time 13.3sec (8.1-12.5) Prothromb Time International Ratio 1.24ratio Activated Partial Thromboplast Time 25.0sec (22.8-33.0) Prealbumin 27mg/dL (20-40) Procalcitonin 0.16ng/mL (0.00-0.08) ECG Interpretation ECG Interpretation: Sinus tachycardia rate 101 Probable left atrial enlargement Right axis deviation Nonspecific repol abnormality, diffuse leads More acutely ischemic appearance compared to previous 01/28/2017 Time: 00:49 Interpreted by: ED physician X-Ray Chest Interpretation Chest Xray Interpretation: Fluid overload Borderline cardiomegaly Right pleural effusion Increased pulmonary vascular congestion View: Portable, 1 view Interpretation / Wet Read by: Wet read ED physician Re-Eval/Medical Decision Med Decision/Clinical Course 62-year-old with recent non-STEMI presents with vague symptoms over several days, but rapid decline in respiratory status tonight, resulting in his incipient respiratory failure. He is improving on BiPAP after Lasix diuresis, nitroglycerin. His troponin is quite elevated at 0.107, but he has significant renal failure with a BUN/creatinine E5 and a creatinine of 4.47. Much of this is due to renal disease and how much to CO versus strain ischemia is at this point unclear. Hemodynamically he is improving, will require continued BiPAP in the ICU. He is responding to Lasix at this point. He is not grossly acidotic and is not hyperkalemic, and will not require urgent dialysis. Would add metolazone to Lasix if needed for additional response. Admitted now to the medicine service ICU inpatient status. Critical care time thirty minutes Source of Hx: Old records Time of Eval: 01:19 Patient Status: Condition improved Re-Evaluation/Progress Note: Patient's work of breathing has improved significantly. Discussed with patient and his family lab and x-ray results, diagnosis, and plan for admit. Patient agrees with plan for care and all questions were addressed. Consultation : Referral / Consult Name: Mary Smith DO Consulted With: Hospitalist Call Returned at: 01:30 Rest Room Matron: Agrees with eval, Agrees with plan, Accepts admit Counseled Regarding: Diagnosis, Lab results, Need for admission Discharge & Departure Primary Impression: CHF (congestive heart failure) Congestive heart failure type: combined Congestive heart failure chronicity: acute on chronic Qualified Code: I50.43 - Acute on chronic combined systolic (congestive) and diastolic (congestive) heart failure Additional Impression: CRF (chronic renal failure) Chronic kidney disease stage: stage 4 (severe) Qualified Code: N18.4 - Chronic kidney disease, stage 4 (severe) Disposition: ADMITTED TO HOSPITAL Discharge Condition All VS Reviewed: Yes Condition: Critical Referrals: Aaron Woods MD (PCP) Crit Care Except Billable Proc Time Spent: 30-74 minutes Services Performed: Patient management by me, Time spent at bedside, Reviewing test results, Reviewing imaging, Discussing patient care, Documentation in record, Time with fam/surrogate Scribe Attestation Portions of this note were transcribed by Soo Bartlett. I, Dr. Martinez, personally performed the history, physical exam, and medical decision-making; I reviewed and confirmed the accuracy of the information in the transcribed note. Signed by: Aida Pisano, 04/05/2017, 03:10 copies to: Aaron Woods MD, Christopher W MD Apr 05, 2017 00:45 SOO BARTLETT Apr 05, 2017 00:53 Patient Status: Condition improved Re-Evaluation/Progress Note: Patient's work of breathing has improved significantly. Discussed with patient and his family lab and x-ray results, diagnosis, and plan for admit. Patient agrees with plan for care and all questions were addressed. Consultation : Referral / Consult Name: Mary Smith DO Consulted With: Hospitalist Call Returned at: 01:30 Rest Room Matron: Agrees with eval, Agrees with plan, Accepts admit Counseled Regarding: Diagnosis, Lab results, Need for admission Discharge & Departure Primary Impression: CHF (congestive heart failure) Congestive heart failure type: combined Congestive heart failure chronicity: acute on chronic Qualified Code: I50.43 - Acute on chronic combined systolic (congestive) and diastolic (congestive) heart failure Additional Impression: CRF (chronic renal failure) Chronic kidney disease stage: stage 4 (severe) Qualified Code: N18.4 - Chronic kidney disease, stage 4 (severe) Disposition: ADMITTED TO HOSPITAL Discharge Condition All VS Reviewed: Yes Condition: Improved Referrals: Aaron Woods MD (PCP) Crit Care Except Billable Proc Time Spent: 30-74 minutes Services Performed: Patient management by me, Time spent at bedside, Reviewing test results, Reviewing imaging, Discussing patient care, Documentation in record, Time with fam/surrogate Scribe Attestation Portions of this note were transcribed by Soo Bartlett. I, Dr. Martinez, personally performed the history, physical exam, and medical decision-making; I reviewed and confirmed the accuracy of the information in the transcribed note. Signed by: Aida Pisano, 04/05/2017, 03:10 copies to: Aaron Woods MD, Christopher W MD Apr 05, 2017 00:45 SOO BARTLETT Apr 05, 2017 00:53
[2017-04-05] MEDS ORDERED: Nitroglycerin 2% 1 Gm Ointment TOPICAL ONE (00:50)
[2017-04-05] MEDS ORDERED: Furosemide 10 mg/mL 10 mL Inj IVPUSH ONE (00:50)
[2017-04-05 00:57] LABS: BASOPHILS % (AUTO) 0.1 % (0-3); EOSINOPHILS % (AUTO) 1.2 % (0-5); MONOCYTES % (AUTO) 7.6 % (4-12); Mean Corpuscular Volume 85.7 fL (81-100); NEUTROPHILS % (AUTO) 83.2 % (40-74); Platelet Count 211 bil/L (150-400)
--- NOTE | 2017-04-05 00:58 | ABG ---
DateTimeAnalyzed 00:51:53 -_ pH ____7.350 - 7.350 7.450 pCO2 ___34.6__ -mmHg 35.0 45.0 pO2 303 -mmHg 70.0 100 HCO3- ___19.1__ -mmol/L 22.0 26.0 ABE ___-5.9__ -mmol/L -2.0 2.0 tHb ___12.9__ -g/dL 12.0 18.0 O2Hb ___98.7__ -% 95.0 COHb ____2.5__ -% 1.5 MetHb ____0.0__ -% 0.4 1.5 FIO2 ___21.0__ -% CPAP ___15.0__ -cmH2O Drawn By MD - Date/Time Notified____ 00:58:00 -_ Oxygen Device 1 ____BIPAP - Notified By MD - Notified Whom DR CUEVAS - K+ ____3.9__ -mmol/L OrderingPhysicianInitials CR - Aaron test _Positive -
[2017-04-05 01:15] LABS: INR 1.24 ratio
[2017-04-05 01:38] LABS: Magnesium 2.3 mg/dL (1.6-2.6); TROPONIN T 0.107 ug/L (0.0-0.011)
[2017-04-05] MEDS ORDERED: Polyethylene Glycol (PEG) 17 Gm Powder PO PRN (01:50)
[2017-04-05] MEDS: Heparin 5,000 Unit/mL Inj SUBQ SCH ×3 (01:50→17:11)
[2017-04-05] MEDS ORDERED: Ondansetron 2 mg/mL 2 mL Inj IVPUSH PRN (01:50)
[2017-04-05] MEDS ORDERED: Alum-Mag Hydrox-Simeth 30 mL Suspension PO PRN (01:50)
[2017-04-05] MEDS ORDERED: Senna-Docusate 8.6-50 mg Tablet PO PRN (01:50)
[2017-04-05 02:20] LABS: Magnesium 2.3 mg/dL (1.6-2.6)
[2017-04-05] MEDS ORDERED: FURO40TA4 PO (02:30)
[2017-04-05] MEDS ORDERED: INSU100V7 SUBQ (02:32)
[2017-04-05] MEDS ORDERED: INSU100I (02:34)
[2017-04-05] MEDS ORDERED: Glucose 40% Oral Gel 15 Gm Tube PO PRN (03:25)
[2017-04-05] MEDS ORDERED: Dextrose 10% 250 ML IV ONE (03:25)
--- NOTE | 2017-04-05 03:35 | PCM.HPMED ---
Subjective Date of Service Apr 05, 2017 Primary Provider: Admitting Physician: Mary Smith DO Primary Care Physician: Aaron Woods MD Attending Physician: Mary Smith DO Admit Status: From the Emergency Department Chief Complaint: Shortness of breath with dizziness History of Present Illness: Mr. Perez is a 62-year-old male past medical history of DM2, HTN, CAD with recent NSTEMI (01/2017) s/p catheterization without stent placement presented to the ED via EMS secondary to shortness of breath 1 day. Patient states that he has felt ill for the last few days he was at home when he became progressively more short of breath starting this morning. His family activated 911 and EMS reported the patient to have a blood pressure of 155/85 with pulse rate 100 respiratory rate in the 50s with pulse ox in the low 80s on room air. He does not have home O2. He notes he continues to have ability to ambulate, becoming short of breath while walking and now while sleeping requiring him to sleep at a 45 angle, he has been prescribed BiPAP proximally one month ago, and has received a left radiocephalic fistula on 04/01/2017 in anticipation of hemodialysis. He denies chest pain, palpitations, headache, visual changes, nausea/vomiting, fever/chills, pain with respiration, cough, abdominal pain, changes in GI or habits. He does report a shortness of breath and dizziness that is relieved with BiPAP. In the ED patient found to be febrile, tachycardic, tachypneic and hypertensive. O2 saturation sheldon to 100%% on BiPAP. ABGs performed approximately one hour after bicarbonate initiation did not show acidosis, PCO2 34.6 and pH 7.35. Chest x-ray showed pulmonary edema. Lab work significant for leukocytosis, mild anemia, elevated BUN/creatinine, hyperglycemia and a troponin of 0.1 Review of Systems: A comprehensive review of systems was conducted with the patient and found to be negative except as above in the history of present illness. Allergies Coded Allergies: lisinopril (Verified Adverse Reaction, Severe, cough, 04/05/17) Uncoded Allergies: DAIRY (Adverse Reaction, Severe, DIARRHEA, 03/14/17) Home Medications Amlodipine (Amlodipine) 5 Mg Tablet 5 MG PO BID Aspirin (Aspirin) 81 Mg Tablet 81 MG PO DAILY Atorvastatin (Lipitor) 40 Mg Tablet 40 MG PO HS Calcitriol (Rocaltrol) 0.25 Mcg Capsule 0.5 MCG PO DAILY Cholecalciferol (Vitamin D3) (Vitamin D3) 2,000 Unit Capsule 2,000 UNIT PO DAILY Clopidogrel (Clopidogrel) 75 Mg Tablet 75 MG PO DAILY Furosemide (Lasix) 40 Mg Tablet 40 MG PO DAILY Insulin Glargine (Lantus U100 Solostar Insulin Pen) 100 Unit/1 Ml Insuln.pen 45 UNITS SQ HS Insulin Lispro (HumaLOG U100 Insulin Pen) 100 Unit/1 Ml Insuln.pen SQ BIDWM 18-22 units subcutaneous route two times a day with meals for diabetes Metoprolol Tartrate (Metoprolol Tartrate) 25 Mg Tablet 50 MG PO BID Sodium Bicarbonate (Sodium Bicarbonate) 650 Mg Tablet 1,300 MG PO BID PMH Coronary artery disease 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 Hypertension Hyperlipidemia NSTEMI 01/2017 Obesity CHF CKD stage 4 Depression Anxiety Reports: Coronary artery disease, Diabetes mellitus, Hypertension Reports: Renal failure Additional PMH Per outpatient [employer] records: Peripheral vascular disease Sleep apnea Foot infections BPH Surgical History Cardiac Catheterization in 2007 Kidney biopsy Right toe amputation Family History Several close male relatives with DM2 Sister with breast cancer in remission Additional family history Per outpatient [employer] records: Father: Living, Hyperlipidemia, diabetes, lung cancer, hypertension Mother: No known history of cardiac disease Social History Hx Alcohol Use: Yes (QUIT 1983) Hx Substance Use: No Hx Tobacco Use: No Smoking Status: Former Smoker Living Arrangement: with Family Additional Information PCP Dr. Malave Exam Vital Signs Vital Sign - Last Date Time Temp Pulse Resp B/P Pulse Ox O2 Delivery O2 Flow Rate FiO2 04/05/17 01:40 92 39 164/91 100 BiPAP 04/05/17 01:07 90 04/05/17 00:50 15 04/05/17 00:42 37.6 Intake and Output 04/04/17 04/04/17 04/05/17 Cumulative From/Thru 15:00 23:00 07:00 04/05/17 01:27 - 04/05/17 01:27 Output Total 275 ml 275 ml Balance -275 ml -275 ml Output Urine Total 275 ml 275 ml Exam General: Sitting up in hospital bed with BiPAP in place in mild distress, well- nourished and appropriately interactive HEENT: Normocephalic, atraumatic. External ears without defect. Pupils equal, round, and reactive to light and accommodation. BiPAP in place Neck: Supple with full range of motion. No jugular venous distension. Cardiovascular: Regular rate and rhythm with no murmurs, difficult to appreciate secondary to BiPAP noise Pulmonary: Diminished breath sounds secondary to BiPAP noise, crackles appreciated on deep inhalation. No accessory muscle usage Abdomen: Soft, nontender to palpation 4 quadrants. Extremities: Right great toe amputation scar well-healed. Bilateral lower extremity edema to mid edema. Left radiocephalic fistula Skin: Normal temperature, turgor, and texture. Venous stasis changes Neurological: Cranial nerves grossly intact. Lymph: no cervical or supraclavicular lymphadenopathy Psychiatric: Normal mood and affect. Alert and oriented to person, place, and time. Lab and Diagnostics Result Diagram: 04/05/174904/05/1749 X-Rays, CTs and MRIs Chest x-ray: Pulmonary edema, cardiomegaly, right greater than left pleural effusion. Wet read by night resident 12-lead ECG Per ED doctor: Sinus tachycardia rate 101 Probable left atrial enlargement Right axis deviation Nonspecific repol abnormality, diffuse leads More acutely ischemic appearance compared to previous 01/28/2017 Cardiac Echo Impressions . Echocardiogram Report - 01/28/2017 Interpretation Summary The left ventricle is normal in size. Left ventricular systolic function is borderline reduced. The ejection fraction is estimated to be 50-55%. There has been no significant change since the previous study. There is hypokinesis along the basal to mid inferior wall and akinesis along the basal to mid anterolateral and inferolateral wall. LV wall motion has not changed significantly. Assessment of diastolic parameters indicates a restrictive filling pattern of the left ventricle consistent with significantly elevated\ filling pressures. Diastolic function has decreased since prior echo study. The right ventricle is normal size. Right ventricular systolic function is borderline reduced. Pulmonary artery pressures cannot be estimated because of the lack of a measurable TR jet velocity. The left atrium is moderately dilated. Right atrial size is normal. There is no significant valvular heart disease. The aortic root is normal size. There are moderate-sized bilateral pleural effusions noted. Additional Diagnostics: DateTimeAnalyzed 00:51:53 -_ pH ____7.350 - 7.350 7.450 pCO2 ___34.6__ -mmHg 35.0 45.0 pO2 303 -mmHg 70.0 100 HCO3- ___19.1__ -mmol/L 22.0 26.0 ABE ___-5.9__ -mmol/L -2.0 2.0 tHb ___12.9__ -g/dL 12.0 18.0 O2Hb ___98.7__ -% 95.0 COHb ____2.5__ -% 1.5 MetHb ____0.0__ -% 0.4 1.5 FIO2 ___21.0__ -% CPAP ___15.0__ -cmH2O Assessment & Plan 62-year-old male past medical history CHF, CKD, CAD, NSTEMI admitted for hypoxia requiring BiPAP and elevated troponin. Acute on chronic CHF exacerbation. Diastolic dysfunction. Present on admission. Ongoing - Echo on 01/28/2017 showed EF 50-55%, hypo-and akinesis, increased diastolic dysfunction - Chest x-ray as above, reviewed and as above - ECG as above, reviewed - Patient appears to be hypervolemic - Furosemide 100 mg IV given in ED with good effect - Continue home metoprolol - Telemetry - Strict monitoring of I's and O's - limited echo ordered Hypoxia. Present on admission. Improving - Most likely secondary to CHF exacerbation - O2 sats in the field reported to be in the 80s - BiPAP initiated in ED with good effect - ABGs s/p BiPAP showed no acidosis - Continue to monitor Elevated troponin. Present on admission. Ongoing - Possibly secondary to demand ischemia with underlying CKD - History of NSTEMI, CAD with catheterization - No reports of chest pain - Initial troponin 0.107, continue to trend - ECG showed possible ischemia - Echo as above - Continue home statin, ASA, Plavix, Metoprolol - Nitroglycerin when necessary - Continue to monitor Acute on chronic Kidney Injury. Present on admission. 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 Chronic. Present on admission. Active - Home medications include Lantus 40 units subcutaneous at bedtime and NovoLog - A1c pending - Correctional scale insulin Obstructive sleep apnea. Chronic. Present on admission. - Patient states he has been prescribed home CPAP - Continue BiPAP Hypertension. Chronic. Present admission. Active - BP on admission 200/95, trended down to 144/77 status post Lasix administration - Continue home amlodipine, furosemide, Metoprolol - Continue to monitor Hyperlipidemia. Chronic. Present on admission. Active - Continue home atorvastatin Anemia. Acute. Present admission. Ongoing - Review of records show decreased H&H beginning 02/13/2017 - Most likely secondary to CKD - Stool guaiac pending - Continue to monitor Obesity. Chronic. Present on admission. Ongoing - Encourage diet and exercise Possible Pneumonia, acute. Present on admission - Leukocytosis and temp of 37.6 - Awaiting official CXR read - Admitted in January for CAP though this was ruled out and no ABX course initiated. - Pt reports no Sx leading up to admission, no sick contacts - Defer to day team to decide to initiate work up, pending repeat labs and response to current treatment Patient Status: Patient was admitted under inpatient status with expected length of stay greater than two midnights due to severity of presenting symptoms , risk of adverse event, and complexity of treatment plan. GI Prophylaxis: Proton Pump Inhibitor VTE Prophylaxis: Sub-Q Heparin (Unfractionated) Resuscitation Status: CPR: Attempt Resuscitation Attending Statement The patient was seen and examined together with house staff on 04/05/2017 and I agree with the history, exam and plan as outlined in the note above. BREA RAMIREZ DO Apr 05, 2017 02:14 Mary Smith DO Apr 05, 2017 05:45
[2017-04-05 04:05] LABS: Magnesium 2.3 mg/dL (1.6-2.6); Phosphorus 3.9 mg/dL (2.5-4.9)
--- NOTE | 2017-04-05 04:22 | NUR ---
Admission to CCU Pt admitted to CCU Room # 2015 from ER. Pt. scooted himself from the [facility] to hospital bed. Pt arrived on [facility] at 9 LPM. Pt febrile, hypertensive, and tachypneic. Admission assessments completed including medication reconciliation. Pt has scattered discolorations and small healed abrasions to lower legs. Pt also has healed amputations to his right first 3 Toes. MRSA swab collected and sent to lab. Pt placed on SS insulin orders. Double checked with Dr. Cedillo re: order for D10W 250ml bolus, per MD order this was canceled as it was ordered in error. Critical Labs include BUN and slightly increasing Troponin level; MD made aware. Morning CXR delayed until day shift arrives. Pt brought in home CPAP unit to use; RT inspected and set up machine with 5L O2 bleed. Pt saline locked with 18G PIV in left hand. Pt has freshly(this last week) placed right fistula in preparation for eventually receiving dialysis. Pt states he normally wears glasses but that he left them at home. says she will bring them in tomorrow.
[2017-04-05 05:05] LABS: BASOPHILS % (AUTO) 0.1 % (0-3); EOSINOPHILS % (AUTO) 0.4 % (0-5); MONOCYTES % (AUTO) 6.8 % (4-12); Mean Corpuscular Volume 86.4 fL (81-100); NEUTROPHILS % (AUTO) 86.3 % (40-74); Platelet Count 209 bil/L (150-400)
[2017-04-05] MEDS: Insulin LISPRO 300 Unit/3 mL Inj SUBQ SCH ×4 (08:00→20:54)
[2017-04-05] MEDS: Pantoprazole 20 mg ER24 Tablet PO SCH (08:10)
--- NOTE | 2017-04-05 09:17 | DRSVH ---
PROCEDURE: X-RAY CHEST ONE VIEW, PORTABLE ([id number]) INDICATIONS: chf TECHNIQUE: One view of the chest was acquired. COMPARISON: [facility], CR, XR CHEST 1VW (PORTABLE), 01/28/2017, 5:52. FINDINGS: Surgical changes and devices: teletypesetter monitor leads are seen over the chest. Lungs and pleura: No pleural effusions or pneumothorax. Bilaterally have significantly improved sinc e the film of 01/28/17. The current appearance would suggest the possibility of mild interstitial edema vascular prominence, hilar indistinctness and minimal effusions. Mediastinum: Mediastinal contours appear normal. Heart size is normal. Bones and chest wall: No suspicious bony lesions. Overlying soft tissues appear unremarkable. IMPRESSION: Resolved pneumonia since previous film earlier in the air. Changes suggestive of mild interstitial pulmonary edema. Dictated by: Kai Winter M.D. on 04/05/2017 at 9:14 Approved by: Kai Winter M.D. on 04/05/2017 at 9:16
[2017-04-05] MEDS ORDERED: Furosemide 10 mg/mL 4 mL Inj IVPUSH ONE (10:30)
--- NOTE | 2017-04-05 10:37 | PCM.PNMED ---
Subjective Date of Service Apr 05, 2017 Subjective Shortness of breath is much improved. No palpitations or chest pain. No nausea. No abdominal pain. He is hungry. No diarrhea. No overnight events Exam Vital Signs Vital Sign - Last Date Time Temp Pulse Resp B/P Pulse Ox O2 Delivery O2 Flow Rate FiO2 04/05/17 08:04 36.9 77 21 154/78 95 CPAP 5.00 04/05/17 01:07 90 Intake and Output 04/04/17 04/04/17 04/05/17 Cumulative From/Thru 15:00 23:00 07:00 04/05/17 01:27 - 04/05/17 06:01 Intake Total 0 ml 0 ml Output Total 655 ml 655 ml Balance -655 ml -655 ml Intake Oral 0 ml 0 ml Output Urine Total 655 ml 655 ml # Bowel Movements 0 0 Exam Alert and oriented -3, no distress. Fluent speech Anicteric sclera. Lungs are clear with normal rate and effort Heart is regular without murmur gallop or rub, bibasilar rales left greater than right Abdomen soft nontender, flat Extremities with 1+ edema Skin is free of rash or lesions. IVs and Medications Medications Reviewed: Medications were reviewed in detail Lab and Diagnostics Result Diagram: 04/05/17 0300 04/05/17 0300 X-Rays, CTs and MRIs Chest x-ray: Pulmonary edema, cardiomegaly, right greater than left pleural effusion. Wet read by night resident 12-lead ECG Per ED doctor: Sinus tachycardia rate 101 Probable left atrial enlargement Right axis deviation Nonspecific repol abnormality, diffuse leads More acutely ischemic appearance compared to previous 01/28/2017 Cardiac Echo Impressions . Echocardiogram Report - 01/28/2017 Interpretation Summary The left ventricle is normal in size. Left ventricular systolic function is borderline reduced. The ejection fraction is estimated to be 50-55%. There has been no significant change since the previous study. There is hypokinesis along the basal to mid inferior wall and akinesis along the basal to mid anterolateral and inferolateral wall. LV wall motion has not changed significantly. Assessment of diastolic parameters indicates a restrictive filling pattern of the left ventricle consistent with significantly elevated\ filling pressures. Diastolic function has decreased since prior echo study. The right ventricle is normal size. Right ventricular systolic function is borderline reduced. Pulmonary artery pressures cannot be estimated because of the lack of a measurable TR jet velocity. The left atrium is moderately dilated. Right atrial size is normal. There is no significant valvular heart disease. The aortic root is normal size. There are moderate-sized bilateral pleural effusions noted. Additional Diagnostics DateTimeAnalyzed 00:51:53 -_ pH ____7.350 - 7.350 7.450 pCO2 ___34.6__ -mmHg 35.0 45.0 pO2 303 -mmHg 70.0 100 HCO3- ___19.1__ -mmol/L 22.0 26.0 ABE ___-5.9__ -mmol/L -2.0 2.0 tHb ___12.9__ -g/dL 12.0 18.0 O2Hb ___98.7__ -% 95.0 COHb ____2.5__ -% 1.5 MetHb ____0.0__ -% 0.4 1.5 FIO2 ___21.0__ -% CPAP ___15.0__ -cmH2O Assessment & Plan 62-year-old male past medical history CHF, CKD, CAD, NSTEMI admitted for hypoxia requiring BiPAP and elevated troponin. Acute on chronic CHF exacerbation. Diastolic dysfunction. Present on admission. Improved. - Echo on 01/28/2017 showed EF 50-55%, hypo-and akinesis, increased diastolic dysfunction - Chest x-ray as above, reviewed and as above - ECG as above, reviewed - Patient appears to be hypervolemic - Furosemide 100 mg IV given in ED with good effect - Continue home metoprolol - Telemetry - Strict monitoring of I's and O's - limited echo ordered Initial dose of IV Lasix today. Hypoxia. Present on admission. Improving - Most likely secondary to CHF exacerbation - O2 sats in the field reported to be in the 80s - BiPAP initiated in ED with good effect - ABGs s/p BiPAP showed no acidosis - Continue to monitor Wean oxygen. Elevated troponin. Present on admission. Ongoing - Possibly secondary to demand ischemia with underlying CKD - History of NSTEMI, CAD with catheterization - No reports of chest pain - Initial troponin 0.107, continue to trend - ECG showed possible ischemia - Echo as above - Continue home statin, ASA, Plavix, Metoprolol - Nitroglycerin when necessary - Continue to monitor We will trend troponins. He does have a known history of multiple vessel disease not amenable to PCI. We will optimize medical management. Acute on chronic Kidney Injury. Present on admission. Ongoing and still active. 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 We will follow creatinine carefully. Dialysis is not prominent at this point. Diabetes mellitus type II, insulin-dependent. Chronic. Present on admission. Active and reasonably controlled this morning., - Home medications include Lantus 40 units subcutaneous at bedtime and NovoLog - A1c pending - Correctional scale insulin , no chest medications. Obstructive sleep apnea. Chronic and stable. Present on admission. - Patient states he has been prescribed home CPAP - Continue BiPAP Hypertension. Chronic and stable. Present admission. Active - BP on admission 200/95, trended down to 144/77 status post Lasix administration - Continue home amlodipine, furosemide, Metoprolol - Continue to monitor Hyperlipidemia. Chronic. Present on admission. Active - Continue home atorvastatin Anemia. Acute and stable. Present admission. Ongoing - Review of records show decreased H&H beginning 02/13/2017 - Most likely secondary to CKD - Stool guaiac pending - Continue to monitor Obesity. Chronic. Present on admission. Ongoing - Encourage diet and exercise Possible Pneumonia, acute. Present on admission - Leukocytosis and temp of 37.6 - Awaiting official CXR read - Admitted in January for CAP though this was ruled out and no ABX course initiated. - Pt reports no Sx leading up to admission, no sick contacts - Defer to day team to decide to initiate work up, pending repeat labs and response to current treatment, , no evidence of pneumonia at this point we will follow clinically. Patient Status: Patient was admitted under inpatient status with expected length of stay greater than two midnights due to severity of presenting symptoms , risk of adverse event, and complexity of treatment plan. Probable discharge on April 06 continues to improve and creatinine begins to improve. GI Prophylaxis: Proton Pump Inhibitor VTE Prophylaxis: Sub-Q Heparin (Unfractionated) VTE Mechanical Devices: Intermittant Pneumatic CD Resuscitation Status: CPR: Attempt Resuscitation Aaron Woods MD Apr 05, 2017 10:37
--- NOTE | 2017-04-05 15:56 | NUR ---
STATUS Pt resting comfortably in bed. No reported chest discomfort. Denies pain. Respirations unlabored and even. No reported SOA. CPAP with 4L 02 at sleep, oxymask with 4L while awake. Desaturated down to 88-89% when oxygen titrated down to 3L, returned to mid 90s once increased to 4L. Faint crackles to LLL. Edema to BLE. Lasix administered as scheduled. 2200cc urine out this shift. Tolerating diet. Blood glucose controlled. Up to chair this afternoon, tolerating small amounts of activity.
[2017-04-05] MEDS ORDERED: Heparin 5,000 Unit/mL Inj IVPUSH PRN (17:30)
[2017-04-05] MEDS ORDERED: Heparin 5,000 Unit/mL Inj IVPUSH ONE (17:30)
[2017-04-05] MEDS: Heparin 25K Unit/500mL 0.45 NS 25,000 UNIT in IV Premix 1 EACH IV SCH (17:47)
--- NOTE | 2017-04-05 19:23 | NUR ---
Respiratory distress Increased respiratory effort noted mid-meal this evening. Oxygen saturation decreased to 88-89% on 4L per NC while eating dinner. Tachypneic, RR upper 20s to mid 30s. Lungs diminished with faint crackles to BLL, left > right. CPAP placed with 10L 02, oxygen saturation > 92%. Diaphoretic. SR per gas manager, HR 90s. Mildly hypertensive, 159/79. Denies chest discomfort. Heparin gtt infusing per protocol. Dr Smith and respiratory therapist notified of change in patient status. New orders received. Will continue to monitor.
[2017-04-05 19:39] LABS: BASOPHILS % (AUTO) 0.1 % (0-3); EOSINOPHILS % (AUTO) 1.8 % (0-5); MONOCYTES % (AUTO) 7.6 % (4-12); Mean Corpuscular Hemoglobin 28.7 pg (27.0-35.0); Mean Corpuscular Volume 86.2 fL (81-100); NEUTROPHILS % (AUTO) 82.6 % (40-74); Platelet Count 181 bil/L (150-400)
--- NOTE | 2017-04-05 19:54 | DRSVH ---
PROCEDURE: X-RAY CHEST ONE VIEW, PORTABLE ([id number]) INDICATIONS: increased oxygen requirements TECHNIQUE: One view of the chest was acquired. COMPARISON: [facility], CR, XR CHEST 1VW (PORTABLE), 04/05/2017, 0:53. FINDINGS: Surgical changes and devices: monitoring analyst leads are seen over the chest. Lungs and pleura: No pleural effusions or pneumothorax. The there has been recurrence of patchy dens ity at the left base seen through the heart is a film earlier in the day. Mediastinum: Mediastinal contours appear normal. Heart size is normal. Bones and chest wall: No suspicious bony lesions. Overlying soft tissues appear unremarkable. IMPRESSION: Recurrence of atelectasis or infiltrate in the left lower lobe behind the heart since joselin m earlier in the day. Dictated by: Kai Winter M.D. on 04/05/2017 at 19:51 Approved by: Kai Winter M.D. on 04/05/2017 at 19:52
[2017-04-05 20:30] LABS: TROPONIN T 0.218 ug/L (0.0-0.011)
[2017-04-06 04:12] VITALS: BP 151/79; PULSE 66; RESP 15; O2SAT 97
--- NOTE | 2017-04-06 04:59 | NUR ---
Respiratory; Labs and imaging reviewed by Dr. Cardenas. No new orders at this time. o2 maintained overnight in the 90s on CPAP with 10L bleed in. Pt denies any chest pain or discomfort. No diaphoresis noted. Pt sleeping comfortably overnight, Respirations remain unlabored.
[2017-04-06 06:15] LABS: TROPONIN T 0.23 ug/L (0.0-0.011)
[2017-04-06 08:00] VITALS: BP 139/76; PULSE 72; O2SAT 95
[2017-04-06] MEDS: Insulin LISPRO 300 Unit/3 mL Inj SUBQ SCH ×4 (08:00→20:08)
[2017-04-06 09:13] VITALS: PULSE 72
--- NOTE | 2017-04-06 09:13 | PCM.PNMED ---
Subjective Date of Service Apr 06, 2017 Subjective His softball. He denies any chest pain or dyspnea today. He has not been up and moving around much. No nausea. He is constipated but is urinating without difficulty. Overnight events noted. Exam Vital Signs Vital Sign - Last Date Time Temp Pulse Resp B/P Pulse Ox O2 Delivery O2 Flow Rate FiO2 04/06/17 04:12 36.8 66 15 151/79 97 CPAP 10.00 04/05/17 01:07 90 Intake and Output 04/05/17 04/05/17 04/06/17 Cumulative From/Thru 15:00 23:00 07:00 04/05/17 01:27 - 04/06/17 04:56 Intake Total 450 ml 219 ml 669 ml Output Total 2450 ml 3105 ml Balance -2000 ml 219 ml -2436 ml Intake Oral 450 ml 450 ml IV Total 219 ml 219 ml Output Urine Total 2450 ml 3105 ml # Bowel Movements 0 Exam Alert and oriented -3, no distress. Fluent speech Anicteric sclera. Lungs are clear with normal rate and effort Heart is regular without murmur gallop or rub Abdomen soft nontender, flat Extremities are free of edema. Skin is free of rash or lesions. IVs and Medications Medications Reviewed: Medications were reviewed in detail Lab and Diagnostics Troponin is 0.230 Result Diagram: 04/06/1751404/06/17 0515 X-Rays, CTs and MRIs Chest x-ray: Pulmonary edema, cardiomegaly, right greater than left pleural effusion. Wet read by night resident 12-lead ECG Per ED doctor: Sinus tachycardia rate 101 Probable left atrial enlargement Right axis deviation Nonspecific repol abnormality, diffuse leads More acutely ischemic appearance compared to previous 01/28/2017 Cardiac Echo Impressions . Echocardiogram Report - 01/28/2017 Interpretation Summary The left ventricle is normal in size. Left ventricular systolic function is borderline reduced. The ejection fraction is estimated to be 50-55%. There has been no significant change since the previous study. There is hypokinesis along the basal to mid inferior wall and akinesis along the basal to mid anterolateral and inferolateral wall. LV wall motion has not changed significantly. Assessment of diastolic parameters indicates a restrictive filling pattern of the left ventricle consistent with significantly elevated\ filling pressures. Diastolic function has decreased since prior echo study. The right ventricle is normal size. Right ventricular systolic function is borderline reduced. Pulmonary artery pressures cannot be estimated because of the lack of a measurable TR jet velocity. The left atrium is moderately dilated. Right atrial size is normal. There is no significant valvular heart disease. The aortic root is normal size. There are moderate-sized bilateral pleural effusions noted. Additional Diagnostics DateTimeAnalyzed 00:51:53 -_ pH ____7.350 - 7.350 7.450 pCO2 ___34.6__ -mmHg 35.0 45.0 pO2 303 -mmHg 70.0 100 HCO3- ___19.1__ -mmol/L 22.0 26.0 ABE ___-5.9__ -mmol/L -2.0 2.0 tHb ___12.9__ -g/dL 12.0 18.0 O2Hb ___98.7__ -% 95.0 COHb ____2.5__ -% 1.5 MetHb ____0.0__ -% 0.4 1.5 FIO2 ___21.0__ -% CPAP ___15.0__ -cmH2O Assessment & Plan 62-year-old male past medical history CHF, CKD, CAD, NSTEMI admitted for hypoxia requiring BiPAP and elevated troponin. Acute on chronic CHF exacerbation. Diastolic dysfunction. Present on admission. Improved. - Echo on 01/28/2017 showed EF 50-55%, hypo-and akinesis, increased diastolic dysfunction - Chest x-ray as above, reviewed and as above - ECG as above, reviewed - Patient appears to be hypervolemic - Furosemide 100 mg IV given in ED with good effect - Continue home metoprolol - Telemetry - Strict monitoring of I's and O's - limited echo ordered We will convert him to oral Lasix today. Hypoxia. Present on admission. Improving - Most likely secondary to CHF exacerbation - O2 sats in the field reported to be in the 80s - BiPAP initiated in ED with good effect - ABGs s/p BiPAP showed no acidosis - Continue to monitor Wean oxygen. We will assess him on room air. Elevated troponin. possible NSTEMI. Present on admission. Ongoing -This may as well related to his chronic kidney disease stage IV. We will trend troponins. He does have a known history of multiple vessel disease not amenable to PCI. We will optimize medical management. We will plan on heparinizing him for approximately 24-48 hours and then readjust her medications. Acute on chronic Kidney Injury. Present on admission. Ongoing and still active. 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 We will follow creatinine carefully. Dialysis is not prominent at this point. Diabetes mellitus type II, insulin-dependent. Chronic. Present on admission. Active and reasonably controlled this morning., - Home medications include Lantus 40 units subcutaneous at bedtime and NovoLog - A1c pending - Correctional scale insulin , no chest medications. Obstructive sleep apnea. Chronic and stable. Present on admission. - Patient states he has been prescribed home CPAP - Continue BiPAP Hypertension. Chronic and stable. Present admission. Active - BP on admission 200/95, trended down to 144/77 status post Lasix administration - Continue home amlodipine, furosemide, Metoprolol - Continue to monitor, he is somewhat hypertensive so we will uptitrate beta blockade. Hyperlipidemia. Chronic. Present on admission. Active - Continue home atorvastatin Anemia. Acute and stable. Present admission. Ongoing - Review of records show decreased H&H beginning 02/13/2017 - Most likely secondary to CKD - Stool guaiac pending - Continue to monitor Obesity. Chronic. Present on admission. Ongoing - Encourage diet and exercise Patient Status: Patient was admitted under inpatient status with expected length of stay greater than two midnights due to severity of presenting symptoms , risk of adverse event, and complexity of treatment plan. Probable discharge on April 06 continues to improve and creatinine begins to improve. GI Prophylaxis: Proton Pump Inhibitor VTE Prophylaxis: Sub-Q Heparin (Unfractionated) VTE Mechanical Devices: Intermittant Pneumatic CD Resuscitation Status: CPR: Attempt Resuscitation Aaron Woods MD Apr 06, 2017 09:13
[2017-04-06] MEDS: Pantoprazole 20 mg ER24 Tablet PO SCH (09:17)
[2017-04-06 12:00] VITALS: BP 128/73; PULSE 64; RESP 13; O2SAT 97
[2017-04-06] MEDS ORDERED: Isosorbide Mononitrate 60 mg ER24 Tablet PO ONE (12:50)
[2017-04-06 16:00] VITALS: BP 138/70; PULSE 73; RESP 15; O2SAT 96
[2017-04-06] MEDS: Heparin 25K Unit/500mL 0.45 NS 25,000 UNIT in IV Premix 1 EACH IV SCH (17:19)
--- NOTE | 2017-04-06 18:14 | NUR ---
Activity/respiratory Pt up to chair at lunch and most of the shift. Denies any SOB, chest pain or dizziness. A&O x3, using the call light appropriately. Titrated O2 to 2L oxymask, pt still using CPAP at night for sleeping.
[2017-04-06 20:00] VITALS: BP 131/73; PULSE 78; RESP 15; O2SAT 92
[2017-04-07 00:20] VITALS: BP 118/66; PULSE 65; RESP 12; O2SAT 97
[2017-04-07 05:42] VITALS: BP 128/66; PULSE 63; RESP 20; O2SAT 96
--- NOTE | 2017-04-07 06:54 | NUR ---
Cardiac Pt denies pain or SOB. Up to chair and tolerated well. Utilizing home CPAP while sleeping. Heparin gtt infusing and managed per cardiac protocol. No overt complications noted.
[2017-04-07] MEDS ORDERED: Isosorbide Mononitrate 60 mg ER24 Tablet PO SCH (07:30)
[2017-04-07 08:00] VITALS: BP 128/66; PULSE 66; RESP 20; O2SAT 98
[2017-04-07] MEDS: Insulin LISPRO 300 Unit/3 mL Inj SUBQ SCH ×2 (08:00→12:09)
[2017-04-07] MEDS: Pantoprazole 20 mg ER24 Tablet PO SCH (09:04)
[2017-04-07 09:32] LABS: TROPONIN T 0.227 ug/L (0.0-0.011)
[2017-04-07 11:22] VITALS: PULSE 68
[2017-04-07 12:33] VITALS: BP 126/62; RESP 20; O2SAT 95
--- NOTE | 2017-04-07 13:24 | PCM.DIMED ---
Discharge Instructions Date of Service Apr 07, 2017 Dates of Hospitalization Apr 05, 2017 at 01:35 Discharge Diagnosis Discharge Diagnosis Acute on chronic diastolic heart failure, resolved Acute respiratory failure with hypoxia, resolved NSTEMI. Improved Acute kidney injury on chronic kidney disease stage IV, stable Diabetes mellitus type II, insulin-dependent. Stable Obstructive sleep apnea. Stable Hypertension. Stable. Hyperlipidemia. Stable Anemia. Stable Obesity. Stable Diet Discharge Diet: Low fat, Low Sodium, Heart Healthy, Diabetic Activity Discharge Activity: Limited until seen by PCP Call your provider Call your provider for: Shortness of breath, Chest pain Patient Instructions Patient Instructions Call 911 for severe shortness of breath or chest pain Call for an appointment with me next Friday, April 14. Ask staff to verbal cue Follow-up Provider: Aaron Woods MD Follow-up with PCP in: 1 week Aaron Woods MD Apr 07, 2017 13:24
[2017-04-07] MEDS ORDERED: CARV25TA2 PO (13:26)
[2017-04-07] MEDS ORDERED: ISOS60TA2 PO (13:26)
--- NOTE | 2017-04-07 13:33 | PCM.DC.MED ---
Discharge Summary Date of Service Apr 07, 2017 Dates of Hospitalization Date of Hospital Admission Apr 05, 2017 at 01:35 Date of Discharge: Apr 07, 2017 Providers: Admitting Physician: Mary Smith DO Primary Care Physician: Aaron Serrato MD Attending Physician: Mary Smith DO Diagnosis at Time of Discharge Diagnosis at Time of Discharge Acute on chronic diastolic heart failure, resolved Acute respiratory failure with hypoxia, resolved NSTEMI. Improved Acute kidney injury on chronic kidney disease stage IV, stable Diabetes mellitus type II, insulin-dependent. Stable Obstructive sleep apnea. Stable Hypertension. Stable. Hyperlipidemia. Stable Anemia. Stable Obesity. Stable Consultations Curbside with cardiology Procedures XRay, CTs & MRIs Chest x-ray: Pulmonary edema, cardiomegaly, right greater than left pleural effusion. Wet read by night resident ECG 12 Lead Per ED doctor: Sinus tachycardia rate 101 Probable left atrial enlargement Right axis deviation Nonspecific repol abnormality, diffuse leads More acutely ischemic appearance compared to previous 01/28/2017 Cardiac Echo Impression . Echocardiogram Report - 01/28/2017 Interpretation Summary The left ventricle is normal in size. Left ventricular systolic function is borderline reduced. The ejection fraction is estimated to be 50-55%. There has been no significant change since the previous study. There is hypokinesis along the basal to mid inferior wall and akinesis along the basal to mid anterolateral and inferolateral wall. LV wall motion has not changed significantly. Assessment of diastolic parameters indicates a restrictive filling pattern of the left ventricle consistent with significantly elevated\ filling pressures. Diastolic function has decreased since prior echo study. The right ventricle is normal size. Right ventricular systolic function is borderline reduced. Pulmonary artery pressures cannot be estimated because of the lack of a measurable TR jet velocity. The left atrium is moderately dilated. Right atrial size is normal. There is no significant valvular heart disease. The aortic root is normal size. There are moderate-sized bilateral pleural effusions noted. Other Diagnostics DateTimeAnalyzed 00:51:53 -_ pH ____7.350 - 7.350 7.450 pCO2 ___34.6__ -mmHg 35.0 45.0 pO2 303 -mmHg 70.0 100 HCO3- ___19.1__ -mmol/L 22.0 26.0 ABE ___-5.9__ -mmol/L -2.0 2.0 tHb ___12.9__ -g/dL 12.0 18.0 O2Hb ___98.7__ -% 95.0 COHb ____2.5__ -% 1.5 MetHb ____0.0__ -% 0.4 1.5 FIO2 ___21.0__ -% CPAP ___15.0__ -cmH2O Brief History Mr. Perez is a 62-year-old male past medical history of DM2, HTN, CAD with recent NSTEMI (01/2017) s/p catheterization without stent placement presented to the ED via EMS secondary to shortness of breath 1 day. Patient states that he has felt ill for the last few days he was at home when he became progressively more short of breath starting this morning. His family activated 911 and EMS reported the patient to have a blood pressure of 155/85 with pulse rate 100 respiratory rate in the 50s with pulse ox in the low 80s on room air. He does not have home O2. He notes he continues to have ability to ambulate, becoming short of breath while walking and now while sleeping requiring him to sleep at a 45 angle, he has been prescribed BiPAP proximally one month ago, and has received a left radiocephalic fistula on 04/01/2017 in anticipation of hemodialysis. He denies chest pain, palpitations, headache, visual changes, nausea/vomiting, fever/chills, pain with respiration, cough, abdominal pain, changes in GI or habits. He does report a shortness of breath and dizziness that is relieved with BiPAP. In the ED patient found to be febrile, tachycardic, tachypneic and hypertensive. O2 saturation sheldon to 100%% on BiPAP. ABGs performed approximately one hour after bicarbonate initiation did not show acidosis, PCO2 34.6 and pH 7.35. Chest x-ray showed pulmonary edema. Lab work significant for leukocytosis, mild anemia, elevated BUN/creatinine, hyperglycemia and a troponin of 0.1 Hospital Course 62-year-old male past medical history CHF, CKD, CAD, NSTEMI admitted for hypoxia requiring BiPAP and elevated troponin. Acute on chronic CHF exacerbation. Diastolic dysfunction. Present on admission. Improved. - Echo on 01/28/2017 showed EF 50-55%, hypo-and akinesis, increased diastolic dysfunction - Chest x-ray as above, reviewed and as above - ECG as above, reviewed - Patient appears to be hypervolemic - Furosemide 100 mg IV given in ED with good effect - Continue home metoprolol - Telemetry - Strict monitoring of I's and O's - limited echo ordered We will convert him to oral Lasix today. Hypoxia. Present on admission. Improving - Most likely secondary to CHF exacerbation - O2 sats in the field reported to be in the 80s - BiPAP initiated in ED with good effect - ABGs s/p BiPAP showed no acidosis - Continue to monitor Wean oxygen. We will assess him on room air. Elevated troponin. possible NSTEMI. Present on admission. Ongoing -This may as well related to his chronic kidney disease stage IV. We will trend troponins. He does have a known history of multiple vessel disease not amenable to PCI. We will optimize medical management. We will plan on heparinizing him for approximately 24-48 hours and then readjust her medications. Acute on chronic Kidney Injury. Present on admission. Ongoing and still active. 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 We will follow creatinine carefully. Dialysis is not prominent at this point. Diabetes mellitus type II, insulin-dependent. Chronic. Present on admission. Active and reasonably controlled this morning., - Home medications include Lantus 40 units subcutaneous at bedtime and NovoLog - A1c pending - Correctional scale insulin , no chest medications. Obstructive sleep apnea. Chronic and stable. Present on admission. - Patient states he has been prescribed home CPAP - Continue BiPAP Hypertension. Chronic and stable. Present admission. Active - BP on admission 200/95, trended down to 144/77 status post Lasix administration - Continue home amlodipine, furosemide, Metoprolol - Continue to monitor, he is somewhat hypertensive so we will uptitrate beta blockade. Hyperlipidemia. Chronic. Present on admission. Active - Continue home atorvastatin Anemia. Acute and stable. Present admission. Ongoing - Review of records show decreased H&H beginning 02/13/2017 - Most likely secondary to CKD - Stool guaiac pending - Continue to monitor Obesity. Chronic. Present on admission. Ongoing - Encourage diet and exercise Patient Status: Patient was admitted under inpatient status with expected length of stay greater than two midnights due to severity of presenting symptoms , risk of adverse event, and complexity of treatment plan. Probable discharge on April 06 continues to improve and creatinine begins to improve. Exam Vital Signs (Last) Date Time Temp Pulse Resp B/P Pulse Ox O2 Delivery O2 Flow Rate FiO2 04/07/17 12:33 36.7 20 126/62 95 Nasal Cannula 1.00 04/07/17 11:22 68 04/05/17 01:07 90 Exam Patient was seen and examined on the day of discharge Test 04/05/17 00:50 04/05/17 03:00 04/05/17 19:30 04/07/17 04:45 Prothrombin Time 13.3sec (8.1-12.5) Prothromb Time International Ratio 1.24ratio Hemoglobin A1c 6.3% (4.8-5.6) Prealbumin 27mg/dL (20-40) Procalcitonin 0.16ng/mL (0.00-0.08) Phosphorus Level 3.9mg/dL (2.5-4.9) Magnesium Level 2.3mg/dL (1.6-2.6) Thyroid Stimulating Hormone (TSH) 1.170uIU/mL (0.450-4.500) White Blood Count 11.4th/mm3 (3.8-10.1) Red Blood Count 4.28mil/mm3 (4.40-5.80) Mean Corpuscular Volume 86.2fL (81-100) Mean Corpuscular Hemoglobin 28.7pg (27.0-35.0) Mean Corpuscular Hemoglobin Concent 33.3% (32.0-37.0) Red Cell Distribution Width 13.4% (12.3-15.4) Platelet Count 181bil/L (150-400) Neutrophils (%) (Auto) 82.6% (40-74) Lymphocytes (%) (Auto) 7.7% (14-46) Monocytes (%) (Auto) 7.6% (4-12) Eosinophils (%) (Auto) 1.8% (0-5) Basophils (%) (Auto) 0.1% (0-3) Lactic Acid Level 1.1mmol/L (0.4-2.0) Total Bilirubin 1.4mg/dL (0.0-1.2) Aspartate Amino Transf (AST/SGOT) 14U/L (0-50) Alanine Aminotransferase (ALT/SGPT) 13U/L (0-44) Alkaline Phosphatase 81U/L (25-160) Total Protein 7.4g/dL (6.4-8.4) Albumin 3.5g/dL (3.4-5.0) Hemoglobin 10.4g/dL (13.8-17.2) Hematocrit 31.0% (41.0-50.0) Activated Partial Thromboplast Time 79.5sec (22.8-33.0) Sodium Level 135mEq/L (134-144) Potassium Level 4.0mEq/L (3.5-5.2) Chloride Level 100mEq/L (97-108) Carbon Dioxide Level 17mmol/L (18-29) Blood Urea Nitrogen 87mg/dL (8-27) Creatinine 4.37mg/dL (0.76-1.27) Estimat Glomerular Filtration Rate 15mL/min (>59) Glucose Level 169mg/dL (60-99) Calcium Level 8.8mg/dL (8.5-10.1) Troponin T 0.227ug/L (0.0-0.011) Discharge Medications Discharge Medications Amlodipine (Amlodipine) 5 Mg Tablet 5 MG PO BID (Reported) Aspirin (Aspirin) 81 Mg Tablet 81 MG PO DAILY (Reported) Atorvastatin (Lipitor) 40 Mg Tablet 40 MG PO HS (Reported) Calcitriol (Rocaltrol) 0.25 Mcg Capsule 0.5 MCG PO DAILY (Reported) Carvedilol (Carvedilol) 25 Mg Tablet 25 MG PO BIDWM Prescribed by: AARON SERRATO MD Cholecalciferol (Vitamin D3) (Vitamin D3) 2,000 Unit Capsule 2,000 UNIT PO DAILY (Reported) Clopidogrel (Clopidogrel) 75 Mg Tablet 75 MG PO DAILY Prescribed by: BREA RAMIREZ DO Furosemide (Furosemide) 40 Mg Tablet 40 MG PO BID (Reported) Insulin Glargine (Lantus U100 Insulin Vial) 100 Unit/Ml Vial 40 UNIT SUBQ HS ( Reported) Isosorbide MN ER (Isosorbide MN ER) 60 Mg Tab.er.24h 60 MG PO 0730 Prescribed by: AARON SERRATO MD Sodium Bicarbonate (Sodium Bicarbonate) 650 Mg Tablet 1,300 MG PO BID (Reported ) As needed Nitroglycerin SL (Nitrostat) 0.4 Mg Tab.subl 0.4 MG SL Q5MIN PRN PRN CHEST PAIN (Reported) Miscellaneous Medications Insulin Aspart (NovoLOG U-100 Pen) 100 Unit/Ml Insuln.pen (Reported) Followup Plan Disposition: Home Discharge Diet: Low fat, Low Sodium, Heart Healthy, Diabetic Discharge Activity: Limited until seen by PCP Patient Instructions Call 911 for severe shortness of breath or chest pain Call for an appointment with me next Friday, April 14. Ask staff to verbal cue Follow-up Provider: Aaron Serrato MD Follow-up with PCP in: 1 week Time spent 45 minutes Aaron Serrato MD Apr 07, 2017 13:33
--- NOTE | 2017-04-07 14:15 | NUR ---
Social Work Note: Initial Assessment Data& Assessment: EMR Reviewed. SW met with pt at bedside to discuss discharge plan and assess for any unmet needs, SW role explained. Per pt is medically ready to discharge. Alis Perez is a 62 year old male admitted on 04/05/2017 for CHF and Chronic Renal Failure. Per MD pt is medically improved and ready to discharge home. Pt has Medicare insurance coverage and sees Aaron Woods MD for primary care. Pt lives in a single story home in [place] with his mother and is independent at baseline with all ADL's and does not use any DME. Pt does not have HH or SNF hx and drives. Pt does have LTC insurance. Pt does not have VA benefits. Pt states he has DPOA/Advance Directive paperwork completed, SW requested a copy when possible. Pt sister transporting pt home today. Pt denies any other needs. No other discharge needs identified. Plan: Per pt is medically ready to discharge home via POV. Pt denies any other needs. No other discharge needs identified. DALJIT Don Addendum: 04/07/17 at 1419 by ADRIANE ULLOA Amended: Links added.
--- NOTE | 2017-04-07 14:54 | NUR ---
Nursing discharge. Up in room indep, in chair all morning. Mild dyspnea with activity, indicates overall improvement. RA sats 93-94%, RR 18. Sinus rhythm on tele. A/O and in good spirits. Appears to have a good understanding of his disease processes and is coping well. Discussed discharge instructions for follow-up appointment, care and medications. Prescriptions and carenotes given for new medications. Sister to transport home.
== END 2017-04-07 15:38 | disposition home or self-care (01) | DRG 291 ==
LOC: SED 00:42 → CCU 01:35 → PCC 13:15
PROVIDERS: ADMIT Internal Medicine; ATTEND Internal Medicine
PROC: 4A033R1 Measurement of Arterial Saturation, Peripheral, Percutaneous Approach (ICD-10-PCS; principal; 2017-04-05)
DX: I50.43 Acute on chronic combined systolic (congestive) and diastolic (congestive) heart failure (principal); J96.21 Acute and chronic respiratory failure with hypoxia; N18.4 Chronic kidney disease, stage 4 (severe); I12.9 Hypertensive chronic kidney disease with stage 1 through stage 4 chronic kidney disease, or unspecified chronic kidney disease; I25.10 Atherosclerotic heart disease of native coronary artery without angina pectoris; E78.5 Hyperlipidemia, unspecified; F09 Unspecified mental disorder due to known physiological condition; E11.42 Type 2 diabetes mellitus with diabetic polyneuropathy; N40.0 Benign prostatic hyperplasia without lower urinary tract symptoms; E11.319 Type 2 diabetes mellitus with unspecified diabetic retinopathy without macular edema; D63.1 Anemia in chronic kidney disease; Z87.891 Personal history of nicotine dependence; I25.2 Old myocardial infarction; Z79.82 Long term (current) use of aspirin; Z79.4 Long term (current) use of insulin; Z89.421 Acquired absence of other right toe(s)

== ENCOUNTER 2017-05-09 01:02 | Day surgery (SDC) | payer MEDICARE ==
[~2017-05-09] VITALS: Ht 170.2 cm; Wt 82.7 kg
[2017-05-09] VITALS (9 sets, daily range): BP systolic 117–129; BP diastolic 64–75; PULSE 63–67; RESP 13–24; O2SAT 86–96
[~2017-05-09 01:02] MED LIST changes: +BLOO-1504 MC; +CARV25TA2 PO; -FURO-128 PO; +INSU100I SQ; -INSU100I13 SQ; -INSU100I18 SQ; +INSU100V7 SUBQ; +ISOS60TA2 PO; -METO25TA6 PO; +POTA20TA16 PO; -SODI650T PO; +TORS20TA PO; +lancets MC
[2017-05-09 08:00] LABS: BASOPHILS % (AUTO) 0.2 % (0-3); EOSINOPHILS % (AUTO) 3.1 % (0-5); MONOCYTES % (AUTO) 5.7 % (4-12); Mean Corpuscular Hemoglobin 28.4 pg (27.0-35.0); Mean Corpuscular Volume 84.4 fL (81-100); NEUTROPHILS % (AUTO) 78.6 % (40-74); Platelet Count 238 bil/L (150-400)
[2017-05-09 08:08] LABS: INR 1.01 ratio
--- NOTE | 2017-05-09 08:21 | NUR ---
0730 admit note: Patient ambulates into department with Sisters. Their questions are answered, IV started and labs drawn. He is prepped for procedure for tunnel cath placement.
[2017-05-09] MEDS ORDERED: CeFAZolin 2 Gm/50 mL D5W Duplex Bag IV ONE (09:13)
[2017-05-09] MEDS ORDERED: Heparin 10,000 Unit/1,000 mL NS Premix IV ONE (11:10)
[2017-05-09] MEDS ORDERED: fentaNYL-PF 50 mCg/mL 2 mL Inj ONE (11:15)
[2017-05-09] MEDS ORDERED: Heparin 1,000 Unit/mL 10 mL Inj ONE (11:16)
[2017-05-09] MEDS ORDERED: Ondansetron 2 mg/mL 2 mL Inj ONE (12:03)
--- NOTE | 2017-05-09 12:31 | NUR ---
Received Received from labor/excavator about 1210. VSS except for SPO2 in mid to high 80's. O2 placed at 2L BNC and SPO2 91-95%. labor/excavator nurse reported that he was low 90's on admit. Tele SR. Dozing intermittently. Denies pain. CXR done per order. Was slightly nauseated in labor relations consultant per report but states improvement with sitting up. Tunnel cath site without bleeding or hematoma. Bio-occlusive dressing with ultrafoam c/d/i. Continue to monitor per orders and Wean O2 as able.
--- NOTE | 2017-05-09 12:38 | DRSVH ---
PROCEDURE: X-RAY CHEST ONE VIEW, PORTABLE ([id number]) INDICATIONS: Tunnel Cath placement TECHNIQUE: One view of the chest was acquired. COMPARISON: [facility], CR, XR CHEST 1VW (PORTABLE), 04/27/2017, 8:05. FINDINGS: Surgical changes and devices: There is a new right internal jugular tunneled catheter with the tip ex tending to the cavoatrial junction. Lungs and pleura: No pleural effusions or pneumothorax. There are linear basilar opacities likely r epresenting atelectasis. Mediastinum: Mediastinal contours appear normal. Heart size is normal. Bones and chest wall: No suspicious bony lesions. Overlying soft tissues appear unremarkable. IMPRESSION: 1. No evidence of pneumothorax. Dictated by: Obed Bustillo M.D. on 05/09/2017 at 12:35 Approved by: Obed Bustillo M.D. on 05/09/2017 at 12:36
--- NOTE | 2017-05-09 14:58 | NUR ---
Discharge Pt. awake and O2 weaned to off just after 1330. Up to bathroom and tolerated well. Taking po fluids without nausea. No bleeding or hematoma at site. VSS. Discharge instructions given, see sheets, verbalizes understanding. IV discontinued intact. Family requested w/c as parked a long way away. Discharged with family and all belongings in no distress at 1415.
--- NOTE | 2017-05-09 17:47 | DRSVH ---
PROCEDURE: CV TUNNEL CATH PLCMNT 1. Sonographic guidance for venous access. 2. Conscious sedation for 25 minutes. 3. Right internal jugular vein tunneled hemodialysis catheter placement. 4. Fluoroscopic guidance for catheter placement. INDICATIONS: ESRD TECHNIQUE: The indications, alternatives, benefits, risks, and complications of the procedure were e xplained to the patient and any family members present. Informed written consent was obtained and pl aced in the chart. The patient was brought to the angiography suite, and conscious sedation was admi nistered intravenously by intermediate staff, while continuous cardiorespiratory monitoring was pe rformed. Maximum sterile barrier technique was employed per standard protocol, including hand hygiene, cap, ma sk, sterile gown and gloves, and 2% chlorhexidine. Sterile ultrasound probe cover was also utilized. 1% lidocaine was used for local anaesthesia. Under sonographic guidance, the right internal jugular vein was accessed with a Micropuncture set. An 0.035J wire was advanced into the vena cava. Subcuta neous tunnel was created within the right anterior chest wall, through which a 14.5 Frisian double lum en tunneled hemodialysis catheter was advanced. Following sequential venotomy tract dilation, the ca theter was advanced through the peel-away sheath and the tip was placed at the cavoatrial junction. Peel-away sheath was removed. Adequate flow was obtained through both lumens of the catheter. The v enotomy was closed with Vicryl, and the catheter was fastened to the skin with Ticron. Both lumens w ere flushed with heparinized saline. The patient tolerated the procedure without difficulty and was in stable condition at the conclusion of the procedure. COMPARISON: None. FINDINGS: The right internal jugular vein is patent by ultrasound. Fluoroscopic imaging demonstrates tip of th e catheter at the cavoatrial junction. IMPRESSION: Right internal jugular vein tunneled hemodialysis catheter placement using sonographic and fluoroscop ic guidance. Dictated by: Salma Navarro M.D. on 05/09/2017 at 17:44 Approved by: Salma Navarro M.D. on 05/09/2017 at 17:45
== END 2017-05-09 23:59 | disposition home or self-care (01) ==
LOC: SPI 01:02
PROVIDERS: ATTEND Radiology Neuroradiology
DX: I12.0 Hypertensive chronic kidney disease with stage 5 chronic kidney disease or end stage renal disease (principal); N18.6 End stage renal disease; I25.10 Atherosclerotic heart disease of native coronary artery without angina pectoris; E11.9 Type 2 diabetes mellitus without complications; Z79.82 Long term (current) use of aspirin; Z79.02 Long term (current) use of antithrombotics/antiplatelets; Z79.4 Long term (current) use of insulin
CPT/HCPCS: 36415; 36558; 71010; 77001; 85025; 85610; 99152; C1750; C1769; J0690; J1644; J2250; J3010

== ENCOUNTER → 2017-07-10 | Day surgery (SDC) | payer MEDICARE, OTHER ==
[2017-07-10] VITALS (7 sets, daily range): BP systolic 103–136; BP diastolic 62–86; PULSE 57–64; RESP 16; O2SAT 94–99
[~2017-07-10] VITALS: Ht 170.2 cm; Wt 84.0 kg
[~2017-07-10] MED LIST changes: +Heparin 1,000 Unit/mL 10 mL Inj ONE; +Heparin 1,000 Units/500 mL NS Premix IV ONE; +Heparin 10,000 Unit/1,000 mL NS Premix IV ONE; -POTA20TA16 PO; +SEVE800T7 PO; -TORS20TA PO; +TORS20TA3 PO; +fentaNYL-PF 50 mCg/mL 2 mL Inj ONE
[2017-07-10 10:23] LABS: INR 0.99 ratio
--- NOTE | 2017-07-10 15:36 | DRSVH ---
PROCEDURE: AV FISTULA INDICATIONS: ESRD COMPARISON: None. Technique: 1. Conscious sedation for 60 minutes. 2. Antegrade access of the venous limb of the right upper extremity fistula. 3. Fistulogram performed in stations in the [facility]. 4. Sheath removal hemostasis. 5. Retrograde access to the venous limb of the right upper extremity fistula. 6. Fistulogram of multiple tributary veins and the arteriovenous anastomosis. 7. Sheath removal hemostasis. Fluoroscopy time: 7.5 minutes. The indications, alternatives, benefits, risks, and complications of the procedure were explained to the patient and his family. Informed written consent was obtained and placed in the chart. The patie nt was brought to the angiography suite, and conscious sedation was administered intravenously by [facility] nursing staff, while continuous cardiorespiratory monitoring was performed. Maximum sterile barrier technique was employed per standard protocol, including hand hygiene, cap, ma sk, sterile gown and gloves, and 2% chlorhexidine. Sterile ultrasound probe cover was also utilized. 1% lidocaine was used to anesthetize the skin over the area of interest. Using a micropuncture kit, the venous outflow was accessed in antegrade fashion. Fistulogram was performed through the micropun cture sheath. The sheath was then removed and hemostasis was achieved. Next, retrograde access of the venous limb was performed more centrally using ultrasound guidance. Th e micropuncture sheath was exchanged for a 4 [place]an sheath. A microcatheter and wire were used to can nulate a tributary vessel just central to the arteriovenous anastomosis. Venogram was performed. Next , a 4 [place]an catheter was used to cannulate the same tributary vessel. The catheter was then removed, the sheath was removed, and hemostasis was achieved. FINDINGS: There are no stenoses within the visualized portions of the cephalic vein. At the level of the antecubital fossa, the cephalic vein branches into the cephalic and basilic veins. There are no c entral stenoses at either vein to the level of the axillary vein. A moderate-sized tributary vein is present within the peripheral portion of the outflow vein approximately 5 cm central to the arteriove nous anastomosis. This tributary vein has a short trunk and then branches into 2 smaller veins. A sma ll tributary vein is also present within the midportion of the forearm. IMPRESSION: 1. Tributary vein just central to the arteriovenous anastomosis. This may be inhibiting failure of fi stula maturation. Given the short trunk of this vein, and the small caliber and tortuous nature of th e downstream portions of the vein, embolization is not recommended as there is a high likelihood of o ff target embolization within the main cephalic vein. For this reason, surgical ligation is recommend ed. 2. Small midforearm tributary vein. It is unclear whether this is also contributing to failure of the fistula to mature. If there is continued failure of maturation, this could be embolized in the futur e. The findings were discussed with Dr. Berry at 2:30 PM on 07/10/17. Dictated by: Delphine Ford M.D. on 07/10/2017 at 15:17 Approved by: Delphine Ford M.D. on 07/10/2017 at 15:34
== END | disposition home or self-care (01) ==
LOC: SOUO 01:13
PROVIDERS: ATTEND Radiology Vascular & Interventional Radiology
DX: T82.898A Other specified complication of vascular prosthetic devices, implants and grafts, initial encounter (principal); I87.8 Other specified disorders of veins; Y83.2 Surgical operation with anastomosis, bypass or graft as the cause of abnormal reaction of the patient, or of later complication, without mention of misadventure at the time of the procedure; E11.22 Type 2 diabetes mellitus with diabetic chronic kidney disease; I12.0 Hypertensive chronic kidney disease with stage 5 chronic kidney disease or end stage renal disease; N18.6 End stage renal disease; Z99.2 Dependence on renal dialysis; Z87.891 Personal history of nicotine dependence; Z79.4 Long term (current) use of insulin; Z79.02 Long term (current) use of antithrombotics/antiplatelets; Z79.82 Long term (current) use of aspirin; I25.10 Atherosclerotic heart disease of native coronary artery without angina pectoris; G47.33 Obstructive sleep apnea (adult) (pediatric)
CPT/HCPCS: 36415; 36901; 85049; 85610; 99152; 99153; C1769; C1887; J1644; J2250; J3010; Q9967

== ENCOUNTER → 2017-07-18 | Day surgery (SDC) | payer MEDICARE, OTHER ==
[~2017-07-18] VITALS: Ht 170.2 cm; Wt 84.1 kg
[~2017-07-18] MED LIST changes: +0.9% Sodium Chloride 500 ML IV ONE; +Bupivacaine-MPF 0.5% 30 mL Inj INFILTRATE ONE; +Dexamethasone 4 mg/mL Inj IVPUSH PRN; +EPHEDrine Sulfate 50 mg/mL Inj IVPUSH PRN; -Heparin 1,000 Unit/mL 10 mL Inj ONE; -Heparin 1,000 Units/500 mL NS Premix IV ONE; -Heparin 10,000 Unit/1,000 mL NS Premix IV ONE; +Labetalol 5 mg/mL 20 mL Inj IV PRN; +Lactated Ringer's 1,000 ML IV SCH; +Lactated Ringer's 500 ML IV PRN; +MetoCLOpramide 5 mg/mL 2 mL Inj IVPUSH PRN; +MetoCLOpramide 5 mg/mL 2 mL Inj ONE; +Ondansetron 2 mg/mL 2 mL Inj IVPUSH PRN; +Ondansetron 2 mg/mL 2 mL Inj ONE; +Phenylephrine 10,000 mCg/mL Inj IVPUSH PRN; +Propofol 10,000 mCg/mL 20 mL Inj ONE; +fentaNYL-PF 50 mCg/mL 2 mL Inj IVPUSH PRN; -fentaNYL-PF 50 mCg/mL 2 mL Inj ONE
[2017-07-18 12:28] VITALS: BP 154/80; PULSE 62; RESP 16; O2SAT 99
--- NOTE | 2017-07-18 15:01 | PCM.HPANE ---
Patient Data Surgeon Admitting Provider: Attending Provider:Ayana Berry MD Primary Care Physician:Aaron Woods MD Other Provider:Temi Rosasingham Anesthesia Reason for Visit End Stage Renal Failure Ht/WT & BMI Height (Feet): 5 Height (Inches): 7 Weight (Kilograms): 84.1 Body Mass Index 29.00 Allergies Coded Allergies: lactose (Verified Allergy, Unknown, 07/18/17) lisinopril (Verified Adverse Reaction, Severe, cough, 07/17/17) Uncoded Allergies: DAIRY (Adverse Reaction, Severe, DIARRHEA, 03/14/17) Past Anesthesia History Anesthesia History: Positive for:: Fam Anesthesia Reaction (Sister breast CA = prolonged recovery period post op), Denies:: Abnormal Airway, Anesthesia Reactions (feels "wierd" post op secondary to not eating), Difficult Intubation, Fam Malignant Hypertherm, Malignant Hyperthermia Diabetes History Hx Diabetes?: Yes Type of Diabetes: Type II Glycemic Control: Insulin Dependent MRSA MRSA: No Medications Blood Thinner: Aspirin, Plavix Last Dose Blood Thinner: Jul 16, 2017 Hypertension Medication: Yes (Carvedilol) Home Meds Incl Beta Gia: Yes Reported Medications Sevelamer Carbonate (Renvela)800 Mg Rwffsg864 Mg PO TID 90 Days 07/10/17 Carvedilol 25 Mg Eekbyn67 Mg PO BIDWM Ref 0 07/09/17 Clopidogrel 75 Mg Abrthw68 Mg PO DAILY Ref 0 07/09/17 Isosorbide MN ER 60 Mg Tab.er.24h60 Mg PO DAILY 07/09/17 Torsemide 20 Mg Vhwukh37 Mg PO DAILY 30 Days Ref 0 07/09/17 [lancets] No Conflict Check1 Dose TIDAC use to check blood sugar level 04/27/17 Blood Sugar Diagnostic (Test Strips)1 Each Strip1 Each TIDAC for diabetes 04/27/17 Insulin Aspart (NovoLOG U-100 Pen)100 Unit/Ml Insuln.wlu62-77 Units SQ BIDAC # 15 04/05/17 Insulin Glargine (Lantus U100 Insulin Vial)100 Unit/Ml Grbd12-78 Unit SUBQ QAM # 1 VIAL Ref 0 04/05/17 Nitroglycerin SL (Nitrostat)0.4 Mg Tab.subl0.4 Mg SL Q5MIN PRN CHEST PAIN #1 BOTTLE 5/19/17 Atorvastatin (Lipitor)40 Mg Ezeugi85 Mg PO HS Ref 0 01/27/17 Cholecalciferol (Vitamin D3) (Vitamin D3)2,000 Unit Capsule2,000 Unit PO DAILY 01/27/17 Calcitriol (Rocaltrol)0.25 Mcg Capsule0.5 Mcg PO Q48hrs #30 08/21/16 Aspirin 81 Mg Wgcnhc08 Mg PO DAILY Ref 0 08/21/16 Amlodipine 5 Mg Tablet5 Mg PO BID #30 08/21/16 History History of ENT Problems?: Yes HEENT History: Positive for:: Cataracts (Ext OU) Denies:: Abnormal Airway Difficult Intubation Dysphagia Hearing Problem Sinus Problem TMJ Denture Type: None Teeth Condition: Within Normal Limits Hx of Heart Problems?: Yes Cardiovascular History: Positive for:: Cardiac Surgery (2 cardiac caths last ) Chest Pain Congestive Heart Failure Edema Hypertension Denies:: AICD Abdominal Aortic Aneurism Atrial Fibrillation Heart Murmur Irregular Heartbeat Pacemaker Rheumatic Fever Thrombophlebitis Valvular Heart Disease Hx of Respiratory Problem?: Yes Respiratory History: Positive for:: Use of C-PAP Machine (DARRICK+ SLEEP STUDY 12/2016 CPAP) Denies:: Asthma COPD Chest Surgery Cough Dyspnea Emphysema Hemoptysis Oxygen Administration Pneumonia Pulmonary Embolism Tuberculosis Hx Neurologic Problems?: Yes Neurological History: Positive for:: Dizziness (after bending over) Denies:: Alzheimer's Disease CVA Dementia Headaches Multiple Sclerosis Parkinson's Disease Seizures Hx of GI Problems?: No Hx of Problems?: Yes Genitourinary History: Positive for:: HX of Hemodialysis Denies:: Kidney Stones Urinary Tract Infection HX of Peritoneal Dialysis: No Male Hx: Denies:: Prostate Problems Scrotal Mass Testicular Surgery Skin History: Denies:: History Skin Disorders? Pressure Ulcers Hx Musculoskeletal Problems?: Yes Musculoskeletal History: Denies:: Back Injury Degenerative Joint Joint Replacement Musculoskeletal Trauma Systemic Lupus Hx of Psycho/Social Problems?: No Psycho Social History: Denies:: Anxiety Bipolar Disorder Hx Depression Suicide Attempt Hx Surgeries?: Yes (heart cath, toes removed 2011 ) Hx Any Other Health Problems?: Yes Other History: Positive for:: Hospitalization (toe removal rt foot 03/2012) Denies:: Cancer Endocrine Disease Thyroid Disease History Blood Transfusions: Positive for:: Accept Blood Products? Denies:: Blood Transfuse Reaction Blood Transfusions Hx Diabetes: Yes Hx Alcohol Use: NoHx Substance Use: No Smoking Status: Former Smoker Have You Smoked inLast 12 mo: No Stop/Bang Treated for Sleep Apnea?: Yes Do You Have a CPAP Machine?: Yes DARRICK Risk Assessment: High Risk, =/>3 Yes Risk Assessment Category Category 1A: Patient has history of documented sleep apnea, and HAS NOT received any narcotic, sedative or anesthesia administration during this stay. Category 1B: Patient has history of documented sleep apnea, and HAS received any narcotic , sedative or anesthesia administration during this stay Category 2: Patient has SUSPECTED Obstructive Sleep Apnea, and HAS received any narcotic , sedative or anesthesia administration during this stay. Category 3: Patient has SUSPECTED Obstructive Sleep Apnea and HAS NOT received narcotic, sedative or anesthesia administration during this stay. Category 4: Outpatient in Procedural Areas with known sleep apnea or who screen positive for High Risk via the STOP/BANG questionnaire. Exam Exam Vital Signs Vital Signs Date Time Temp Pulse Resp B/P Pulse Ox O2 Delivery O2 Flow Rate FiO2 07/18/17 12:28 36.1 62 16 154/80 99 Room Air General Appearance: Oriented X3 HEENT/AIRWAY: MP 2 Lungs: Normal Air Movement Heart: Regular Rate/Rhythm Meds/Labs/Diagnostics Labs Test 07/18/17 13:09 Potassium Level 3.3mEq/L (3.5-5.2) Plan Impression Patient chart reviewed, patient interviewed and anesthestic plan with risks, benefits, and alternatives discussed, and informed consent obtained. NPO per Anesth. Guidelines: Yes ASA Physical Status: ASA3 Severe Disease Anesthetic Plan: MAC Bene/Risks/Altern/Consents: Yes HP Complete Prior to Induction: Yes Mike Trammell MD Jul 18, 2017 15:01
--- NOTE | 2017-07-18 16:01 | PCM.SURGOP ---
Surgical Operative Report Date of Service: Jul 18, 2017 Pre Operative Diagnosis End stage renal disease s/p R radiocephalic fistula with failure to mature Post Operative Diagnosis End stage renal disease s/p R radiocephalic fistula with failure to mature Procedure: Ligation of venous branch, right radiocephalic fistula Surgeon and Fig Caprifier: Surgeon: Ayana Berry MD Assistants: Edil Cook MD R3, Julienne Cordova, MS3 Indication for Procedure This is a 62-year-old man with end-stage renal disease. I created a right radiocephalic fistula 3 months ago, however, and had failure to mature. He continued dialyzing through a tunneled catheter. He underwent angiogram which demonstrated a small branch with a bifurcation to 2 smaller branches, which were thought to be diverting flow and causing failure to mature. A coil could not be placed at the time of angiogram. Therefore, surgical ligation was indicated. Findings: The branch was marked and ultrasound preoperatively. It was easily identified surgically and ligated. The main cephalic vein was very large and had an arterial pulsation in it near the elbow, with a thrill in the fistula itself. Procedure Details The patient was brought to the operating room and placed in supine position. Monitored anesthesia care was used. The right arm was prepped and draped in sterile fashion. A preprocedural timeout was performed to confirm the correct patient, procedure, site, and side. The location of the venous branch had been marked preoperatively in ultrasound. Local anesthetic was infused, and a 3 cm incision was made overlying this site , in longitudinal fashion. Dissection revealed the main cephalic vein which appeared approximately 8 mm in size, and a small branch, approximately 2 mm in size, coming off of it with a bifurcation. This branch was ligated twice using 3-0 silk and divided in between them. The main cephalic vein was checked, and continued to have a good thrill near the wrist and arterial pulsation near the elbow. Skin was closed in 2 layers with 3-0 Vicryl on the deep layer and 4-0 Monocryl running superficially. Dermabond was placed. The patient tolerated the procedure well. Complications There were no periprocedural complications identified. Surgical Specimen Removed: No Specimen sent to Pathology: No Anesthetic Plan: MAC Grafts, Implants: None Output, Estimated Blood Loss: 1 (ml) Blood Administration during claros: No Ayana Berry MD Jul 18, 2017 16:01
[2017-07-18 16:09] VITALS: BP 103/58; PULSE 50; RESP 14; O2SAT 100
[2017-07-18 16:18] VITALS: BP 88/52; PULSE 44; RESP 16; O2SAT 97
[2017-07-18 16:25] VITALS: BP 94/58; PULSE 46; RESP 18; O2SAT 97
--- NOTE | 2017-07-22 08:23 | DRSVH ---
PROCEDURE: US AV FISTULA MAP ARM, RIGHT INDICATIONS: MAP RT CEPHALIC FOR LIGATION/FISTULA TECHNIQUE: Color and pulse Doppler interrogation was performed of the upper extremity arterial and venous system s at the elbow and forearm, with image documentation. COMPARISON: [facility], [place], [facility], 06/10/2017, 14:20. FINDINGS: Preoperative marking of the right upper extremity cephalic vein at the level of the forear m was performed. IMPRESSION: Preoperative ultrasound marking the right cephalic vein within the forearm. Dictated by: Bj BROWN Interpreted: Delphine Ford MD on 07/21/2017 at 8:47 Approved by: Delphine Ford M.D. on 07/22/2017 at 8:22
== END | disposition home or self-care (01) ==
LOC: SAS 12:12
PROVIDERS: ATTEND Surgery
DX: I12.0 Hypertensive chronic kidney disease with stage 5 chronic kidney disease or end stage renal disease (principal); N18.6 End stage renal disease; I73.9 Peripheral vascular disease, unspecified; I25.10 Atherosclerotic heart disease of native coronary artery without angina pectoris; G47.33 Obstructive sleep apnea (adult) (pediatric); E11.22 Type 2 diabetes mellitus with diabetic chronic kidney disease; E78.00 Pure hypercholesterolemia, unspecified; N40.0 Benign prostatic hyperplasia without lower urinary tract symptoms; Z87.891 Personal history of nicotine dependence; Z79.4 Long term (current) use of insulin; Z79.82 Long term (current) use of aspirin; Z79.02 Long term (current) use of antithrombotics/antiplatelets; Z99.2 Dependence on renal dialysis
CPT/HCPCS: 36415; 36832; 84132; J2405; J2704; J2765; J7030